=== PATIENT | female | born 1965 | race African-American/Black ===

== ENCOUNTER 2017-06-15 15:49 | Inpatient (IN) | payer OTHER ==
[2017-06-15 15:56] VITALS: BMI 38.7
[2017-06-15] MEDS ORDERED: ACETAMINOPHEN 1000 MG/100 ML VIAL (NON FORMULARY) IVPB ONE (17:05)
[2017-06-15] MEDS ORDERED: LABETALOL HCL 5 MG/1 ML (100MG/20 ML VIAL) IVPUSH ONE (17:05)
[2017-06-15] MEDS ORDERED: ACETAMINOPHEN INJECTION 100 ML IVPB ONE (17:18)
[2017-06-15] MEDS ORDERED: LABETALOL HCL 5 MG/1 ML (200MG/40ML VIAL) IVPB ONE (17:18)
[2017-06-15 17:41] LABS: BASOPHIL 1.7 % (0-2.0); EOSINOPHIL 1.9 % (0-4.5); MCH 29.3 pg (25.7-33.7); MCHC 32.9 g/dl (32.0-36.0); MEAN CELL VOLUME 89.1 fl (80-96); MEAN PLT VOLUME 9.6 fl (7.5-11.1); NEUTROPHILS 53.8 % (42.8-82.8); PLATELET COUNT 228 K/MM3 (134-434); RDW 14.9 % (11.6-15.6); WHITE BLOOD COUNT 6.1 K/mm3 (4.0-10.0)
--- NOTE | 2017-06-15 17:47 | PDOC ---
History of Present Illness - General Chief Complaint: Blood Pressure Problem Stated Complaint: HIGH BP Time Seen by Provider: 06/15/17 16:51 History Source: Patient Exam Limitations: No Limitations - History of Present Illness Initial Comments: 06/15/17 17:47 Patient with history of hypertension, hyper cholesterol, and obesity presents with right frontal throbbing pressure since late afternoon and so had checked her blood pressure work which was noted to be 180/112. Patient currently denies chest pain, shortness of breath, visual changes, dizziness, nausea, follow pain , change in urine pattern, change in bowel pattern, lower extremity edema, orthopnea, or skin discoloration. Patient states takes her blood pressure medication losartan daily and denies any recent change in medications, weight, diet or stress level. Timing/Duration: 4-6 hours Severity: moderate Associated Symptoms: reports: headaches Past History - Travel Traveled outside of the country in the last 30 days: No - Past Medical History Allergies/Adverse Reactions: Allergies Allergy/AdvReac Type Severity Reaction Status Date / Time No Known Allergies Allergy Verified 06/15/17 15:56 Home Medications: Ambulatory Orders Diclofenac Sodium 50 mg PO DAILY 06/15/17 Losartan Potassium 0 mg PO DAILY 06/15/17 HTN: Yes Hypercholesterolemia: Yes - Surgical History Abdominal Surgery: Yes (FIBROIDS) - Reproductive History (#): 5 Para: 2 Therapeutic (s) & number: Yes (3) Tubal Ligation: Yes - Psycho/Social/Smoking Cessation Hx Anxiety: No Suicidal Ideation: No Smoking Status: No Smoking History: Never smoked Have you smoked in the past 12 months: No Number of Cigarettes Smoked Daily: 0 Information on smoking cessation initiated: No Hx Alcohol Use: Yes Drug/Substance Use Hx: No Substance Use Type: Alcohol Hx Substance Use Treatment: No Patient Lives Alone: No Lives with/in: spouse/SO Review of Systems - Review of Systems Able to Perform ROS?: Yes Constitutional: No: Symptoms Reported HEENTM: No: Symptoms Reported Respiratory: No: Symptoms reported Cardiac (ROS): No: Symptoms Reported ABD/GI: No: Symptoms Reported : No: Symptoms Reported Musculoskeletal: No: Symptoms Reported Integumentary: No: Symptoms Reported Neurological: Yes: Headache. No: Weakness, Dizziness Endocrine: No: Symptoms Reported *Physical Exam - Vital Signs Last Vital Signs Temp Pulse Resp BP Pulse Ox 97.8 F 76 18 181/116 100 06/15/17 15:52 06/15/17 17:26 06/15/17 17:26 06/15/17 17:26 06/15/17 17:26 - Physical Exam General Appearance: Yes: Nourished, Appropriately Dressed. No: Apparent Distress HEENT: positive: EOMI, LINDEN. negative: Pale Conjunctivae Neck: positive: Supple. negative: Other (no jvd) Respiratory/Chest: positive: Lungs Clear, Normal Breath Sounds. negative: Respiratory Distress, Accessory Muscle Use Cardiovascular: positive: Regular Rhythm, Regular Rate. negative: Murmur Gastrointestinal/Abdominal: positive: Soft. negative: Tenderness Extremity: positive: Normal Capillary Refill. negative: Pedal Edema Integumentary: positive: Normal Color, Warm, Moist Neurologic: positive: Normal Mood/Affect, Motor Strength 5/5 Heart Score/ECG Review - ECG Intrepretation Rhythm: Regular Rhythm (sinus rhythm at 73 wit Q waves noted in V1 and V2 and lead 3. Otherwise no ST elevation or depression noted.) ED Treatment Course - LABORATORY CBC & Chemistry Diagram: 06/15/17 17:27 06/15/17 17:27 - RADIOLOGY Radiology Studies Ordered: Category Date Time Status HEAD CT WITHOUT CONTRAST [CT] Stat CT Scan 06/15/17 17:05 Ordered CHEST X-RAY PORTABLE* [RAD] Stat Radiology 06/15/17 17:05 Ordered - Medications Given in the ED: ED Medications Discontinued Medications Generic Name Dose Route Start Last Admin Trade Name Freq PRN Reason Stop Dose Admin Acetaminophen 1,000 mg 06/15/17 17:05 06/15/17 17:35 Ofirmev Injection - IVPB 06/15/17 17:06 1,000 mg ONCE ONE Administration Labetalol HCl 20 mg 06/15/17 17:05 06/15/17 17:35 Normodyne Injection - IVPUSH 06/15/17 17:06 20 mg ONCE ONE Administration Medical Decision Making - Medical Decision Making 06/15/17 16:54 Patient history of hypertension dyslipidemia presenting with right frontal headache and elevated BP. Patient on exam and had no acute findings. Patient concerning for hypertension and emergency and was ordered for end organ workup including a head CT and labetalol IV push 20 mg. We'll revitalize shortly. 06/15/17 18:00 Selected Entries 06/15/17 17:26 Pulse Rate [ 76 Left] Respiratory 18 Rate Blood Pressure 181/116 [Arm] O2 Sat by Pulse 100 Oximetry (%) Patient ordered for clonidine 0.2 mg by mouth. patient states headache has resolved 06/15/17 18:49 Laboratory Tests 04/03/15 06/15/17 06/15/17 14:32 17:27 17:27 WBC 6.1 D Hgb 13.0 Hct 39.5 Plt Count 228 D Neutrophils % 53.8 BUN 21 H D Creatinine 1.1 H D Calcium 10.2 H Creatine Kinase 317 H D Troponin I 0.03 0.12 H Patient states headache has resolved. Case discussed with Dr. Clark Doan and will admit to telemetry observation. Patient also be placed in for an echocardiogram and consultation to Dr. Sommers, dressage instructor on-call. *DC/Admit/Observation/Transfer Diagnosis at time of Disposition: Hypertensive emergency, Elevated troponin level - Discharge Dispostion Admit: Yes
[2017-06-15 18:10] LABS: URINE APPEARANCE CLEAR; URINE BILIRUBIN NEGATIVE (NEGATIVE); URINE BLOOD NEGATIVE (NEGATIVE); URINE COLOR LTYELLOW; URINE GLUCOSE (UA) NEGATIVE (NEGATIVE); URINE KETONE NEGATIVE (NEGATIVE); URINE LEUK ESTERASE NEGATIVE (NEGATIVE); URINE NITRITE NEGATIVE (NEGATIVE); URINE PROTEIN NEGATIVE (NEGATIVE); URINE UROBILINOGEN NEGATIVE mg/dL (0.2-1.0)
[2017-06-15] MEDS ORDERED: cloNIDine HCL 0.1 MG TABLET PO ONE (18:11)
[2017-06-15 18:22] LABS: ANION GAP 9 (8-16); BILIRUBIN,TOTAL 0.3 mg/dL (0.2-1.0); CALCIUM 10.2 mg/dL (8.5-10.1); CO2 27 mmol/L (21-32); CREATININE 1.1 mg/dL (0.55-1.02); GLUCOSE,RANDOM 91 mg/dL (74-106); SGOT/AST 20 U/L (15-37); SGPT/ALT 31 U/L (12-78); TOT PROT 7.7 g/dl (6.4-8.2)
[2017-06-15 18:23] LABS: MAGNESIUM 2.4 mg/dL (1.8-2.4)
[2017-06-15 18:25] LABS: ALK PHOS 109 U/L (45-117); TROPONIN I 0.12 ng/ml (0.00-0.05)
--- NOTE | 2017-06-15 18:33 | PDOC ---
*Physical Exam - Vital Signs Last Vital Signs Temp Pulse Resp BP Pulse Ox 97.8 F 76 18 181/116 100 06/15/17 15:52 06/15/17 17:26 06/15/17 17:26 06/15/17 17:26 06/15/17 17:26 ED Treatment Course - LABORATORY CBC & Chemistry Diagram: 06/16/17 07:20 06/17/17 06:00 - ADDITIONAL ORDERS Additional order review: Laboratory Results 06/15/17 06/15/17 06/15/17 17:27 17:27 17:10 Sodium 140 Potassium 3.9 Chloride 104 Carbon Dioxide 27 Anion Gap 9 BUN 21 H D Creatinine 1.1 H D Creat Clearance w eGFR 52.58 Random Glucose 91 Calcium 10.2 H Magnesium 2.4 Total Bilirubin 0.3 D AST 20 ALT 31 D Alkaline Phosphatase 109 D Creatine Kinase 317 H D Troponin I 0.12 H B-Natriuretic Peptide 16.38 Total Protein 7.7 Albumin 4.0 Urine Color Ltyellow Urine Appearance Clear Urine pH 6.0 Urine Protein Negative Urine Glucose (UA) Negative Urine Ketones Negative Urine Blood Negative Urine Nitrite Negative Urine Bilirubin Negative Urine Urobilinogen Negative Ur Leukocyte Esterase Negative 06/15/17 17:27 RBC 4.44 MCV 89.1 MCHC 32.9 RDW 14.9 D MPV 9.6 Neutrophils % 53.8 Lymphocytes % 34.3 D Monocytes % 8.3 Eosinophils % 1.9 D Basophils % 1.7 - Medications Given in the ED: ED Medications Discontinued Medications Generic Name Dose Route Start Last Admin Trade Name Viktoria PRN Reason Stop Dose Admin Acetaminophen 1,000 mg 06/15/17 17:05 06/15/17 17:35 Ofirmev Injection - IVPB 06/15/17 17:06 1,000 mg ONCE ONE Administration Labetalol HCl 20 mg 06/15/17 17:05 06/15/17 17:35 Normodyne Injection - IVPUSH 06/15/17 17:06 20 mg ONCE ONE Administration Medical Decision Making - Medical Decision Making 06/15/17 18:33 Pt seen by the Advanced Practice Provider under my direct supervision Ancillary studies reviewed I agree with plan as outlined by the Advanced Practice Provider ROGE Adams *DC/Admit/Observation/Transfer Diagnosis at time of Disposition: Hypertensive emergency, Elevated troponin - Discharge Dispostion Disposition: HOME Condition at time of disposition: Improved - Prescriptions
[2017-06-15] MEDS ORDERED: cloNIDine HCL 0.1 MG TABLET ONE (19:00)
--- NOTE | 2017-06-15 19:39 | PN ---
Teaching Attending Note Name of Resident: Jazzmine Mccormick ATTENDING PHYSICIAN STATEMENT I saw and evaluated the patient. I reviewed the resident's note and discussed the case with the resident. I agree with the resident's findings and plan as documented. SUBJECTIVE: 52 F with pmhx of HTN, HLD, and Obesity presents with a throbbing headache. Described as right frontal. States headache is very mild now, no visual changes , chest pain or pressure. No n/v/d. States she had taken her med this am. ED Course: Given Labetolol and Clonidine repeat BP 127/81 At 2100 OBJECTIVE: Physical: VS: Vital Signs Period Temp Pulse Resp BP Sys/Garcia Pulse Ox Last 24 Hr 97.8 F 74-76 18-18 181-202/116-122 100-100 GEN: NAD, Resting in bed able to speak full sentences HEENT: NCAT, PERRL CARD: RRR S1,S2 RESP: CTAB ABD: BS X4, NTD to palpation EXT: - C/C/E CBCD WBC 6.1 K/mm3 (4.0-10.0) D 06/15/17 17: RBC 4.44 M/mm3 (3.60-5.2) 06/15/17 17:27 Hgb 13.0 GM/dL (10.7-15.3) 06/15/17 17: Hct 39.5 % (32.4-45.2) 06/15/17 17:27 MCV 89.1 fl (80-96) 06/15/17 17:27 MCHC 32.9 g/dl (32.0-36.0) 06/15/17 17:27 RDW 14.9 % (11.6-15.6) D 06/15/17 17:27 Plt Count 228 K/MM3 (134-434) D 06/15/17 17:27 MPV 9.6 fl (7.5-11.1) 06/15/17 17:27 CMP Sodium 140 mmol/L (136-145) 06/15/17 17:27 Potassium 3.9 mmol/L (3.5-5.1) 06/15/17 17:27 Chloride 104 mmol/L (98-107) 06/15/17 17:27 Carbon Dioxide 27 mmol/L (21-32) 06/15/17 17:27 Anion Gap 9 (8-16) 06/15/17 17:27 BUN 21 mg/dL (7-18) H D 06/15/17 17: Creatinine 1.1 mg/dL (0.55-1.02) H D 06/15/17 17:27 Creat Clearance w eGFR 52.58 (>60) 06/15/17 17: Random Glucose 91 mg/dL (74-106) 06/15/17 17: Calcium 10.2 mg/dL (8.5-10.1) H 06/15/17 17: Total Bilirubin 0.3 mg/dL (0.2-1.0) D 06/15/17: AST 20 U/L (15-37) 06/15/17 17: ALT 31 U/L (12-78) D 06/15/17 17: Alkaline Phosphatase 109 U/L (45-117) D 06/15/17: Total Protein 7.7 g/dl (6.4-8.2) 06/15/17: Albumin 4.0 g/dl (3.4-5.0) 06/15/17 17: CARDIAC ENZYMES Creatine Kinase 317 IU/L (26-192) H D 06/15/17 17: Troponin I 0.12 ng/ml (0.00-0.05) H 06/15/17 17:27 CT HEAD: Negative EKG: NSR 73 QTc 438 Q waves V1/V2 CXR: Negative for acute process ASSESSMENT AND PLAN: 61 F with pmhx of HTN who presented with headache and found to have HTN urgency 1.) HTN Emergency - Elevated Trop/EKG- Possibly due to demand will trend - ASA - C/W Home BP meds, trend down slowly - CT Head negative - Heart score: - Echo complete 2.) NEGRA-?CKD (Cr 1.4 1 yr ago) - C/w Losartan for now 2. DVT PPx - Low Risk- SCDS Rest as per resident note Place in OBS- TELE
[2017-06-15] MEDS ORDERED: ASPIRIN 325 MG TABLET PO ONE (21:07)
--- NOTE | 2017-06-15 21:28 | HP ---
CHIEF COMPLAINT: GARCIA, high blood pressure PCP: Dr. Michelle Torres MD HISTORY OF PRESENT ILLNESS: 52 yo obese woman with PMH of HTN and HLD who, while at work earlier this afternoon, had acute onset frontal and temporal GARCIA, felt lightheaded, and found her BP elevated to 170/110. 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 and reports typing at her desk when she developed a frontal GARCIA with throbbing at her temples bilaterally. The GARCIA prompted her to measure her BP, which was found to be severely elevated. She denies any changes in vision, SOB, chest pain, pressure, or tightness. No recent illness, fever, chills, or n/v. Denies dysuria, frequency or urgency. Regular BMs. ER course was notable for: (1) initial BP 202/102 --> given labetolol 20mg IVpush ONCE and Clonidine 0.2mg PO ONCE --> BP 123/79 (2) Head CT and CXR - no e/o acute pathology (3) GARCIA/temporal pain milder from initial ED presentation Recent Travel: no PAST MEDICAL HISTORY: #HTN - reports being diagnosed approximately 10 years ago. Current home medication is Losartan 25mg PO daily. #HLD #? Patient on Diclofenic - but does not know indication PAST SURGICAL HISTORY: #tubal ligation #uterine fibroid embolization Social History: Works for [employer] Smoking: never Alcohol: social Drugs: denies Family History: non-contributory Allergies: NKDA HOME MEDICATIONS: Home Medications Medication Instructions Recorded Diclofenac Sodium 50 mg PO DAILY 06/15/17 Losartan Potassium 25 mg PO DAILY 06/15/17 REVIEW OF SYSTEMS CONSTITUTIONAL: Absent: fever, chills, diaphoresis, generalized weakness, malaise, loss of appetite, weight change HEENT: Absent: rhinorrhea, nasal congestion, throat pain, throat swelling, difficulty swallowing, mouth swelling, ear pain, eye pain, visual changes CARDIOVASCULAR: Absent: chest pain, syncope, palpitations, irregular heart rate, lightheadedness , peripheral edema RESPIRATORY: Absent: cough, shortness of breath, dyspnea with exertion, orthopnea, wheezing, stridor, hemoptysis GASTROINTESTINAL: Absent: abdominal pain, abdominal distension, nausea, vomiting, diarrhea, constipation, melena, hematochezia GENITOURINARY: Absent: dysuria, frequency, urgency, hesitancy, hematuria, flank pain, genital pain MUSCULOSKELETAL: Absent: myalgia, arthralgia, joint swelling, back pain, neck pain SKIN: Absent: rash, itching, pallor HEMATOLOGIC/IMMUNOLOGIC: Absent: easy bleeding, easy bruising, lymphadenopathy, frequent infections ENDOCRINE: Absent: unexplained weight gain, unexplained weight loss, heat intolerance, cold intolerance NEUROLOGIC: +headache, lightheadedness Absent: focal weakness or paresthesias, dizziness, unsteady gait, seizure, mental status changes, bladder or bowel incontinence PSYCHIATRIC: Absent: anxiety, depression, suicidal or homicidal ideation, hallucinations. PHYSICAL EXAMINATION Vital Signs - 24 hr 06/15/17 06/15/17 06/15/17 15:52 17:26 20:43 Temperature 97.8 F Pulse Rate 74 Pulse Rate [ 76 79 Left] Respiratory 18 18 17 Rate Blood Pressure 202/122 Blood Pressure 181/116 123/79 [Arm] O2 Sat by Pulse 100 100 99 Oximetry (%) GENERAL: Awake, alert, and fully oriented, in no acute distress. HEAD: Normal with no signs of trauma, no ttp over temples, frontal, or maxillary sinuses EYES: PERRLA, EOMI, sclera anicteric, conjunctiva clear EARS, NOSE, THROAT: Oropharynx clear without exudates. Moist mucous membranes. NECK: Supple, no cervical LAD LUNGS: CTAB, no wheezes, and no crackles. No accessory muscle use. HEART: RRR, normal S1/S2, no murmur, rub or gallop. ABDOMEN: Obese, soft, NTND, normoactive bowel sounds LOWER EXTREMITIES: 2+ pulses, warm, well-perfused. No calf tenderness. No peripheral edema. NEUROLOGICAL: Grossly intact, not formally tested. PSYCHIATRIC: Cooperative. Good eye contact. Appropriate mood and affect. SKIN: Warm, dry, normal turgor, no rashes or lesions noted Laboratory Last Values WBC 6.1 K/mm3 (4.0-10.0) D 06/15/17 17: RBC 4.44 M/mm3 (3.60-5.2) 06/15/17 17:27 Hgb 13.0 GM/dL (10.7-15.3) 06/15/17 17: Hct 39.5 % (32.4-45.2) 06/15/17 17: MCV 89.1 fl (80-96) 06/15/17 17: MCH 29.3 pg (25.7-33.7) 06/15/17 17: MCHC 32.9 g/dl (32.0-36.0) 06/15/17 17: RDW 14.9 % (11.6-15.6) D 06/15/17 17: Plt Count 228 K/MM3 (134-434) D 06/15/17 17: MPV 9.6 fl (7.5-11.1) 06/15/17 17: Neutrophils % 53.8 % (42.8-82.8) 06/15/17: Lymphocytes % 34.3 % (8-40) D 06/15/17: Monocytes % 8.3 % (3.8-10.2) 06/15/17: Eosinophils % 1.9 % (0-4.5) D 06/15/17: Basophils % 1.7 % (0-2.0) 06/15/17 17: Sodium 140 mmol/L (136-145) 06/15/17 17: Potassium 3.9 mmol/L (3.5-5.1) 06/15/17: Chloride 104 mmol/L (98-107) 06/15/17: Carbon Dioxide 27 mmol/L (21-32) 06/15/17 17: Anion Gap 9 (8-16) 06/15/17 17: BUN 21 mg/dL (7-18) H D 06/15/17 17: Creatinine 1.1 mg/dL (0.55-1.02) H D 06/15/17 17: Creat Clearance w eGFR 52.58 (>60) 06/15/17 17: Random Glucose 91 mg/dL (74-106) 06/15/17 17: Calcium 10.2 mg/dL (8.5-10.1) H 06/15/17 17: Magnesium 2.4 mg/dL (1.8-2.4) 06/15/17 17: Total Bilirubin 0.3 mg/dL (0.2-1.0) D 06/15/17 17: AST 20 U/L (15-37) 06/15/17 17:27 ALT 31 U/L (12-78) D 06/15/17 17:27 Alkaline Phosphatase 109 U/L (45-117) D 06/15/17 17:27 Creatine Kinase 317 IU/L (26-192) H D 06/15/17 17:27 Creatine Kinase Index 0.7 % (0.0-5.0) 06/15/17 17:27 CK-MB (CK-2) 2.218 ng/ml (0.5-3.6) 06/15/17 17:27 Troponin I 0.12 ng/ml (0.00-0.05) H 06/15/17 17:27 B-Natriuretic Peptide 16.38 pg/ml (5-125) 06/15/17 17:27 Total Protein 7.7 g/dl (6.4-8.2) 06/15/17 17:27 Albumin 4.0 g/dl (3.4-5.0) 06/15/17 17:27 Urine Color Ltyellow 06/15/17 17:10 Urine Appearance Clear 06/15/17 17:10 Urine pH 6.0 (5.0-8.0) 06/15/17 17:10 Urine Protein Negative (NEGATIVE) 06/15/17 17:10 Urine Glucose (UA) Negative (NEGATIVE) 06/15/17 17:10 Urine Ketones Negative (NEGATIVE) 06/15/17 17:10 Urine Blood Negative (NEGATIVE) 06/15/17 17:10 Urine Nitrite Negative (NEGATIVE) 06/15/17 17:10 Urine Bilirubin Negative (NEGATIVE) 06/15/17 17:10 Urine Urobilinogen Negative mg/dL (0.2-1.0) 06/15/17 17:10 Ur Leukocyte Esterase Negative (NEGATIVE) 06/15/17 17:10 IMAGING: Head CT (06/15/2017): No acute pathology CXR (06/15/2017): No pneumothorax, pleural effusion, or consolidation EKG (06/15/2017): NSR, rate 73, QTc 438, normal axis, Q waves in septal leads V1 ,V2 ASSESSMENT/PLAN: 52yo woman with h/o HTN presents in hypertensive emergency and admitted for continuous cardiac observation. #Hypertensive emergency -Initial troponin elevated - likely 2/2 to demand. Will trend q6h -Repeat EKG - initial showed Q waves in V1, V2. Repeat ordered in 6h -ASA 325mg PO ONCE -ECHO ordered -Cardiology consulted #NEGRA vs CKD vs acute on CKD -Creatine 1.1 (last known 1.4 in Aug 2015) -Continue home Losartan 25mg PO daily #F/E/N -Hold IVF -Electrolytes wnl -Na controlled diet #Prophylaxis -DVT: low risk - encourage early ambulation -GI ppx not indicated #Dispo -Admit to observation telemetry -FULL code d/w Dr. Deleon. Jazzmine Mccormick MD PGY-1 Visit type - Emergency Visit Emergency Visit: Yes ED Registration Date: 06/17/17 Care time: The patient presented to the Emergency Department on the above date and was hospitalized for further evaluation of their emergent condition. - New Patient This patient is new to me today: Yes Date on this admission: 06/17/17 - Critical Care Critical Care patient: No
--- NOTE | 2017-06-16 00:21 | CON.CARD ---
Consult Consult Specialty:: cardiology Reason for Consultation:: HTN - History of Present Illness Chief Complaint: Pt still with headache. History of Present Illness: 52 yr old woman with history of hypertension, hypercholesterol, and obesity, presents with right frontal throbbing pressure in head since late afternoon and so had checked her blood pressure work which was noted to be 180/112. Patient currently denies chest pain, shortness of breath, visual changes, dizziness, nausea, follow pain, change in urine pattern, change in bowel pattern, lower extremity edema, orthopnea, or skin discoloration. Patient states takes her blood pressure medication losartan daily and denies any recent change in medications, weight, diet or stress level. Timing/Duration: 4-6 hours Severity: moderate Associated Symptoms: reports: headaches - History Source History Provided By: Patient, Medical Record Limitations to Obtaining History: No Limitations - Past Medical History Cardio/Vascular: Yes: HTN, Hyperlipdemia, Other (obesity) ...LMP: 07/07/15 - Alcohol/Substance Use Hx Alcohol Use: Yes - Smoking History Smoking history: Never smoked Have you smoked in the past 12 months: No Aproximately how many cigarettes per day: 0 Home Medications - Allergies Allergies/Adverse Reactions: Allergies Allergy/AdvReac Type Severity Reaction Status Date / Time No Known Allergies Allergy Verified 06/15/17 15:56 - Home Medications Home Medications: Ambulatory Orders Losartan Potassium 100 mg PO DAILY 06/15/17 Triamterene/Hydrochlorothiazid [Triamterene-Hctz 37.5-25 mg Cp] 1 each PO DAILY 06/16/17 Atorvastatin Ca [Lipitor] 40 mg PO HS #30 tablet 06/17/17 Family Disease History - Family Disease History Family History: Unable to Obtain Review of Systems - Review of Systems Constitutional: reports: No Symptoms Eyes: reports: No Symptoms HENT: reports: Other (throbbing GARCIA) Neck: reports: No Symptoms Cardiovascular: reports: No Symptoms Respiratory: reports: No Symptoms Gastrointestinal: reports: No Symptoms Genitourinary: reports: No Symptoms Breasts: reports: No Symptoms Reported Musculoskeletal: reports: Muscle Pain Integumentary: reports: No Symptoms Neurological: reports: No Symptoms Endocrine: reports: No Symptoms Hematology/Lymphatic: reports: No Symptoms Psychiatric: reports: No Symptoms - Risk Factors Known Risk Factors: Yes: Age, Hypercholesterolemia, Hypertension, Physical Inactivity Vital Signs: Vital Signs Temperature 97.9 F 06/15/17 22:45 Pulse Rate 80 06/15/17 22:45 Respiratory Rate 20 06/15/17 22:45 Blood Pressure 135/82 06/15/17 22:45 O2 Sat by Pulse Oximetry (%) 99 06/15/17 20:43 Constitutional: Yes: Anxious Eyes: Yes: WNL HENT: Yes: WNL Neck: Yes: WNL Respiratory: Yes: WNL Gastrointestinal: Yes: Normal Bowel Sounds Renal/: Yes: WNL Cardiovascular: Yes: Regular Rate and Rhythm JVD: No Carotid Bruit: No PMI: Non-Displaced Heart Sounds: Yes: S1, S2, S4 Murmur: Yes: Systolic Murmur, Grade 2 Musculoskeletal: Yes: Back Pain, Muscle Weakness Extremities: Yes: Cool Edema: No Peripheral Pulses WNL: Yes Integumentary: Yes: WNL Neurological: Yes: Alert, Oriented, Weakness Psychiatric: Yes: Other (anxious) Imaging - Results Other: Image Reviewed (telemetry: NSR) Problem List - Problems (1) Hypertensive emergency Assessment/Plan: On losartan; serial BP checks. F/u BUN/Cr and electrolytes. ECHO for LVEF, wall thickness. Code(s): I16.1 - HYPERTENSIVE EMERGENCY (2) Sleep apnea Assessment/Plan: risk factors for AJAY. Sleep studies when stable. Code(s): G47.30 - SLEEP APNEA, UNSPECIFIED (3) Hypercalcemia Assessment/Plan: f/u mild elevation. Code(s): E83.52 - HYPERCALCEMIA (4) Elevated troponin Assessment/Plan: Mildly abnormal TNI; low CK/MB relative index. HTN, stress may contribute to this elevation. F/u EKG; telemetry; serial TNI. Given multiple cardiac risks, would obtain stress test after BP is controlled. ECHO for LVEF, wall motion. Code(s): R74.8 - ABNORMAL LEVELS OF OTHER SERUM ENZYMES (5) Hyperlipidemia Assessment/Plan: f/u lipid profile. Code(s): E78.5 - HYPERLIPIDEMIA, UNSPECIFIED (6) Headache Assessment/Plan: CT head: no acute pathology. BP control. Code(s): R51 - HEADACHE
[2017-06-16 08:38] LABS: CHOLESTEROL 238 mg/dL (50-200); LDL CHOLESTEROL (ONLY SJRH) 162 mg/dL (5-100)
[2017-06-16 08:45] LABS: THYROID STIMULATING HORMONE 3.05 uIU/ml (0.358-3.74)
[2017-06-16 08:47] LABS: MCH 30.1 pg (25.7-33.7); MCHC 33.4 g/dl (32.0-36.0); MEAN PLT VOLUME 9.8 fl (7.5-11.1); PLATELET COUNT 231 K/MM3 (134-434); RDW 15.4 % (11.6-15.6); WHITE BLOOD COUNT 4.6 K/mm3 (4.0-10.0)
[2017-06-16 09:09] LABS: CO2 28 mmol/L (21-32); CREATININE 1.1 mg/dL (0.55-1.02); GLUCOSE,RANDOM 104 mg/dL (74-106)
[2017-06-16 09:46] LABS: ANION GAP 9 (8-16)
--- NOTE | 2017-06-16 09:56 | PN ---
Progress Note, Physician History of Present Illness: Patient with history of hypertension, hyper cholesterol, and obesity presents with right frontal throbbing pressure since late afternoon and so had checked her blood pressure work which was noted to be 180/112. Patient currently denies chest pain, shortness of breath, visual changes, dizziness, nausea, follow pain , change in urine pattern, change in bowel pattern, lower extremity edema, orthopnea, or skin discoloration. Patient states takes her blood pressure medication losartan daily and denies any recent change in medications, weight, diet or stress level. - Current Medication List Current Medications: Active Medications Losartan Potassium (Cozaar -) 25 mg PO DAILY JONE - Objective Vital Signs: Vital Signs Temperature 98 F 06/16/17 06:00 Pulse Rate 70 06/16/17 06:00 Respiratory Rate 18 06/16/17 06:00 Blood Pressure 134/86 06/16/17 06:00 O2 Sat by Pulse Oximetry (%) 99 06/16/17 06:25 Eyes: Yes: WNL, Conjunctiva Clear, EOM Intact HENT: Yes: WNL, Atraumatic, Normocephalic Neck: Yes: WNL, Supple, Trachea Midline Cardiovascular: Yes: WNL, Regular Rate and Rhythm Respiratory: Yes: WNL, Regular, CTA Bilaterally Gastrointestinal: Yes: WNL, Normal Bowel Sounds Genitourinary: Yes: WNL Musculoskeletal: Yes: WNL Extremities: Yes: WNL Edema: No Integumentary: Yes: WNL Neurological: Yes: WNL, Alert, Oriented ...Motor Strength: WNL Psychiatric: Yes: WNL Labs: CBC, BMP 06/16/17 07:20 06/16/17 05:40 Laboratory Tests 06/15/17 06/15/17 06/15/17 17:10 17:27 17:27 WBC 6.1 D RBC 4.44 Hgb 13.0 Hct 39.5 MCV 89.1 MCH 29.3 MCHC 32.9 RDW 14.9 D Plt Count 228 D MPV 9.6 Neutrophils % 53.8 Lymphocytes % 34.3 D Monocytes % 8.3 Eosinophils % 1.9 D Basophils % 1.7 Sodium 140 Potassium 3.9 Chloride 104 Carbon Dioxide 27 Anion Gap 9 BUN 21 H D Creatinine 1.1 H D Creat Clearance w eGFR 52.58 Random Glucose 91 Calcium 10.2 H Magnesium Total Bilirubin 0.3 D AST 20 ALT 31 D Alkaline Phosphatase 109 D Creatine Kinase 317 H D Creatine Kinase Index 0.7 CK-MB (CK-2) 2.218 Troponin I 0.12 H B-Natriuretic Peptide Total Protein 7.7 Albumin 4.0 Triglycerides Cholesterol Total LDL Cholesterol HDL Cholesterol TSH Urine Color Ltyellow Urine Appearance Clear Urine pH 6.0 Ur Specific Douc[place] 1.025 Urine Protein Negative Urine Glucose (UA) Negative Urine Ketones Negative Urine Blood Negative Urine Nitrite Negative Urine Bilirubin Negative Urine Urobilinogen Negative Ur Leukocyte Esterase Negative 06/15/17 06/15/17 06/16/17 17:27 23:45 05:40 WBC RBC Hgb Hct MCV MCH MCHC RDW Plt Count MPV Neutrophils % Lymphocytes % Monocytes % Eosinophils % Basophils % Sodium 140 Potassium 4.3 Chloride 103 Carbon Dioxide 28 Anion Gap 9 BUN 17 Creatinine 1.1 H Creat Clearance w eGFR Random Glucose 104 Calcium 10.0 Magnesium 2.4 Total Bilirubin AST ALT Alkaline Phosphatase Creatine Kinase Creatine Kinase Index CK-MB (CK-2) Troponin I 0.11 H B-Natriuretic Peptide 16.38 Total Protein Albumin Triglycerides 136 Cholesterol 238 H Total LDL Cholesterol 162 H HDL Cholesterol 52 TSH 3.05 Urine Color Urine Appearance Urine pH Ur Specific Doucette Urine Protein Urine Glucose (UA) Urine Ketones Urine Blood Urine Nitrite Urine Bilirubin Urine Urobilinogen Ur Leukocyte Esterase 06/16/17 06/16/17 05:40 07:20 WBC 4.6 RBC 4.14 Hgb 12.5 Hct 37.3 MCV 90.0 MCH 30.1 MCHC 33.4 RDW 15.4 Plt Count 231 MPV 9.8 Neutrophils % Lymphocytes % Monocytes % Eosinophils % Basophils % Sodium Cancelled Potassium Cancelled Chloride Cancelled Carbon Dioxide Cancelled Anion Gap Cancelled BUN Cancelled Creatinine Cancelled Creat Clearance w eGFR Random Glucose Cancelled Calcium Cancelled Magnesium Total Bilirubin AST ALT Alkaline Phosphatase Creatine Kinase Creatine Kinase Index CK-MB (CK-2) Troponin I B-Natriuretic Peptide Total Protein Albumin Triglycerides Cholesterol Total LDL Cholesterol HDL Cholesterol TSH Urine Color Urine Appearance Urine pH Ur Specific Doucette Urine Protein Urine Glucose (UA) Urine Ketones Urine Blood Urine Nitrite Urine Bilirubin Urine Urobilinogen Ur Leukocyte Esterase Assessment/Plan - Problems (1) Hypertensive emergency Assessment/Plan: On losartan; serial BP checks. F/u BUN/Cr and electrolytes. ECHO for LVEF, wall thickness. Code(s): I16.1 - HYPERTENSIVE EMERGENCY (2) Sleep apnea Assessment/Plan: risk factors for AJAY. Sleep studies when stable. Code(s): G47.30 - SLEEP APNEA, UNSPECIFIED (3) Hypercalcemia Assessment/Plan: f/u mild elevation. Code(s): E83.52 - HYPERCALCEMIA (4) Elevated troponin Assessment/Plan: Mildly abnormal TNI; low CK/MB relative index. HTN, stress may contribute to this elevation. F/u EKG; telemetry; serial TNI. Given multiple cardiac risks, would obtain stress test after BP is controlled. ECHO for LVEF, wall motion. Code(s): R74.8 - ABNORMAL LEVELS OF OTHER SERUM ENZYMES (5) Hyperlipidemia Assessment/Plan: strat lipitor Code(s): E78.5 - HYPERLIPIDEMIA, UNSPECIFIED (6) Headache Assessment/Plan: CT head: no acute pathology. BP control. Code(s): R51 - HEADACHE
[2017-06-16] MEDS ORDERED: LOSARTAN POTASSIUM 25 MG TABLET PO SCH ×2 (10:00)
[2017-06-16] MEDS ORDERED: ATORVASTATIN CA 20 MG TABLET (FP) PO ONE ×2 (12:15→17:00)
--- NOTE | 2017-06-16 12:48 | EKG ---
Test Reason : Blood Pressure : / mmHG Vent. Rate : 073 BPM Atrial Rate : 073 BPM P-R Int : 186 ms QRS Dur : 080 ms QT Int : 398 ms P-R-T Axes : 054 -01 044 degrees QTc Int : 438 ms NORMAL SINUS RHYTHM SEPTAL INFARCT , AGE UNDETERMINED ABNORMAL ECG WHEN COMPARED WITH ECG OF 03-APR-2015 14:46, NO SIGNIFICANT CHANGE WAS FOUND Confirmed by AGUS CAMPOS MD ([id number]) on 06/16/2017 12:47:31 PM Referred By: Confirmed By:AGUS CAMPOS MD
--- NOTE | 2017-06-16 13:00 | EKG ---
Test Reason : Blood Pressure : / mmHG Vent. Rate : 071 BPM Atrial Rate : 071 BPM P-R Int : 198 ms QRS Dur : 082 ms QT Int : 418 ms P-R-T Axes : 052 015 035 degrees QTc Int : 454 ms NORMAL SINUS RHYTHM POSSIBLE ANTEROSEPTAL INFARCT (CITED ON OR BEFORE 03-APR-2015) ABNORMAL ECG WHEN COMPARED WITH ECG OF 15-JUN-2017 17:55, NO SIGNIFICANT CHANGE WAS FOUND Confirmed by AGUS CAMPOS MD ([id number]) on 06/16/2017 1:00:27 PM Referred By: Confirmed By:AGUS CAMPOS MD
--- NOTE | 2017-06-16 15:49 | PN ---
Teaching Attending Note Name of Resident: Samira Mello ATTENDING PHYSICIAN STATEMENT I saw and evaluated the patient. I reviewed the resident's note and discussed the case with the resident. I agree with the resident's findings and plan as documented. SUBJECTIVE: no fever or chills, has no cp . has mild GARCIA . no visual changes or weakness/ numbness/tingling OBJECTIVE: NAD ,, AAOx3 CV: RRR, no MRG, n o delay in pulse between radial and femoral pulse Lungs: CTAB ext: no edema Abd: soft, NT, ND , NL BS, no bruits over renal arteries. A/P : 52 y/o lady with h/o HTN, chronic hip pain , who presented with GARCIA and was found to have hypertensive emergency 1- HTN emergency. resolved now . team contacted her pharmacy and PCP to find she was on losartan 100 not 25 mg , daily and treiamterine on exam there is no bruits over renal arteries or any delay between radial and femoral pulses. - Increase losartan to 100 - hold triamterine until renal function is stable - dieat and life style changes 2- Elevated trop : likely demand ischemia due to HTN emergency - stress test - start ASA - echo pending 3- Hyperlpipidemia , LDL of 165. - per [place] calculator , her 10 yr risk for CAD is 28.45 %. statins are indicated for her - start lipitor 4- NEGRA VS CKD , could be due to HTN or due to chronci NSAIDs use. - hold NSAIDs - monitor renal function 5- DVT PX .
[2017-06-16] MEDS: ASPIRIN COATED 81 MG TABLET.EC PO SCH (17:02)
--- NOTE | 2017-06-16 19:34 | PN ---
Physical Exam: SUBJECTIVE: Patient seen and examined today. No CP, no sob, no fevers, no chills. Still complains of mild headaches 5/10, near temples. OBJECTIVE: Vital Signs Period Temp Pulse Resp BP Sys/Garcia Pulse Ox Last 24 Hr 97.9 F-98.2 F 70-82 17-20 123-138/69-86 99-99 GENERAL: Awake, alert, and fully oriented, in no acute distress. HEAD: Normal with no signs of trauma, No tenderness to palpations over temples, frontal, or maxillary sinuses EYES: PERRLA, EOMI, sclera anicteric, conjunctiva clear EARS, NOSE, THROAT: Oropharynx clear without exudates. Moist mucous membranes. NECK: Supple, no cervical LAD LUNGS: CTAB, no wheezes, and no crackles. No accessory muscle use. HEART: RRR, normal S1/S2, no murmur, rub or gallop. ABDOMEN: Obese, soft, NTND, normoactive bowel sounds LOWER EXTREMITIES: 2+ pulses, warm, well-perfused. No calf tenderness. No peripheral edema. NEUROLOGICAL: No facial droop, sensation intact to vince and body bilaterally, MSk 5/5 in all extremities, reflexes 2+, cranial nerves intact Laboratory Results - last 24 hr 06/15/17 06/16/17 06/16/17 23:45 05:40 05:40 WBC RBC Hgb Hct MCV MCH MCHC RDW Plt Count MPV Sodium 140 Cancelled Potassium 4.3 Cancelled Chloride 103 Cancelled Carbon Dioxide 28 Cancelled Anion Gap 9 Cancelled BUN 17 Cancelled Creatinine 1.1 H Cancelled Random Glucose 104 Cancelled Calcium 10.0 Cancelled Troponin I 0.11 H Triglycerides 136 Cholesterol 238 H Total LDL Cholesterol 162 H HDL Cholesterol 52 TSH 3.05 06/16/17 07:20 WBC 4.6 RBC 4.14 Hgb 12.5 Hct 37.3 MCV 90.0 MCH 30.1 MCHC 33.4 RDW 15.4 Plt Count 231 MPV 9.8 Sodium Potassium Chloride Carbon Dioxide Anion Gap BUN Creatinine Random Glucose Calcium Troponin I Triglycerides Cholesterol Total LDL Cholesterol HDL Cholesterol TSH Active Medications Generic Name Dose Route Start Last Admin Trade Name Freq PRN Reason Stop Dose Admin Aspirin 81 mg 06/16/17 11:30 06/16/17 17:02 Ecotrin - PO 81 mg DAILY JONE Administration Atorvastatin Calcium 20 mg 06/17/17 22:00 Lipitor - PO HS JONE Losartan Potassium 25 mg 06/16/17 10:00 06/16/17 10:36 Cozaar - PO 25 mg DAILY JONE Administration IMAGING CT Head - no acute pathology ASSESSMENT/PLAN: Pt is a 52yo woman with PMH of HTN, HLD who presented to the ER in hypertensive emergency with BP of 202/112 and elevated troponins # Hypertensive emergency - Initial troponins 0.12 --> 0.11 trending down, without ST changes on EKG are likely due to demand ischemia, less likely primary cardiac since pt has no chest pain - Will get stress test tomorrow to r/o abnormalities - Pt received a loading dose of ASA 325mg PO in ER, continue ASA 81mg PO QD - Correct home regimen for patient is Losartan 100mg QD + Triamterene/HCTZ 1 tab PO QD with parameters - Echo is WNL # Temporal Headaches - Likely due to hypertensive emergency, unlikely temporal arteritis, no visual symptoms - Continue to monitor # Hyperlipidemia - Pt has total cholesterol 238, LDL 162, non diabetic, but high [place] Score suggests tx with statin, pt started on Atorvastatin 20mg PO HS - 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
[2017-06-16] MEDS: HEPARIN NA (PORCINE) 5,000 UNITS/ML 1ML VIAL SQ SCH (21:29)
--- NOTE | 2017-06-17 06:38 | PN ---
Physical Exam: SUBJECTIVE: Patient seen and examined this AM. No CP, no SOB, no headaches. States she feels back to baseline. Asking for sow manager consult. OBJECTIVE: Vital Signs Period Temp Pulse Resp BP Sys/Garcia Pulse Ox Last 24 Hr 98 F-98.4 F 77-84 18-20 125-141/69-89 99-99 GENERAL: Awake, alert, and fully oriented, in no acute distress. HEAD: Normal with no signs of trauma, No tenderness to palpations over temples, frontal, or maxillary sinuses EYES: PERRLA, EOMI, sclera anicteric, conjunctiva clear EARS, NOSE, THROAT: Oropharynx clear without exudates. Moist mucous membranes. NECK: Supple, no cervical LAD LUNGS: CTAB, no wheezes, and no crackles. No accessory muscle use. HEART: RRR, normal S1/S2, no murmur, rub or gallop. ABDOMEN: Obese, soft, NTND, normoactive bowel sounds LOWER EXTREMITIES: 2+ pulses, warm, well-perfused. No calf tenderness. No peripheral edema. NEUROLOGICAL: No facial droop, sensation intact to vince and body bilaterally, MSk 5/5 in all extremities, reflexes 2+, cranial nerves intact Laboratory Results - last 24 hr 06/16/17 06/16/17 06/16/17 05:40 05:40 07:20 WBC 4.6 RBC 4.14 Hgb 12.5 Hct 37.3 MCV 90.0 MCH 30.1 MCHC 33.4 RDW 15.4 Plt Count 231 MPV 9.8 Sodium 140 Cancelled Potassium 4.3 Cancelled Chloride 103 Cancelled Carbon Dioxide 28 Cancelled Anion Gap 9 Cancelled BUN 17 Cancelled Creatinine 1.1 H Cancelled Random Glucose 104 Cancelled Calcium 10.0 Cancelled Triglycerides 136 Cholesterol 238 H Total LDL Cholesterol 162 H HDL Cholesterol 52 TSH 3.05 Active Medications Generic Name Dose Route Start Last Admin Trade Name Freq PRN Reason Stop Dose Admin Aspirin 81 mg 06/16/17 11:30 06/16/17 17:02 Ecotrin - PO 81 mg DAILY JONE Administration Atorvastatin Calcium 20 mg 06/17/17 22:00 Lipitor - PO HS JONE Heparin Sodium (Porcine) 5,000 unit 06/16/17 22:00 06/16/17 21:29 Heparin - SQ 5,000 unit BID JOEN Administration Losartan Potassium 100 mg 06/17/17 10:00 Cozaar - PO DAILY JONE Triamterene/HCTZ 1 cap 06/17/17 10:00 Dyazide 25/37.5mg PO DAILY JONE IMAGING CT Head - no acute pathology ASSESSMENT/PLAN: Pt is a 52yo woman with PMH of HTN, HLD who presented to the ER in hypertensive emergency with BP of 202/112 and elevated troponins # Hypertensive emergency - Initial troponins 0.12 --> 0.11 trending down, without ST changes on EKG are likely due to demand ischemia, less likely primary cardiac since pt has no chest pain - Stress test shows no perfusion defects, hypertensive exercise - Pt received a loading dose of ASA 325mg PO in ER, continue ASA 81mg PO QD - Correct home regimen for patient is Losartan 100mg QD + Triamterene/HCTZ 1 tab PO QD with parameters - Echo is WNL # Temporal Headaches - Likely due to hypertensive emergency, unlikely temporal arteritis, no visual symptoms # Hyperlipidemia - Pt has total cholesterol 238, LDL 162, non diabetic, but high [place] Score 10 suggests tx with statin, pt started on Atorvastatin 20mg PO HS - 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
[2017-06-17 09:23] LABS: ANION GAP 8 (8-16); CO2 27 mmol/L (21-32); CREATININE 1.1 mg/dL (0.55-1.02); GLUCOSE,RANDOM 104 mg/dL (74-106)
[2017-06-17] MEDS ORDERED: PT OWN MED DRAWER 7, Y5N ONE (09:28)
--- NOTE | 2017-06-17 09:33 | PN ---
Progress Note, Physician Chief Complaint: Alert; no chest pain or dyspnea. History of Present Illness: Patient with history of hypertension, hyper cholesterol, and obesity presents with right frontal throbbing pressure since late afternoon and so had checked her blood pressure work which was noted to be 180/112. Patient currently denies chest pain, shortness of breath, visual changes, dizziness, nausea, follow pain , change in urine pattern, change in bowel pattern, lower extremity edema, orthopnea, or skin discoloration. Patient states takes her blood pressure medication losartan daily and denies any recent change in medications, weight, diet or stress level. Timing/Duration: 4-6 hours Severity: moderate Associated Symptoms: reports: headaches - Current Medication List Current Medications: Active Medications Aspirin (Ecotrin -) 81 mg PO DAILY [facility] Last Admin: 06/16/17 17:02 Dose: 81 mg Atorvastatin Calcium (Lipitor -) 20 mg PO HS [facility] Heparin Sodium (Porcine) (Heparin -) 5,000 unit SQ BID [facility] Last Admin: 06/16/17 21:29 Dose: 5,000 unit Losartan Potassium (Cozaar -) 100 mg PO DAILY [facility] Last Admin: 06/17/17 09:13 Dose: 100 mg Triamterene/HCTZ (Dyazide 25/37.5mg) 1 cap PO DAILY [facility] - Objective Vital Signs: Vital Signs Temperature 98.2 F 06/17/17 09:14 Pulse Rate 69 06/17/17 09:14 Respiratory Rate 18 06/17/17 09:14 Blood Pressure 154/100 06/17/17 09:14 O2 Sat by Pulse Oximetry (%) 99 06/16/17 23:32 Constitutional: Yes: Calm Eyes: Yes: WNL HENT: Yes: WNL Neck: Yes: WNL Cardiovascular: Yes: WNL, S1, S2 Respiratory: Yes: Regular Gastrointestinal: Yes: Soft ...Rectal Exam: Yes: Deferred Genitourinary: No: Anuria Breast(s): Yes: WNL Musculoskeletal: Yes: Joint Stiffness Extremities: Yes: Cool Edema: No Peripheral Pulses WNL: Yes Neurological: Yes: WNL Psychiatric: Yes: WNL Labs: CBC, BMP 06/16/17 07:20 06/17/17 06:00 Problem List - Problems (1) Hypertensive emergency Assessment/Plan: BP better-controlled. On losartan and dyazide; serial BP checks. F/u BUN/Cr and electrolytes. ECHO: normal LVEF; abnormal diastolic compliance. Stress MIBI today. Addendum: normal Stress MIBI. Code(s): I16.1 - HYPERTENSIVE EMERGENCY (2) Sleep apnea Assessment/Plan: risk factors for AJAY. Sleep studies when stable. Code(s): G47.30 - SLEEP APNEA, UNSPECIFIED (3) Hypercalcemia Assessment/Plan: f/u mild elevation. Code(s): E83.52 - HYPERCALCEMIA (4) Elevated troponin Assessment/Plan: Mildly abnormal TNI; low CK/MB relative index. HTN, stress may contribute to this elevation. F/u EKG; telemetry; serial TNI. Given multiple cardiac risks, would obtain stress test after BP is controlled. ECHO for LVEF, wall motion. Code(s): R74.8 - ABNORMAL LEVELS OF OTHER SERUM ENZYMES (5) Hyperlipidemia Assessment/Plan: LDL 162 mg/dL. Start statin. Code(s): E78.5 - HYPERLIPIDEMIA, UNSPECIFIED (6) Headache Assessment/Plan: CT head: no acute pathology. BP control. Code(s): R51 - HEADACHE (7) Atypical chest pain Assessment/Plan: both right and left sided; sharp and pressure-like pain, both at rest and with exertion, that lasts seconds to a minute. ALONSO sedentary. obese Family hx CVA (mother, in her 60s). HTN LDL cholesterol >160 ?old [place] by EKG. Diastolic dysfunction. anxiety. Stress MIBI: no ischemia. Code(s): R07.89 - OTHER CHEST PAIN
[2017-06-17] MEDS ORDERED: LOSARTAN POTASSIUM 50 MG TABLET (FP) PO SCH (10:00)
[2017-06-17] MEDS ORDERED: TRIAMTERENE AND HCTZ - 37.5 MG/25 MG CAPSULE PO SCH (10:00)
[2017-06-17] MEDS: HEPARIN NA (PORCINE) 5,000 UNITS/ML 1ML VIAL SQ SCH (13:11)
[2017-06-17] MEDS: ASPIRIN COATED 81 MG TABLET.EC PO SCH (13:11)
[2017-06-17 13:39] VITALS: BP 145/84; PULSE 96; TEMP 98.6
--- NOTE | 2017-06-17 14:47 | PN ---
Teaching Attending Note Name of Resident: Samira Mello ATTENDING PHYSICIAN STATEMENT I saw and evaluated the patient. I reviewed the resident's note and discussed the case with the resident. I agree with the resident's findings and plan as documented. SUBJECTIVE: no fever or chills, has no CP or SOB . denies GARCIA OBJECTIVE: NAD ,, AAOx3 CV: RRR, no MRG, Lungs: CTAB ext: no edema A/P : 52 y/o lady with h/o HTN, chronic hip pain , who presented with GARCIA and was found to have hypertensive emergency 1- HTN emergency. resolved now . - cont losartan and diuretics 2- Elevated trop : likely demand ischemia due to HTN emergency - stress test, neg - will ask Dr Mishra if she needs asa at dc , as she has Q waves in anterioseptal leads 3- Hyperlpipidemia , LDL of 165. - per [place] calculator , her 10 yr risk for CAD is 28.45 %. statins are indicated for her , cont lipitor 4- likely has CKD . need further w/u as out pt . cr has remained stable here . advised to avoid NSAIDs DC home
--- NOTE | 2017-06-17 21:24 | DS ---
Physical Exam: SUBJECTIVE: Patient seen and examined this AM. No complaints. No more headache. No CP, no SOB, no fevers, no chills OBJECTIVE: Vital Signs Period Temp Pulse Resp BP Sys/Garcia Pulse Ox Last 24 Hr 98.6 F 96 18 145/84 98 PHYSICAL EXAM GENERAL: Awake, alert, and fully oriented, in no acute distress. HEAD: Normal with no signs of trauma, No tenderness to palpations over temples, frontal, or maxillary sinuses EYES: PERRLA, EOMI, sclera anicteric, conjunctiva clear EARS, NOSE, THROAT: Oropharynx clear without exudates. Moist mucous membranes. NECK: Supple, no cervical LAD LUNGS: CTAB, no wheezes, and no crackles. No accessory muscle use. HEART: RRR, normal S1/S2, no murmur, rub or gallop. ABDOMEN: Obese, soft, NTND, normoactive bowel sounds LOWER EXTREMITIES: 2+ pulses, warm, well-perfused. No calf tenderness. No peripheral edema. NEUROLOGICAL: No facial droop, sensation intact to face and body bilaterally, MSk 5/5 in all extremities, reflexes 2+, cranial nerves intact LABS Laboratory Results - last 24 hr 06/17/17 06:00 Sodium 141 Potassium 4.6 Chloride 106 Carbon Dioxide 27 Anion Gap 8 BUN 20 H Creatinine 1.1 H Random Glucose 104 Calcium 10.0 HOSPITAL COURSE: Date of Admission:06/15/17 Date of Discharge: 06/17/17 Ms. Sergio Gonzales is a 52yo female with a past medical history of HTN, and HLD who presented to the ER with a blood pressure of 202/112, non- radiating temporal headaches, and elevated troponins. She was admitted for hypertensive emergency # Hypertensive emergency - In the ED, she was given labetelol 20 mg IV push and Clonidine 0.2 mg PO once , and her blood pressure eventually came down to 123/79. Her blood pressure was continued to be monitored. She was initially treated with Losartan 25mg QD, but was later switched to her home dose of Losartan 100mg QD + Triamterene/HCTZ 25/37.5 PO QD. Her blood pressure has been controlled during the hospitalization , and on discharge it was 145/84. She was discharged on her home meds. # Increased troponins - Initial troponins were 0.12, most likely due to demand ischemia from the hypertensive crisis. She was given a loading dose of aspirin 325 mg PO and continued on 81 mg PO QD. Troponins trended down to 0.11. Echo was WNL. Stress test was ordered and showed no perfusion defects. # Temporal headaches - Head CT in the ER showed no acute pathology. These temporal headaches were likely due to her hypertensive emergency, and resolved with BP control. The patient never complained of visual symptoms or 10/10 pain. # Hyperlipidemia - Patient has a total cholesterol of 238, LDL is 162. She is nondiabetic, but her [place] score 10 was calculated and suggests to start her on a statin. 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 She will need to follow with Nephrology as an outpatient The hospital course was discussed with the patient who agrees with the plan Minutes to complete discharge: 45 Discharge Summary Reason For Visit: HYPERTENSIVE EMERGENCY Current Active Problems Elevated troponin (Acute) Headache (Acute) Hypertensive emergency (Acute) Hyperlipidemia (Chronic) Condition: Improved - Instructions Diet, Activity, Other Instructions: You were admitted because your blood pressure was very high. You started having headaches and your heart was working hard so it leaked enzymes out into the blood called Troponins. We controlled your blood pressure with some medications and your blood pressure came down. We are putting you back on your home blood pressure medications. We also noticed you had a high cholesterol and started you on a medication for high cholesterol, and a medication to help your heart. You had a stress test in the hospital which revealed no blockage We started you on the following new medications: Atorvastatin 40mg 1 tablet at night for cholesterol Please follow up with your Primary Care Doctor Dr. Torres in 1 week. 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 Bourne in 2 weeks. Please also followup with Dr. Waddell for workup of your kidneys. Please monitor your blood pressure regularly. Please avoid medications that cause your blood pressure to go high. Please follow a strict diet and exercise regimen.Please do not take Advil, Motrin, Ibuprofen, or Diclofenac to protect your kidneys If you have any serious symptoms please return to the ER Referrals: Dayne Bourne MD [Staff Physician] - 2 Weeks Michelle Torres MD [Non Staff, Medical] - 1 Week Iván Waddell MD [Staff Physician] - 1 Week Disposition: HOME - Home Medications Comprehensive Discharge Medication List: Ambulatory Orders Losartan Potassium 100 mg PO DAILY 06/15/17 Triamterene/Hydrochlorothiazid [Triamterene-Hctz 37.5-25 mg Cp] 1 each PO DAILY 06/16/17 Atorvastatin Ca [Lipitor] 40 mg PO HS #30 tablet 06/17/17 This patient is new to me today: No Emergency Visit: No Critical Care patient: No - Discharge Referral Referred to [facility] Med [facility].C[facility] No
[2017-06-17] MEDS ORDERED: ATORVASTATIN CA 40 MG TABLET (FP) PO SCH (22:00)
[2017-06-17] MEDS ORDERED: ATORVASTATIN CA 20 MG TABLET (FP) PO SCH (22:00)
== END 2017-06-17 15:41 | disposition home or self-care (01) | DRG 305 ==
LOC: JER 15:49 → JERBED 18:57 → J4W 22:36 → OBSVTOIN 06-17 11:27
PROVIDERS: ADMIT Internal Medicine; ATTEND Internal Medicine
DX: I16.1 Hypertensive emergency (principal); N17.9 Acute kidney failure, unspecified; E78.5 Hyperlipidemia, unspecified; E66.8 Other obesity; Z68.38 Body mass index [BMI] 38.0-38.9, adult; G47.30 Sleep apnea, unspecified; R74.8 Abnormal levels of other serum enzymes; E83.52 Hypercalcemia; R51 Headache; I12.9 Hypertensive chronic kidney disease with stage 1 through stage 4 chronic kidney disease, or unspecified chronic kidney disease; N18.9 Chronic kidney disease, unspecified; R07.89 Other chest pain
CPT/HCPCS: 36415; 70450-TC; 71010-TC; 78452-TC; 80048; 80053; 80061; 81003; 82550; 82553; 83721; 83735; 83880; 84443; 84484; 85025; 85027; 93005; 93010; 93017; 93306-TC; 99284-25; A9502; G0378; J1644

== ENCOUNTER 2018-11-18 10:23 | Emergency (ER) | payer OTHER ==
[2018-11-18 10:33] VITALS: TEMP 98.4; BMI 40.3
--- NOTE | 2018-11-18 10:51 | CON.CARD ---
Consult Consult Specialty:: cardiology Reason for Consultation:: chest pain; HTN - History of Present Illness History of Present Illness: 49-year-old black female presents the ED with complaints of gradually worsening left scapular pain that began last evening and exacerbated upon awakening this morning. Patient states when she had stepped onto the bus to go to work she had felt headache, and worsening left scapular pain that radiates to her left shoulder down her left arm causing numbness and tingling. Patient states at work took an Excedrin and the tingling/numbness discontinued. although patient states pain has also subsided slightly she is concerned with the location of pain being over her left substernal area. Patient denies smoking history, drug use, recent travel, estrogen use, history of blood in disorders, or recent surgeries. Patient states history of controlled hypertension and dyslipidemia. patient denies recent injury, recent change in sleep position, or recent change in activity. Patient does state history of dislocated left shoulder in the past but denies nerve damage or pain since. Of note, pt was admitted in 2017 with headache. Stress MIBI done at that time ( 05/2017) showed no myocardial ischemia. 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)) Cardio/Vascular: Yes: HTN, Hyperlipdemia, Other (obesity) ...LMP: 07/07/15 - Alcohol/Substance Use Hx Alcohol Use: Yes - Smoking History Smoking history: Never smoked Have you smoked in the past 12 months: No Aproximately how many cigarettes per day: 0 Home Medications - Allergies Allergies/Adverse Reactions: Allergies Allergy/AdvReac Type Severity Reaction Status Date / Time No Known Allergies Allergy Verified 11/18/18 10:29 - Home Medications Home Medications: Ambulatory Orders Losartan Potassium 100 mg PO DAILY 06/15/17 Triamterene/Hydrochlorothiazid [Triamterene-Hctz 37.5-25 mg Cp] 1 each PO DAILY 06/16/17 Atorvastatin Ca [Lipitor] 40 mg PO HS #30 tablet 06/17/17 Atorvastatin Ca [Lipitor] 40 mg PO HS #30 tablet 11/18/18 Family Disease History - Family Disease History Family History: Denies Review of Systems - Review of Systems Constitutional: reports: No Symptoms Eyes: reports: No Symptoms HENT: reports: Other (headache) Neck: reports: No Symptoms Cardiovascular: reports: Chest Pain (the pain is reproduced on palpation of left sternal border or moving left arm above head) Respiratory: reports: No Symptoms Gastrointestinal: reports: No Symptoms Genitourinary: reports: No Symptoms Breasts: reports: No Symptoms Reported - Risk Factors Known Risk Factors: Yes: Diabetes Mellitus, Hypercholesterolemia, Hypertension, Physical Inactivity, Race Vital Signs: Vital Signs Temperature 98.4 F 11/18/18 10:32 Pulse Rate 95 H 11/18/18 10:32 Respiratory Rate 18 11/18/18 10:32 Blood Pressure 178/96 H 11/18/18 10:32 O2 Sat by Pulse Oximetry (%) 99 11/18/18 10:32 Constitutional: Yes: Anxious Eyes: Yes: WNL HENT: Yes: WNL Neck: Yes: WNL Respiratory: Yes: WNL Gastrointestinal: Yes: Soft, Abdomen, Obese Renal/: No: Anuria Heart Sounds: Yes: S1, S2, S4 Murmur: Yes: Systolic Murmur, Grade 1 Musculoskeletal: Yes: WNL Extremities: Yes: WNL Edema: No Peripheral Pulses WNL: Yes Integumentary: Yes: WNL Neurological: Yes: WNL Psychiatric: Yes: Other (anxiety) - Other Data Echo: Report Reviewed (normal LVEF; mild TR and MR) Ejection Fraction %: LVEF > or = 40 % Imaging - Results Cat Scan: Report Reviewed (Head CT: no acute pathology) EKG: Image Reviewed (NSR; ? old anterior wall ND) Problem List - Problems (1) Headache Assessment/Plan: Chronic headahces pt attributes to "emotional upset". Consider w/u with neurologist. CT head: no pathology Code(s): R51 - HEADACHE (2) Hyperlipidemia Assessment/Plan: elevated LDL cholesterol. Start statin; exercise, diet change, weight loss encouraged. Code(s): E78.5 - HYPERLIPIDEMIA, UNSPECIFIED (3) Sleep apnea Assessment/Plan: pt has risks for this; f/u with sleep studies, if not done already. Code(s): G47.30 - SLEEP APNEA, UNSPECIFIED (4) EKG abnormality Assessment/Plan: EKG today: NSR; ? anterior wall ND. Pt has large breasts; this may have affected ability to place precordial leads correctly. F/u ECHO for LVEF, with attention to anterior wall motion. TNI < 0.02; f/u serially. Stess MIBI 05/2017: no myhocardial ischemia. Code(s): R94.31 - ABNORMAL ELECTROCARDIOGRAM [ECG] [EKG] (5) Costochondral chest pain Assessment/Plan: Pt says she has been "moving things around", doing some heavy lifting; palpation of left sternal wall reproduces the chest pian TNI < 0.10 (essentially unchanged from 05/2018); f/u serially.HTN, CHF may be contributing to TNI elevation. EKG (Cannot r/o anterior wall ND) repeat with attention to precordial lead placement (though large breasts make proper placement difficult). ECHO for LVEF, attention to anterior wall motion. Stress MIBI 06/17/2017: no myocardial ischemia. Analgesics (avoid long-term non-aspirin NSAIDs, if possible). Unless significant abnormalities are noted, pt may be followed up as outpatient from cardiac standpoint. Code(s): R07.1 - CHEST PAIN ON BREATHING (6) Diabetes Assessment/Plan: Pt denies personal or family hx of diabetes. However, blood glucose [id number]; HGBA1c wa ordered, and it is also high (7.4). The need to f/u this condition was emphasized; weight loss with diet modification, and increase in exercise were discussed in detail. Code(s): E11.9 - TYPE 2 DIABETES MELLITUS WITHOUT COMPLICATIONS
--- NOTE | 2018-11-18 11:11 | PDOC ---
Attending Attestation - HPI HPI: The patient is a 53 year old female, with a significant past medical history of HTN, who presents to the emergency department with headache and blurry vision since last night. Patient states that last night he developed a headache and b/ l blurry vision. This morning he states that he woke up with a headache , blurry vision. He notes that after getting up and moving around he developed upper left-sided chest pain. He describes the chest pain as if he got punched in the chest, pressure-like, does not radiate. Patient states that he gets stressed often and has these headaches w/ associated blurry vision approx. 2x/ month. He states that today however, the headache is worse than it's ever been. Patient see Dr. Sommers for his heart and had a stress echo 1 year ago that was negative. PCP: Michelle Torres Research Librarian: Aries Sommers - Physicial Exam PE: Vitals: Triage vital signs reviewed General Appearance: No acute distress, well nourished, well developed Head: Atraumatic Chest Wall: Nontender Cardiac: Regular rate and rhythm, no murmurs, no rubs, no gallops Lungs: Clear to auscultation bilateral, good air movement bilaterally Abdomen: Soft, nondistended, normal bowel sounds, nontender to palpation Extremities: Full range of motion to all extremities, no cyanosis, clubbing, or edema Skin: Warm and dry, no rashes or lesions, no rash, no petechiae Psych: Normal mood, normal affect 11/18/18 14:10 - Medical Decision Making Paged Dr. Sommers 2:10 pm 11/18/18 14:10 <Alannah Royal - Last Filed: 11/18/18 14:09> - Resident Resident Name: Bebo Timmons - ED Attending Attestation I have performed the following: I have examined & evaluated the patient, The case was reviewed & discussed with the resident, I agree w/resident's findings & plan, Exceptions are as noted - HPI HPI: 53 years old past medical history significant for hypertension presents to the ED with headache blurry vision and some mild chest discomfort She has frequent history of similar headaches this one appears to be somewhat worse than her others In the emergency department she received IV fluids and Reglan for her headache a head CT was performed which demonstrated no acute pathology. Her blood pressure has improved she was seen and evaluated by cardiology who requested an echo which was performed reviewed and demonstrated no acute abnormalities Was recommended she be started on a statin which was ordered for the patient she 'll follow-up with cardiology within the month she will return to ED for any severe worsening symptoms or for any concerns. Findings, the need for follow-up and strict return instructions discussed with patient. <Yoel Souza - Last Filed: 11/18/18 14:50> Heart Score/ECG Review - ECG Impressions Comment:: 11/18/18 14:48 EKG performed at 1034 demonstrates normal sinus rhythm no ST elevations noted T- wave inversions Interpreted by me <Yoel Souza - Last Filed: 11/18/18 14:50>
--- NOTE | 2018-11-18 11:30 | PDOC ---
History of Present Illness - General Stated Complaint: CHEST PAIN Time Seen by Provider: 11/18/18 10:40 History Source: Patient Exam Limitations: No Limitations - History of Present Illness Initial Comments: 11/18/18 11:54 53 yo female pmh HTN and HLD presents to the ED with GARCIA, blurry vision, CP and elevated BP for 1 day. Pt states she gets GARCIA when she is stressed out but the GARCIA today was more intense during this episode than in the past. Past History - Past Medical History Allergies/Adverse Reactions: Allergies Allergy/AdvReac Type Severity Reaction Status Date / Time No Known Allergies Allergy Verified 11/18/18 10:29 Home Medications: Ambulatory Orders Losartan Potassium 100 mg PO DAILY 06/15/17 Triamterene/Hydrochlorothiazid [Triamterene-Hctz 37.5-25 mg Cp] 1 each PO DAILY 06/16/17 Atorvastatin Ca [Lipitor] 40 mg PO HS #30 tablet 06/17/17 COPD: No HTN: Yes Hypercholesterolemia: Yes - Surgical History Abdominal Surgery: Yes (FIBROIDS) - Reproductive History (#): 5 Para: 2 Therapeutic (s) & number: Yes (3) Tubal Ligation: Yes - Suicide/Smoking/Psychosocial Hx Smoking Status: No Smoking History: Never smoked Have you smoked in the past 12 months: No Number of Cigarettes Smoked Daily: 0 Hx Alcohol Use: Yes Drug/Substance Use Hx: No Substance Use Type: Alcohol Hx Substance Use Treatment: No *Physical Exam - Vital Signs Last Vital Signs Temp Pulse Resp BP Pulse Ox 98.4 F 95 H 18 178/96 H 99 11/18/18 10:32 11/18/18 10:32 11/18/18 10:32 11/18/18 10:32 11/18/18 10:32 Moderate Sedation - Procedure Monitoring Vital Signs: Procedure Monitoring Vital Signs Temperature 98.4 F 11/18/18 10:32 Pulse Rate 95 H 11/18/18 10:32 Respiratory Rate 18 11/18/18 10:32 Blood Pressure 178/96 H 11/18/18 10:32 O2 Sat by Pulse Oximetry (%) 99 11/18/18 10:32 ED Treatment Course - LABORATORY CBC & Chemistry Diagram: 11/18/18 11:40 11/18/18 11:40 - RADIOLOGY Radiology Studies Ordered: Category Date Time Status CHEST PA & LAT [RAD] Stat Radiology 11/18/18 10:50 Ordered Medical Decision Making - Medical Decision Making 11/18/18 11:17 Dr. 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 States he would like a second EKG done with attention to V1, V2 and V3 and also an echo *DC/Admit/Observation/Transfer Diagnosis at time of Disposition: Chest pain Qualifiers: Chest pain type: unspecified Qualified Code(s): R07.9 - Chest pain, unspecified - Discharge Dispostion Disposition: HOME Condition at time of disposition: Stable Decision to Admit order: No - Referrals Referrals: Michelle Torres MD [Primary Care Provider] - Aries Sommers MD [Staff Physician] - - Patient Instructions Printed Discharge Instructions: DI for Chest Pain Additional Instructions: Please make an appointment with Your Bridge Repairer between 30-60 days from now. Continue taking your home dosed medications and include 40 mg of Lipitor every day for your elevated cholesterol. Return to the Emergency Room for new or concerning symptoms including but not limited to: worsening chest pain or headaches, changes in vision or speech, weakness or numbness on 1 side of your body, fatigue or confusion. Thank you - Post Discharge Activity
[2018-11-18 11:48] LABS: BASO % 0.4 % (0-2.0); EOS % 1.9 % (0-4.5); HEMOGLOBIN 13.5 GM/dL (10.7-15.3); LYMPH % 30.4 % (8-40); MCH 29.9 pg (25.7-33.7); MCHC 34.5 g/dl (32.0-36.0); MEAN CELL VOLUME 86.7 fl (80-96); MEAN PLT VOLUME 9.3 fl (7.5-11.1); MONO % 8.2 % (3.8-10.2); NEUT % 59.1 % (42.8-82.8); PLATELET COUNT 298 K/MM3 (134-434); RDW 15.1 % (11.6-15.6); WHITE BLOOD COUNT 7.4 K/mm3 (4.0-10.0)
[2018-11-18 12:14] VITALS: BP 150/92; PULSE 84
[2018-11-18 12:26] LABS: ALK PHOS 105 U/L (45-117); ANION GAP 9 MMOL/L (8-16); BILIRUBIN,TOTAL 0.3 mg/dL (0.2-1); BLOOD UREA NITROGEN 16 mg/dL (7-18); CALCIUM 9.8 mg/dL (8.5-10.1); CHLORIDE 105 mmol/L (98-107); CO2 26 mmol/L (21-32); CREATININE 1.1 mg/dL (0.55-1.3); GLUCOSE,RANDOM 96 mg/dL (74-106); POTASSIUM 4.1 mmol/L (3.5-5.1); SGOT/AST 21 U/L (15-37); SGPT/ALT 33 U/L (13-61); SODIUM 140 mmol/L (136-145); TOT PROT 7.8 g/dl (6.4-8.2)
--- NOTE | 2018-11-18 12:43 | ECHO ---
Name: REJI MCCLURE Exam:Adult Echocardiogram Study Date: 11/18/2018 11:36 AM Age: 53 yrs Height: 66 in Weight: 250 lb BSA: 2.2 m2 MMode/2D Measurements & Calculations IVSd: 1.0 cm Ao root diam: 2.4 cm LVIDd: 3.8 cm LA dimension: 3.0 cm LVIDs: 2.2 cm LVPWd: 0.79 cm EDV(Teich): 60.8 ml LVOT diam: 1.9 cm ESV(Teich): 16.4 ml TAPSE: 2.5 cm RV S Jourdan: 9.3 cm/sec Doppler Measurements & Calculations MV E max jourdan: 74.5 cm/sec Med Peak E' Jourdan: 6.9 cm/sec MV A max jourdan: 81.4 cm/sec Med E/e': 10.8 MV E/A: 0.92 Lat Peak E' Jourdan: 9.1 cm/sec MV dec time: 0.27 sec Lat E/e': 8.2 Left Ventricle The left ventricular size, thickness and function are normal. Ejection Fraction = 55-60%. Right Ventricle The right ventricle is normal in size and function. Atria Normal left and right atrial size and function. Mitral Valve The mitral valve is normal in structure and function. There is no mitral valve stenosis. There is mil d mitral regurgitation. Tricuspid Valve The tricuspid valve is normal in structure and function. There is mild tricuspid regurgitation. Aortic Valve The aortic valve opens well. No hemodynamically significant valvular aortic stenosis. No aortic regur gitation is present. Pulmonic Valve The pulmonic valve is not well seen, but is grossly normal. There is no pulmonic valvular stenosis. T here is no pulmonic valvular regurgitation. Great Vessels The aortic root is normal size. Pericardium/Pleura There is no pericardial effusion. Interpretation Summary The left ventricular size, thickness and function are normal Ejection Fraction = 55-60%. The right ventricle is normal in size and function. There is mild mitral regurgitation. There is mild tricuspid regurgitation. There is no pericardial effusion. MD Joe *Mathew 11/18/2018 12:43 PM
[2018-11-18 15:14] LABS: CHOLESTEROL 269 mg/dL (50-200); HDL CHOLESTEROL 50 mg/dL (40-60); TRIGLYCERIDES 143 mg/dL (0-150)
--- NOTE | 2018-11-18 19:11 | EKG ---
Test Reason : Blood Pressure : / mmHG Vent. Rate : 091 BPM Atrial Rate : 091 BPM P-R Int : 176 ms QRS Dur : 078 ms QT Int : 358 ms P-R-T Axes : 053 000 068 degrees QTc Int : 440 ms NORMAL SINUS RHYTHM CANNOT RULE OUT ANTERIOR INFARCT (CITED ON OR BEFORE 03-APR-2015) ABNORMAL ECG WHEN COMPARED WITH ECG OF 16-JUN-2017 01:19, QUESTIONABLE CHANGE IN INITIAL FORCES OF ANTEROSEPTAL LEADS NON-SPECIFIC CHANGE IN ST SEGMENT IN ANTERIOR LEADS Confirmed by BETH DE JESUS, AGUS ([id number]) on 11/18/2018 7:10:52 PM Referred By: Confirmed By:AGUS CAMPOS MD
--- NOTE | 2018-11-21 16:30 | EKG ---
Test Reason : Blood Pressure : / mmHG Vent. Rate : 072 BPM Atrial Rate : 072 BPM P-R Int : 178 ms QRS Dur : 074 ms QT Int : 376 ms P-R-T Axes : 049 004 062 degrees QTc Int : 411 ms NORMAL SINUS RHYTHM ANTEROSEPTAL INFARCT (CITED ON OR BEFORE 03-APR-2015) T WAVE ABNORMALITY, CONSIDER LATERAL ISCHEMIA ABNORMAL ECG WHEN COMPARED WITH ECG OF 18-NOV-2018 10:34, T WAVE VARIATION Confirmed by PAO NARANJO MD ([id number]) on 11/21/2018 4:30:05 PM Referred By: Confirmed By:PAO NARANJO MD
== END 2018-11-18 14:59 | disposition home or self-care (01) ==
LOC: JER 10:23
DX: R07.9 Chest pain, unspecified (principal); R51 Headache; E78.5 Hyperlipidemia, unspecified; G47.30 Sleep apnea, unspecified; E11.9 Type 2 diabetes mellitus without complications; R94.31 Abnormal electrocardiogram [ECG] [EKG]; M94.0 Chondrocostal junction syndrome [Tietze]; R07.1 Chest pain on breathing
CPT/HCPCS: 36415; 70450-TC; 80053; 80061; 82550; 82553; 83036; 83721; 84484; 85025; 93005; 93010; 93306-TC; 99284-25

== ENCOUNTER 2019-01-24 17:04 | Emergency (ER) | payer OTHER ==
[2019-01-24 17:17] VITALS: BP 150/109; PULSE 94; TEMP 98.1; BMI 35.2
--- NOTE | 2019-01-24 17:20 | PDOC ---
Rapid Medical Evaluation Chief Complaint: Injury Time Seen by Provider: 01/24/19 17:14 Medical Evaluation: Allergies Allergy/AdvReac Type Severity Reaction Status Date / Time No Known Allergies Allergy Verified 11/18/18 10:29 01/24/19 17:16 I have performed a brief in-person evaluation of this patient. The patient presents with a chief complaint of: Left ankle pain s/p twisting ankle at work today. Denies hitting head Pertinent physical exam findings:mild swelling to lateral side of LT ankle I have ordered the following: LT ankle x-ray The patient will proceed to the ED for further evaluation Discharge Disposition - Diagnosis Left ankle injury Qualifiers: Encounter type: initial encounter Qualified Code(s): S99.912A - Unspecified injury of left ankle, initial encounter - Discharge Dispostion Condition at time of disposition: Stable - Referrals - Patient Instructions - Post Discharge Activity
--- NOTE | 2019-01-24 17:54 | PDOC ---
History of Present Illness - General Chief Complaint: Injury Stated Complaint: FALL/LFT ANKLE PAIN Time Seen by Provider: 01/24/19 17:14 - History of Present Illness Initial Comments: 01/24/19 17:52 53-year-old female presents for evaluation of left ankle pain after an inversion -type injury. This occurred earlier today while at work. No head injury. Past medical history significant for hypertension and dyslipidemia. Past History - Past Medical History Allergies/Adverse Reactions: Allergies Allergy/AdvReac Type Severity Reaction Status Date / Time No Known Allergies Allergy Verified 01/24/19 17:17 Home Medications: Ambulatory Orders Losartan Potassium 100 mg PO DAILY 06/15/17 Triamterene/Hydrochlorothiazid [Triamterene-Hctz 37.5-25 mg Cp] 1 each PO DAILY 06/16/17 Atorvastatin Ca [Lipitor] 40 mg PO HS #30 tablet 11/18/18 COPD: No HTN: Yes Hypercholesterolemia: Yes - Surgical History Abdominal Surgery: Yes (FIBROIDS) - Reproductive History (#): 5 Para: 2 Therapeutic (s) & number: Yes (3) Tubal Ligation: Yes - Suicide/Smoking/Psychosocial Hx Smoking Status: No Smoking History: Never smoked Have you smoked in the past 12 months: No Number of Cigarettes Smoked Daily: 0 Hx Alcohol Use: Yes Drug/Substance Use Hx: No Substance Use Type: Alcohol Hx Substance Use Treatment: No Review of Systems - Review of Systems Musculoskeletal: Yes: Joint Pain *Physical Exam - Vital Signs Last Vital Signs Temp Pulse Resp BP Pulse Ox 98.1 F 94 H 18 150/109 H 97 01/24/19 17:14 01/24/19 17:14 01/24/19 17:14 01/24/19 17:14 01/24/19 17:14 - Physical Exam Comments: 01/24/19 17:52 Left ankle skin color and temperature are normal. Range of motion is limited. Swelling about the lateral aspect of the left ankle. No tenderness about the knee proximal fibula or along its distal coarse. Mild tenderness over the lateral malleolus. No tenderness over the medial malleolus base of the fifth metatarsal or navicular. Moderate tenderness over the ATFL. No instability or gross sensorimotor deficits. She is neurovascularly intact. Moderate Sedation - Procedure Monitoring Vital Signs: Procedure Monitoring Vital Signs Temperature 98.1 F 01/24/19 17:14 Pulse Rate 94 H 01/24/19 17:14 Respiratory Rate 18 01/24/19 17:14 Blood Pressure 150/109 H 01/24/19 17:14 O2 Sat by Pulse Oximetry (%) 97 01/24/19 17:14 Medical Decision Making - Medical Decision Making 01/24/19 17:51 X-rays of the left ankle show no evidence of fracture trauma or destructive process. Left ankle sprain weight-bear as tolerated with crutches and Aircast follow-up with orthopedic *DC/Admit/Observation/Transfer Diagnosis at time of Disposition: Ankle sprain Left ankle injury Qualifiers: Encounter type: initial encounter Qualified Code(s): S99.912A - Unspecified injury of left ankle, initial encounter - Discharge Dispostion Disposition: HOME Condition at time of disposition: Stable Decision to Admit order: No - Referrals Referrals: Bonifacio Robertson DO [Staff Physician] - - Patient Instructions Printed Discharge Instructions: DI for Ankle Sprain, Ankle Sprain Additional Instructions: Return to the emergency room should symptoms worsen or go unresolved. He may weight-bear as tolerated with the use of crutches and the Aircast. Follow-up with orthopedic surgery in 1-2 days for further evaluation and treatment options. Tylenol as directed for pain. - Post Discharge Activity
[2019-01-24] MEDS ORDERED: ACETAMINOPHEN 500 MG TABLET (FP) PO ONE (18:07)
[2019-01-24] MEDS ORDERED: ACETAMINOPHEN 500 MG TABLET (FP) ONE (18:10)
== END 2019-01-24 18:20 | disposition home or self-care (01) ==
LOC: JERFT 17:04
PROC: 2W3RX1Z Immobilization of Left Lower Leg using Splint (ICD-10-PCS; principal; 2019-01-24)
DX: S93.402A Sprain of unspecified ligament of left ankle, initial encounter (principal); X50.1XXA Overexertion from prolonged static or awkward postures, initial encounter; Y93.89 Activity, other specified; Y92.69 Other specified industrial and construction area as the place of occurrence of the external cause; Y99.0 Civilian activity done for income or pay; I10 Essential (primary) hypertension; E78.00 Pure hypercholesterolemia, unspecified
CPT/HCPCS: 73610-TC-LT-FY; 73630-TC-LT; 99281-25

== ENCOUNTER 2019-08-26 06:33 | Emergency (ER) | payer OTHER ==
[2019-08-26 07:10] VITALS: BP 144/98; PULSE 88; TEMP 98.7; BMI 43.9
[2019-08-26] MEDS ORDERED: guaiFENesin/CODEINE 10 ML UNIT-DOSE CUPS PO ONE (07:25)
[2019-08-26] MEDS ORDERED: guaiFENesin/CODEINE 5 ML UNIT-DOSE CUPS PO ONE (07:33)
--- NOTE | 2019-08-26 07:37 | PDOC ---
History of Present Illness - General Chief Complaint: Sore Throat Stated Complaint: SORE THROAT, CONGESTION Time Seen by Provider: 08/26/19 07:22 History Source: Patient Exam Limitations: No Limitations - History of Present Illness Initial Comments: 08/26/19 07:32 54-year-old female with history of hypertension presents the emergency room with complaints of sore throat since Wednesday now accompanied with nasal congestion, cough and right-sided chest pain. patient went to an urgent care clinic that evening and was given Flonase along with recommendations to take lozenges with no improvement. Patient denies fever, shortness of breath, headache, or decreased appetite. Patient took her medication for hypertension prior to arrival. 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 Patient denies smoking history or secondhand smoke exposure Is this a multiple visit Asthma Patient?: No Timing/Duration: reports: other (4 days) Severity: reports: mild Possible Cause: Yes: occasional episodes Associated Symptoms: reports: chest pain/soreness, cough, nasal congestion, sore throat Past History - Travel Traveled outside of the country in the last 30 days: No Close contact w/someone who was outside of country & ill: No - Past Medical History Allergies/Adverse Reactions: Allergies Allergy/AdvReac Type Severity Reaction Status Date / Time No Known Allergies Allergy Verified 08/26/19 07:01 Home Medications: Ambulatory Orders Losartan Potassium 100 mg PO DAILY 06/15/17 Triamterene/Hydrochlorothiazid [Triamterene-Hctz 37.5-25 mg Cp] 1 each PO DAILY 06/16/17 Atorvastatin Ca [Lipitor] 40 mg PO HS #30 tablet 11/18/18 Azithromycin [Zithromax Tri-Han (3 DAYS) -] 500 mg PO DAILY #3 tablet 08/26/19 Guaifenesin AC [Robitussin AC] 10 ml PO Q8H PRN #120 ml MDD 30 08/26/19 COPD: No HTN: Yes Hypercholesterolemia: Yes - Surgical History Abdominal Surgery: Yes (FIBROIDS) - Reproductive History (#): 5 Para: 2 Therapeutic (s) & number: Yes (3) Tubal Ligation: Yes - Psycho Social/Smoking Cessation Hx Smoking Status: No Smoking History: Never smoked Have you smoked in the past 12 months: No Number of Cigarettes Smoked Daily: 0 Information on smoking cessation initiated: No Hx Alcohol Use: No Drug/Substance Use Hx: No Substance Use Type: Alcohol Hx Substance Use Treatment: No Patient Lives Alone: No Lives with/in: spouse/SO Respiratory Specific PMHX - Complaint Specific PMHX Angina: No Bronchitis: Yes Review of Systems - Review of Systems Able to Perform ROS?: Yes Constitutional: No: Symptoms Reported HEENTM: Yes: Nose Congestion, Throat Pain, Difficulty Swallowing Respiratory: Yes: Cough. No: Symptoms reported Cardiac (ROS): Yes: Chest Pain (right sided) ABD/GI: No: Symptoms Reported : No: Symptoms Reported Musculoskeletal: No: Symptoms Reported Integumentary: No: Symptoms Reported Neurological: No: Symptoms reported *Physical Exam - Vital Signs Last Vital Signs Temp Pulse Resp BP Pulse Ox 98.7 F 88 20 144/98 97 08/26/19 07:01 08/26/19 07:01 08/26/19 07:01 08/26/19 07:01 08/26/19 07:16 - Physical Exam General Appearance: Yes: Nourished, Appropriately Dressed. No: Apparent Distress HEENT: positive: LINDEN, TMs Normal, Pharynx Normal (min erythema to soft palate) , Nasal Congestion. negative: Normal Voice (nasal), Pale Conjunctivae Neck: positive: Supple Respiratory/Chest: positive: Chest Tender (rt upper ant chest), Lungs Clear, Normal Breath Sounds. negative: Respiratory Distress, Accessory Muscle Use Cardiovascular: positive: Regular Rhythm, Regular Rate. negative: Murmur Extremity: positive: Normal Inspection Integumentary: positive: Normal Color, Warm, Moist Neurologic: positive: Motor Strength 5/5 (ambulatory) Medical Decision Making - Medical Decision Making 08/26/19 07:45 Chief complaint: URI symptoms on relief with Flonase and [id number] septal call patient with history of hypertension Exam patient with noted dry hacking cough during my exam vital signs stable positive nasal congestion lungs clear plan: Robitussin-AC x1 here discharged home with the same along with azithromycin for treatment of bronchitis Discharge - Discharge Information Problems reviewed: Yes Clinical Impression/Diagnosis: Bronchitis, Cough Condition: Good Disposition: HOME - Admission No - Additional Discharge Information Prescriptions: Azithromycin [Zithromax Tri-Han (3 DAYS) -] 500 mg PO DAILY #3 tablet Guaifenesin AC [Robitussin AC] 10 ml PO Q8H PRN #120 ml MDD 30 PRN Reason: Cough Prescription Drug Monitoring Program (I-STOP) results: I-STOP not reviewed - Follow up/Referral Referrals: Michelle Torres MD [Primary Care Provider] - - Patient Discharge Instructions Patient Printed Discharge Instructions: DI for Acute Bronchitis Additional Instructions: May take Robitussin as needed for cough but do not operate any heavy machinery including a vehicle while taking this medication. Continue take your blood pressure medication as scheduled. Continue to use Flonase for nasal congestion. Take azithromycin as prescribed until completed. Eat soft nonabrasive foods drinking warm fluids. Stay well-hydrated - Post Discharge Activity
== END 2019-08-26 07:45 | disposition home or self-care (01) ==
LOC: JER 06:33
DX: J40 Bronchitis, not specified as acute or chronic (principal)
CPT/HCPCS: 99282-25

== ENCOUNTER 2020-01-20 11:07 | Emergency (ER) | payer OTHER ==
[2020-01-20 11:25] VITALS: BP 174/95; PULSE 94; TEMP 98.6; BMI 39.0
[2020-01-20] MEDS ORDERED: KETOROLAC TROMETHAMINE 30 MG/1 ML VIAL IM ONE (12:49)
[2020-01-20] MEDS ORDERED: KETOROLAC TROMETHAMINE 30 MG/1 ML VIAL ONE (12:53)
--- NOTE | 2020-01-20 12:56 | PDOC ---
History of Present Illness - General Chief Complaint: Pain Stated Complaint: PAIN Time Seen by Provider: 01/20/20 12:12 History Source: Patient Exam Limitations: No Limitations - History of Present Illness Initial Comments: 01/20/20 12:51 HISTORY OF PRESENT ILLNESS: 54-year-old woman who presents emergency department for evaluation of left shoulder and elbow pain worsening over the past 3 weeks. Patient was concerned that she has some swelling to her left arm now. She denies any trauma. 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 She denies any extracurricular hobbies. She denies oral contraceptive use. No recent travel or sick contacts. PAST MEDICAL HISTORY: htn SURGICAL HISTORY: Denies ALLERGIES: No known drug allergies REVIEW OF SYSTEMS General/Constitutional: Denies fever or chills. Denies weakness, weight change. HEENT: Denies change in vision. Denies ear pain or discharge. Denies sore throat. Cardiovascular: Denies chest pain or shortness of breath. Respiratory: Denies cough, wheezing, or hemoptysis. Gastrointestinal: Denies nausea, vomiting, diarrhea or constipation. Denies rectal bleeding. Genitourinary: Denies dysuria, frequency, or change in urination. Musculoskeletal: See HPI Skin and breasts: Denies rash or easy bruising. Neurologic: Denies headache, vertigo, loss of consciousness, or loss of sensation. Psychiatric: Denies depression or anxiety. Endocrine: Denies increased thirst. Denies abnormal weight change. Hematologic/Lymphatic: Denies anemia, easy bleeding, or history of blood clots. Allergic/Immunologic: Denies hives or skin allergy. Denies latex allergy. PHYSICAL EXAM General Appearance: Well-appearing, appropriately dressed. No apparent distress , no intoxication. Neck: Supple. Trachea midline. No tenderness, rigidity, carotid bruit, stridor , lymphadenopathy, or thyromegaly. Respiratory/Chest: Lungs CTAB. No shortness of breath, chest tenderness, respiratory distress, accessory muscle use. No crackles, rales, rhonchi, stridor , wheezing, dullness Cardiovascular: RRR. S1, S2. No JVD, murmur, bradycardia, tachycardia. Vascular Pulses: Radial (R): 2+, radial (L): 2+ Musculoskeletal/Extremities: Normal capillary refill. No CVA tenderness. Left elbow tender over the lateral epicondyle. No deformity, crepitus or step- off is present. Full active range of motion with flexion and extension left elbow and circum-rotation of the left forearm noted. No erythema present. Full range of motion noted to the left shoulder. Moderate tenderness to palpation over the anterior left shoulder which worsens with abduction. Full sensation noted to left upper extremity. Integumentary: Appropriate color, dry, warm. No cyanosis, erythema, jaundice or rash Past History - Past Medical History Allergies/Adverse Reactions: Allergies Allergy/AdvReac Type Severity Reaction Status Date / Time No Known Allergies Allergy Verified 01/20/20 11:14 Home Medications: Ambulatory Orders Losartan Potassium 100 mg PO DAILY 06/15/17 Triamterene/Hydrochlorothiazid [Triamterene-Hctz 37.5-25 mg Cp] 1 each PO DAILY 06/16/17 Atorvastatin Ca [Lipitor] 40 mg PO HS #30 tablet 11/18/18 Azithromycin [Zithromax Tri-Han (3 DAYS) -] 500 mg PO DAILY #3 tablet 08/26/19 Guaifenesin AC [Robitussin AC] 10 ml PO Q8H PRN #120 ml MDD 30 08/26/19 COPD: No HTN: Yes Hypercholesterolemia: Yes - Surgical History Abdominal Surgery: Yes (FIBROIDS) - Reproductive History (#): 5 Para: 2 Therapeutic (s) & number: Yes (3) Tubal Ligation: Yes - Psycho Social/Smoking Cessation Hx Smoking Status: No Smoking History: Never smoked Have you smoked in the past 12 months: No Number of Cigarettes Smoked Daily: 0 Information on smoking cessation initiated: No Hx Alcohol Use: No Drug/Substance Use Hx: No Substance Use Type: Alcohol Hx Substance Use Treatment: No *Physical Exam - Vital Signs Last Vital Signs Temp Pulse Resp BP Pulse Ox 98.6 F 94 H 16 174/95 H 100 01/20/20 11:16 01/20/20 11:16 01/20/20 11:16 01/20/20 11:16 01/20/20 11:16 ED Treatment Course - RADIOLOGY Radiology Studies Ordered: Category Date Time Status ELBOW-LEFT [RAD] Stat Radiology 01/20/20 12:49 Ordered SHOULDER-LEFT [RAD] Stat Radiology 01/20/20 12:49 Ordered DUPLEX VASCUL US-1 ARM [US] Stat Ultrasound 01/20/20 12:49 Ordered Medical Decision Making - Medical Decision Making 01/20/20 12:55 A/P: 54-year-old woman with left shoulder and left elbow pain worsening over the past 3 weeks Swelling presents to left forearm extending to the left fingers Tenderness to palpation over the left lateral epicondyle Left shoulder tenderness in the anterior capsule which worsens with range of motion Full range of motion of the left upper extremity noted X-rays of left shoulder and left elbow Duplex Doppler of the left upper extremity Toradol 30 mg IM now Reassess 01/20/20 14:17 X-rays of the left shoulder as read by Dr. Gar: No acute left shoulder pathology. X-rays of the left elbow as read by Dr. Gar: No acute left elbow pathology. Patient reports improvement in pain after receiving Toradol. Ultrasound is pending 01/20/20 15:20 Left upper extremity ultrasound is read by Dr. Saunders: No evidence of left upper extremity DVT. Tylenol 1 g orally now Discharge home to follow-up with her primary doctor. I discussed the physical exam findings, ancillary test results and final diagnoses with the patient. I answered all of the patient's questions. The patient was satisfied with the care received and felt comfortable with the discharge plan and treatment plan. The patient will call their primary care physician within 24 hours to arrange follow-up and will return to the Emergency Department with any new, persistent or worsening symptoms. Portions of this note have been documented using voice recognition software. As a result, errors may occur in the superintendent overhead distribution process. Effort has been made to correct all grammatical and superintendent overhead distribution error, but some may have been missed which may produce sporadic inaccurate superintendent overhead distribution or nonsensical phrases. Discharge - Discharge Information Problems reviewed: Yes Clinical Impression/Diagnosis: Left anterior shoulder pain, Epicondylitis, lateral, left Condition: Stable Disposition: HOME - Admission No - Follow up/Referral Referrals: Michelle Torres MD [Primary Care Provider] - Bonifacio Robertson DO [Staff Physician] - - Patient Discharge Instructions Additional Instructions: You be given a referral for an orthopedist. Call to schedule appointment for reevaluation of your pain. Your emergency department visit is incomplete until you follow-up with your regular doctor. Take Tylenol 2-500 mg tablets every 6 hours as needed for pain. Take Motrin 3-200 mg tablets every 6 hours as needed for pain. These medications do not require a prescription as they are [id number]. Apply ice to affected areas to help relieve pain. Do not leave ice on for more than 20 minutes at a time. Return to the emergency department for any new or worsening symptoms. Thank you very much for choosing us to provide your emergent health care needs. - Post Discharge Activity Work/Back to School Note: Back to Work
[2020-01-20] MEDS ORDERED: ACETAMINOPHEN 500 MG TABLET (FP) PO ONE (15:22)
[2020-01-20] MEDS ORDERED: ACETAMINOPHEN 500 MG TABLET (FP) ONE (15:23)
== END 2020-01-20 15:30 | disposition home or self-care (01) ==
LOC: JER 11:07 → JERFT 11:07
PROC: 3E0233Z Introduction of Anti-inflammatory into Muscle, Percutaneous Approach (ICD-10-PCS; principal; 2020-01-20)
DX: M77.12 Lateral epicondylitis, left elbow (principal); I10 Essential (primary) hypertension; E78.00 Pure hypercholesterolemia, unspecified
CPT/HCPCS: 73030-TC-LT-FY; 73070-TC-LT-FY; 93971; 99285-25

== ENCOUNTER 2020-05-18 13:08 | Inpatient (IN) | payer OTHER ==
--- NOTE | 2020-05-18 13:25 | PDOC ---
History of Present Illness - General Stated Complaint: HYPERTENSION Time Seen by Provider: 05/18/20 13:25 - History of Present Illness Initial Comments: 05/18/20 14:27 55 year old with a history of HTN who presents with R temporal headache and R ear pain for the past 4 days. The patient denies any other symptoms including nausea, dizziness, lightheadedness, chest pain or shortness of breath. She took a low dose tylenol earlier in the week with some moderate relief. She has no other complaints. ROS GENERAL/CONSTITUTIONAL: No fever or chills. No weakness. HEAD, EYES, EARS, NOSE AND THROAT: No change in vision. No ear pain or discharge. No sore throat. CARDIOVASCULAR: No chest pain or shortness of breath RESPIRATORY: No cough, wheezing, or hemoptysis. GASTROINTESTINAL: No nausea, vomiting, diarrhea or constipation. GENITOURINARY: No dysuria, frequency, or change in urination. MUSCULOSKELETAL: No joint or muscle swelling or pain. No neck or back pain. SKIN: No rash NEUROLOGIC: + headache, No vertigo, loss of consciousness, or change in streng th/sensation. ENDOCRINE: No increased thirst. No abnormal weight change HEMATOLOGIC/LYMPHATIC: No anemia, easy bleeding, or history of blood clots. ALLERGIC/IMMUNOLOGIC: No hives or skin allergy. PE GENERAL: Awake, alert, and fully oriented, in no acute distress HEAD: No signs of trauma, normocephalic, atraumatic EYES: EOMI, sclera anicteric, conjunctiva clear ENT: oropharynx clear without exudates. Moist mucosa NECK: Normal ROM, supple LUNGS: No distress, speaks full sentences, clear to auscultation bilaterally HEART: Regular rate and rhythm, normal S1 and S2, no murmurs, rubs or gallops, peripheral pulses normal and equal bilaterally. ABDOMEN: Soft, nontender. No guarding, no rebound. No masses EXTREMITIES : Normal inspection, Normal range of motion, no edema. No clubbing or cyanosis. NEUROLOGICAL: Cranial nerves II through XII grossly intact. Normal speech, no focal sensorimotor deficits SKIN: Warm, Dry, normal turgor, no rashes or lesions noted Assessment and Plan 55 year old with a history of HTN who presents with R temporal headache and R ear pain for the past 4 days. Consider HTN urgency vs HTN emergency - cbc cmp, trop, ekg, cxr, head CT Tylenol dosed BP 200s systolic Norvasc EKG unchanges from [address] negative Trop elevated ASA 324 dosed Plan for admission for HTN Emergency Cait Urbina, PGY2 Emergency Medicine Past History - Medical History Allergies/Adverse Reactions: Allergies Allergy/AdvReac Type Severity Reaction Status Date / Time No Known Allergies Allergy Verified 05/25/20 16:41 Home Medications: Ambulatory Orders Amlodipine Besylate [Norvasc -] 10 mg PO DAILY #30 tablet 05/21/20 Aspirin [ASA -] 81 mg PO DAILY #30 tab.chew 05/21/20 Atorvastatin Ca [Lipitor] 80 mg PO HS #30 tablet 05/21/20 Labetalol HCl [Normodyne -] 200 mg PO BID #60 tablet 05/21/20 Glimepiride 1 mg PO DAILY #30 tablet 05/28/20 COPD: No HTN: Yes Hypercholesterolemia: Yes - Surgical History Abdominal Surgery: Yes (FIBROIDS) - Reproductive History (#): 5 Para: 2 Therapeutic (s) & number: Yes (3) Tubal Ligation: Yes - Psycho-Social/Smoking History Smoking Status: No Smoking History: Never smoked Have you smoked in the past 12 months: No Number of Cigarettes Smoked Daily: 0 ED Treatment Course - LABORATORY CBC & Chemistry Diagram: 05/21/20 06:30 05/21/20 06:30 Discharge - Discharge Information Problems reviewed: Yes Clinical Impression/Diagnosis: Hypertensive emergency Condition: Good Disposition: HOME - Follow up/Referral - Patient Discharge Instructions - Post Discharge Activity
--- NOTE | 2020-05-18 13:26 | PDOC ---
Attending Attestation - Resident Resident Name: Cait Urbina - HPI HPI: 05/18/20 15:25 Pt presents to the ED complaining of temporal headache that is moderate in severity and has been persistent for three days. Denies nausea, vomiting or fever. Complains of chest "soreness" but denies shortness of breath. Denies jaw claudication or visual changes. - Physicial Exam PE: 05/18/20 15:28 Agree with resident exam. Patient is alert and oriented x 3 and in no acute distress. CN 2-12 grossly intact. CV: rrr no m/r/g Pulm: CTA b/l abdomen: soft, non tender non distended without guarding or rebound. - Medical Decision Making 05/18/20 15:32 Pt presents to the ED complaining of temporal headache. On questioning, admits to "chest soreness". Neurologically intact. Severely hypertensive. Labs show elevated troponin. WIll treat with ASA and lower MAP by 20% to treat hypertensive emergency. WIll admit to medicine. Discharge - Discharge Information Problems reviewed: Yes Clinical Impression/Diagnosis: Hypertensive emergency Condition: Good - Follow up/Referral - Patient Discharge Instructions - Post Discharge Activity
[2020-05-18 13:36] VITALS: BMI 38.7
[2020-05-18] MEDS ORDERED: ACETAMINOPHEN 325 MG TABLET (FP) PO ONE (14:25)
[2020-05-18] MEDS ORDERED: amLODIPine BESYLATE 5 MG TABLET (FP) PO ONE (14:25)
[2020-05-18 14:29] LABS: BASO % 0.9 % (0-2.0); EOS % 1.9 % (0-4.5); HEMATOCRIT 42.9 % (32.4-45.2); HEMOGLOBIN 13.9 GM/dL (10.7-15.3); LYMPH % 28.7 % (8-40); MCH 28.8 pg (25.7-33.7); MCHC 32.5 g/dl (32.0-36.0); MEAN CELL VOLUME 88.4 fl (80-96); MEAN PLT VOLUME 9.9 fl (7.5-11.1); MONO % 10.4 % (3.8-10.2); NEUT % 58.1 % (42.8-82.8); PLATELET COUNT 273 K/MM3 (134-434); RBC 4.85 M/mm3 (3.60-5.2); RDW 16.3 % (11.6-15.6); WHITE BLOOD COUNT 5.1 K/mm3 (4.0-10.0)
[2020-05-18] MEDS ORDERED: ACETAMINOPHEN 325 MG TABLET (FP) ONE (14:30)
[2020-05-18] MEDS ORDERED: amLODIPine BESYLATE 5 MG TABLET (FP) ONE (14:30)
[2020-05-18 14:53] LABS: BILIRUBIN,TOTAL 0.5 mg/dL (0.2-1); BLOOD UREA NITROGEN 12.4 mg/dL (7-18); CALCIUM 9.8 mg/dL (8.5-10.1); CREATININE 1.3 mg/dL (0.55-1.3); POTASSIUM 3.8 mmol/L (3.5-5.1); TOT PROT 7.7 g/dl (6.4-8.2)
[2020-05-18] MEDS ORDERED: ASPIRIN 81 MG CHEWABLE TABLETS PO ONE (15:09)
[2020-05-18] MEDS ORDERED: LABETALOL HCL 5 MG/1 ML (100MG/20 ML VIAL) IVPUSH ONE ×2 (15:12→21:27)
[2020-05-18 15:17] LABS: ERYTHROCYTE SEDIMENTATION RATE 7 mm/hr (0-30)
[2020-05-18] MEDS ORDERED: ASPIRIN 81 MG CHEWABLE TABLETS ONE (15:20)
[2020-05-18] MEDS ORDERED: LABETALOL HCL 5 MG/1 ML (200MG/40ML VIAL) IVPB ONE (15:20)
--- NOTE | 2020-05-18 16:02 | HP ---
Admitting History and Physical - Primary Care Physician PCP: Cassandra Donaldson - Admission Chief Complaint: headache and also R ear pain, for a few days History of Present Illness: 55 year old with a history of HTN who presents with R temporal headache and R ea r pain for the past 4 days. The patient denies any other symptoms including nausea, dizziness, lightheadedness, chest pain or shortness of breath. She took a low dose tylenol earlier in the week with some moderate relief. She has no other complaints. 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 (chronic)) Cardiovascular: Yes: HTN, Hyperlipdemia, Other (obesity) ...LMP: 07/07/15 - Past Surgical History Past Surgical History: Yes: Tubal Ligation - Smoking History Smoking history: Never smoked Have you smoked in the past 12 months: No Aproximately how many cigarettes per day: 0 - Alcohol/Substance Use Hx Alcohol Use: Yes Home Medications - Allergies Allergies/Adverse Reactions: Allergies Allergy/AdvReac Type Severity Reaction Status Date / Time No Known Allergies Allergy Verified 01/20/20 11:14 - Home Medications Home Medications: Ambulatory Orders Losartan Potassium 100 mg PO DAILY 06/15/17 Triamterene/Hydrochlorothiazid [Triamterene-Hctz 37.5-25 mg Cp] 1 each PO DAILY 06/16/17 Atorvastatin Ca [Lipitor] 40 mg PO HS #30 tablet 11/18/18 Azithromycin [Zithromax Tri-Han (3 DAYS) -] 500 mg PO DAILY #3 tablet 08/26/19 Guaifenesin AC [Robitussin AC] 10 ml PO Q8H PRN #120 ml MDD 30 08/26/19 Family Medical History Family History: Denies Review of Systems - Review of Systems Constitutional: reports: No Symptoms Eyes: reports: No Symptoms HENT: reports: No Symptoms Neck: reports: No Symptoms Cardiovascular: reports: No Symptoms Respiratory: reports: No Symptoms Neurological: reports: Headache, Other (R ear pain.) Hematology/Lymphatic: reports: No Symptoms Psychiatric: reports: No Symptoms Physical Examination Vital Signs: Vital Signs Temperature 98.9 F 05/18/20 13:34 Pulse Rate 78 05/18/20 15:52 Respiratory Rate 18 05/18/20 15:52 Blood Pressure 188/110 H 05/18/20 15:52 O2 Sat by Pulse Oximetry (%) 99 05/18/20 15:52 Constitutional: Yes: Well Nourished, No Distress Eyes: Yes: Conjunctiva Clear, EOM Intact HENT: Yes: Atraumatic, Normocephalic, Other (R ear appars normal no dc, on otoscopic exam) Neck: Yes: Supple, Trachea Midline Cardiovascular: Yes: Regular Rate and Rhythm Respiratory: Yes: Regular, CTA Bilaterally Gastrointestinal: Yes: Normal Bowel Sounds, Soft Renal/: Yes: WNL, Urethral Discharge Edema: No Peripheral Pulses WNL: Yes Integumentary: Yes: WNL Neurological: Yes: WNL, Alert, Oriented ...Motor Strength: WNL Labs: CBC, BMP 05/18/20 13:50 05/18/20 13:50 Imaging - Results Cat Scan: Report Reviewed (no acute findings) EKG: Report Reviewed, Image Reviewed (nsr no acute st t changes,) Assessment/Plan 55 year old with 1.hypertensive emergency, slightly high tropnin, will check the repeat, and echo. tele and continue labetalol asa amlodipine, and will titrate, and fu 2.R ear and Rtemporal pain. get esr no visual complaint, and likly from the HTN uncontrolled, and will fu 3. dvt prophylaxis, lovenox and will start low na diet, Visit type - Emergency Visit Emergency Visit: Yes ED Registration Date: 05/18/20 Care time: The patient presented to the Emergency Department on the above date and was hospitalized for further evaluation of their emergent condition. - New Patient This patient is new to me today: Yes Date on this admission: 05/18/20 - Critical Care Critical Care patient: No
[2020-05-18] MEDS: ASPIRIN 81 MG CHEWABLE TABLETS PO SCH (16:45)
[2020-05-18] MEDS ORDERED: ENOXAPARIN NA (PORCINE) 40 MG/0.4 ML DISP.SYRIN SQ ONE (17:41)
[2020-05-18] MEDS: ENOXAPARIN NA (PORCINE) 40 MG/0.4 ML DISP.SYRIN SQ SCH (17:52)
--- NOTE | 2020-05-18 18:27 | EKG ---
Test Reason : Blood Pressure : / mmHG Vent. Rate : 082 BPM Atrial Rate : 082 BPM P-R Int : 164 ms QRS Dur : 080 ms QT Int : 342 ms P-R-T Axes : 056 -14 082 degrees QTc Int : 399 ms NORMAL SINUS RHYTHM WITH SINUS ARRHYTHMIA LEFT ATRIAL ENLARGEMENT SEPTAL INFARCT (CITED ON OR BEFORE 03-APR-2015) ABNORMAL ECG Confirmed by MD CAMARGO MOYSES ([id number]) on 05/18/2020 6:27:07 PM Referred By: Confirmed By:REMY CAMARGO MD
[2020-05-18 23:47] LABS: URINE APPEARANCE Clear; URINE BILIRUBIN Negative (NEGATIVE); URINE COLOR Yellow; URINE GLUCOSE (UA) Negative (NEGATIVE); URINE KETONE Negative (NEGATIVE); URINE LEUK ESTERASE Negative (NEGATIVE); URINE NITRITE Negative (NEGATIVE); URINE PROTEIN Trace (NEGATIVE)
[2020-05-19] MEDS: ACETAMINOPHEN 325 MG TABLET (FP) PO PRN ×3 (04:28→21:30)
[2020-05-19 07:06] LABS: ALBUMIN 3.4 g/dl (3.4-5.0); BLOOD UREA NITROGEN 12.7 mg/dL (7-18); CALCIUM 9.4 mg/dL (8.5-10.1); POTASSIUM 3.8 mmol/L (3.5-5.1)
[2020-05-19 07:07] LABS: BASO % 1.2 % (0-2.0); BILIRUBIN,TOTAL 0.4 mg/dL (0.2-1); CREATININE 1.2 mg/dL (0.55-1.3); EOS % 2.8 % (0-4.5); HEMATOCRIT 39.4 % (32.4-45.2); HEMOGLOBIN 12.9 GM/dL (10.7-15.3); LYMPH % 38.7 % (8-40); MCHC 32.7 g/dl (32.0-36.0); MEAN CELL VOLUME 88.7 fl (80-96); MEAN PLT VOLUME 9.7 fl (7.5-11.1); MONO % 10.9 % (3.8-10.2); NEUT % 46.4 % (42.8-82.8); PLATELET COUNT 253 K/MM3 (134-434); RBC 4.44 M/mm3 (3.60-5.2); TOT PROT 6.8 g/dl (6.4-8.2); WHITE BLOOD COUNT 4.3 K/mm3 (4.0-10.0)
[2020-05-19] MEDS: ENOXAPARIN NA (PORCINE) 40 MG/0.4 ML DISP.SYRIN SQ SCH (09:11)
[2020-05-19] MEDS: ASPIRIN 81 MG CHEWABLE TABLETS PO SCH (09:11)
[2020-05-19] MEDS ORDERED: LABETALOL HCL 100 MG TABLET (FP) PO SCH (10:00)
[2020-05-19] MEDS ORDERED: amLODIPine BESYLATE 10 MG TABLET (FP) PO SCH (10:00)
[2020-05-19] MEDS ORDERED: DICLOFENAC SODIUM 25 MG TABLET.DR PO ONE (13:00)
[2020-05-19] MEDS ORDERED: KETOROLAC TROMETHAMINE 15 MG/ML VIAL IVPUSH ONE (13:08)
[2020-05-19] MEDS: LOSARTAN POTASSIUM 50 MG TABLET (FP) PO SCH (13:10)
[2020-05-19] MEDS: TRIAMTERENE AND HCTZ - 37.5 MG/25 MG CAPSULE PO SCH (14:05)
[2020-05-19] MEDS ORDERED: PT OWN MED DRAWER 7, Y5N ONE (14:10)
--- NOTE | 2020-05-19 18:37 | PN ---
<Jarret Fernando - Last Filed: 05/19/20 18:49> Physical Exam: SUBJECTIVE: Patient seen and examined at bedside. Denies SOB or chest pain. OBJECTIVE: Vital Signs Period Temp Pulse Resp BP Sys/Garcia Pulse Ox Last 24 Hr 97.9 F-98.4 F 78-87 18-20 147-181/79-116 96-99 GENERAL: NAD HEAD: Normal with no signs of trauma. EYES:EOMI Sclera clear ENT: MMM. LUNGS: Clear HEART: RRR S1S2 ABDOMEN: Soft NDNt Obese EXTREMITIES: No Sig Edema NEUROLOGICAL: Cranial nerves II through XII grossly intact. Normal speech PSYCH: Normal mood, normal affect. SKIN: Warm, dry, normal turgor, no rashes or lesions noted Laboratory Results - last 24 hr 05/18/20 05/18/20 05/19/20 21:40 23:00 05:48 WBC 4.3 RBC 4.44 Hgb 12.9 Hct 39.4 MCV 88.7 MCH 29.0 MCHC 32.7 RDW 16.0 H Plt Count 253 MPV 9.7 Absolute Neuts (auto) 2.0 Neutrophils % 46.4 D Lymphocytes % 38.7 D Monocytes % 10.9 H Eosinophils % 2.8 Basophils % 1.2 Nucleated RBC % 0 Sodium Potassium Chloride Carbon Dioxide Anion Gap BUN Creatinine Est GFR (CKD-EPI)AfAm Est GFR (CKD-EPI)NonAf Random Glucose Hemoglobin A1c % Calcium Total Bilirubin AST ALT Alkaline Phosphatase Creatine Kinase 177 Creatine Kinase Index No Result Required. CK-MB (CK-2) < 1.0 Troponin I 0.38 H Total Protein Albumin Triglycerides Cholesterol Total LDL Cholesterol HDL Cholesterol Urine Color Yellow Urine Appearance Clear Urine pH 6.0 Ur Specific Noel >= 1.030 Urine Protein Trace Urine Glucose (UA) Negative Urine Ketones Negative Urine Blood Negative Urine Nitrite Negative Urine Bilirubin Negative Urine Urobilinogen 1.0 Ur Leukocyte Esterase Negative 05/19/20 05/19/20 05:48 05:48 WBC RBC Hgb Hct MCV MCH MCHC RDW Plt Count MPV Absolute Neuts (auto) Neutrophils % Lymphocytes % Monocytes % Eosinophils % Basophils % Nucleated RBC % Sodium 142 Potassium 3.8 Chloride 108 H Carbon Dioxide 26 Anion Gap 8 BUN 12.7 Creatinine 1.2 Est GFR (CKD-EPI)AfAm 59.75 Est GFR (CKD-EPI)NonAf 51.55 Random Glucose 111 H Hemoglobin A1c % 6.6 H Calcium 9.4 Total Bilirubin 0.4 AST 18 ALT 29 Alkaline Phosphatase 96 Creatine Kinase 152 Creatine Kinase Index 0.7 CK-MB (CK-2) 1.2 Troponin I 0.37 H Total Protein 6.8 Albumin 3.4 Triglycerides 162 H Cholesterol 223 H Total LDL Cholesterol 149 H HDL Cholesterol 40 Urine Color Urine Appearance Urine pH Ur Specific Noel Urine Protein Urine Glucose (UA) Urine Ketones Urine Blood Urine Nitrite Urine Bilirubin Urine Urobilinogen Ur Leukocyte Esterase Active Medications Generic Name Dose Route Start Last Admin Trade Name Freq PRN Reason Stop Dose Admin Acetaminophen 650 mg 05/18/20 16:04 05/19/20 13:10 Tylenol - PO 650 mg Q6H PRN Administration PAIN LEVEL 4 - 6 Amlodipine Besylate 10 mg 05/20/20 10:00 Norvasc - PO DAILY JONE Aspirin 81 mg 05/18/20 16:15 05/19/20 09:11 Asa - PO 81 mg DAILY JONE Administration Heparin Sodium (Porcine) 5,000 unit 05/20/20 10:00 Heparin - SQ TID [facility] Insulin Aspart 1 vial 05/19/20 22:00 Novolog Vial Sliding Scale - SQ ACHS [facility] Protocol Labetalol HCl 200 mg 05/19/20 22:00 Normodyne - PO BID [facility] Losartan Potassium 100 mg 05/19/20 12:15 05/19/20 13:10 Cozaar - PO 100 mg DAILY JONE Administration Triamterene/HCTZ 1 cap 05/19/20 12:15 05/19/20 14:05 Dyazide 25/37.5mg PO 1 cap DAILY JONE Administration ASSESSMENT/PLAN: 55 year old with a history of HTN who presented to [facility] with R temporal headache and R ear pain for the past 4 days. Found to have a Blood pressure of 221/139 in ED. #.Hypertensive Emergency, -Slightly high trop. downtrended echo pending -EKG--> No acute ST-T wave abnormalities. QTc 399. No sig change from previous EKG in 2018. -tele monitoring -Will consult Cardio-Dr Sommers. Recs appreciated. -Labetalol 200 BID. received am dose. Will restart patient on home medications (Triamterene/HCTZ and Cozaar 100 Daily) and reassess. Possibly noncompliant with medications -asa amlodipine 10 recieved this am. #.R ear and R temporal pain. -ESR WNL -Likely 2/2 Hypertensive emergency -Acetaminophen PRN -Toradol PRN 3 DVT PPX HepSQTID Visit type - Emergency Visit Emergency Visit: Yes ED Registration Date: 05/18/20 Care time: The patient presented to the Emergency Department on the above date and was hospitalized for further evaluation of their emergent condition. - New Patient This patient is new to me today: Yes Date on this admission: 05/19/20 - Critical Care Critical Care patient: No - Discharge Referral Referred to [facility] No ATTENDING PHYSICIAN STATEMENT I saw and evaluated the patient. I reviewed the resident's note and discussed the case with the resident. I agree with the resident's findings and plan as documented. SUBJECTIVE: OBJECTIVE: ASSESSMENT AND PLAN: <Clark Neumann - Last Filed: 05/20/20 15:02> Physical Exam: SUBJECTIVE: Patient seen and examined OBJECTIVE: Vital Signs Period Temp Pulse Resp BP Sys/Garcia Pulse Ox Last 24 Hr 98 F-98.1 F 78-85 18-20 135-192/94-116 98-98 GENERAL: The patient is awake, alert, and fully oriented, in no acute distress. HEAD: Normal with no signs of trauma. EYES: PERRL, extraocular movements intact, sclera anicteric, conjunctiva clear. No ptosis. ENT: Ears normal, nares patent, oropharynx clear without exudates, moist mucous membranes. NECK: Trachea midline, full range of motion, supple. LUNGS: Breath sounds equal, clear to auscultation bilaterally, no wheezes, no crackles, no accessory muscle use. HEART: Regular rate and rhythm, S1, S2 without murmur, rub or gallop. ABDOMEN: Soft, nontender, nondistended, normoactive bowel sounds, no guarding, no rebound, no hepatosplenomegaly, no masses. EXTREMITIES: 2+ pulses, warm, well-perfused, no edema. NEUROLOGICAL: Cranial nerves II through XII grossly intact. Normal speech, gait not observed. PSYCH: Normal mood, normal affect. SKIN: Warm, dry, normal turgor, no rashes or lesions noted Laboratory Results - last 24 hr 05/19/20 05/20/20 05/20/20 20:29 05:30 08:04 WBC RBC Hgb Hct MCV MCH MCHC RDW Plt Count MPV Sodium 138 Potassium 4.3 Chloride 103 Carbon Dioxide 26 Anion Gap 10 BUN 13.5 Creatinine 1.3 Est GFR (CKD-EPI)AfAm 54.24 Est GFR (CKD-EPI)NonAf 46.80 POC Glucometer 123 115 Random Glucose 118 H Calcium 10.7 H Phosphorus 3.6 Magnesium 2.4 Total Bilirubin 0.6 AST 20 ALT 35 Alkaline Phosphatase 109 Total Protein 7.8 Albumin 4.1 05/20/20 05/20/20 08:04 11:48 WBC 4.9 RBC 4.71 Hgb 13.8 Hct 42.2 MCV 89.5 MCH 29.3 MCHC 32.8 RDW 16.1 H Plt Count 288 MPV 9.8 Sodium Potassium Chloride Carbon Dioxide Anion Gap BUN Creatinine Est GFR (CKD-EPI)AfAm Est GFR (CKD-EPI)NonAf POC Glucometer 96 Random Glucose Calcium Phosphorus Magnesium Total Bilirubin AST ALT Alkaline Phosphatase Total Protein Albumin Active Medications Generic Name Dose Route Start Last Admin Trade Name Freq PRN Reason Stop Dose Admin Acetaminophen 650 mg 05/18/20 16:04 05/20/20 08:26 Tylenol - PO 650 mg Q6H PRN Administration PAIN LEVEL 4 - 6 Amlodipine Besylate 10 mg 05/20/20 10:00 05/20/20 10:12 Norvasc - PO Not Given DAILY JONE Aspirin 81 mg 05/18/20 16:15 05/20/20 09:40 Asa - PO 81 mg DAILY JONE Administration Atorvastatin Calcium 80 mg 05/19/20 22:00 05/19/20 21:31 Lipitor - PO 80 mg HS JONE Administration Heparin Sodium (Porcine) 5,000 unit 05/20/20 10:00 05/20/20 13:59 Heparin - SQ 5,000 unit TID JONE Administration Insulin Aspart 1 vial 05/19/20 22:00 05/20/20 11:49 Novolog Vial Sliding Scale - SQ Not Given ACHS [facility] Protocol Labetalol HCl 200 mg 05/19/20 22:00 05/20/20 10:12 Normodyne - PO Not Given BID JONE Losartan Potassium 100 mg 05/19/20 12:15 05/20/20 09:40 Cozaar - PO 100 mg DAILY JONE Administration Polyethylene Glycol 17 gm 05/20/20 13:30 05/20/20 13:59 Miralax (For Daily Use) - PO 17 gm DAILY JONE Administration Triamterene/HCTZ 1 cap 05/19/20 12:15 05/20/20 09:39 Dyazide 25/37.5mg PO 1 cap DAILY JONE Administration ASSESSMENT/PLAN: ATTENDING PHYSICIAN STATEMENT I saw and evaluated the patient. I reviewed the resident's note and discussed the case with the resident. I agree with the resident's findings and plan as documented. Attending attestation: This morning the patient had complaints of a headache and felt like her ear was throbbing. She denies nausea vomiting fever chills chest pain shortness of breath diarrhea constipation or any other symptoms at this time. The patient endorses she has poor eating habits. She has poor insight into food that she should and should not eat for her hypertension, weight loss, diabetes, and hyperlipidemia. I discussed patient at length that she is at high risk for including but not limited to heart disease, vascular disease, kidney failure and other disease processes which may be caused by uncontrolled blood pressure hyperlipidemia new onset diabetes. On exam she is alert awake and oriented to person place and time. She has a regular rate and rhythm on cardiac exam. Lungs are clear to auscultation bilaterally. Abdomen is soft tender nondistended but obese. She has no CVA tenderness. No suprapubic tenderness. Hearing is grossly intact. Cranial nerves II through XII are grossly intact. There is trace bilateral lower extremity edema. Vision is intact. Extraocular movements are intact. Pupils are equally round and reactive to light. The patient's home medications were held by the admitting physician and she was started on Norvasc 10 mg daily and labetalol 100 mg p.o. twice daily. I also resume the patient's home medications of triamterene/hydrochlorothiazide 37.5/25 and losartan 100 mg p.o. daily. I have extensive discussion with the patient about the importance of diet and exercise. The patient does not seem to really have much insight into the different food groups such as protein fats and carbohydrates and what she should avoid. I explained to the patient that she will need to be discharged on metformin. For now will start on insulin sliding scale and monitor her fingersticks before each meal and at bedtime. Sliding scale only before meals. After the patient has received her home medications and the Norvasc and labetalol her blood pressure was still uncontrolled and in the high 160s to 170s systolic and in the 1 teens diastolic. I will increase her labetalol to 200 mg p.o. twice daily. I would try to avoid a drop in the patient's blood pressure back to normal very rapidly as the patient presented with a blood pressure of 221/139. I have ordered a dietitian/director of rehabilitation consult to help educate the patient about different food groups and foods that have high glycemic indexes that she should avoid and to help her understand complex and hydrate. Cardiology consult noted and appreciated. Nephrology consult in place. I discussed the case with Dr. Butler who will see the patient in consultation. Of note, more than half of my visit was spent discussing the plan of care with the patient and counseling her on the importance of diet and exercise.
[2020-05-19] MEDS ORDERED: ATORVASTATIN CA 80 MG TABLET (FP) PO ONE (19:33)
--- NOTE | 2020-05-19 21:30 | CON.CARD ---
Consult Consult Specialty:: cardiology Reason for Consultation:: chest pain; elevated TNI; - History of Present Illness History of Present Illness: Ms. Gonzales is a 55 year old black woman with a PM history of DM, HTN, obesity, sedentary lifestyle, hyperlipidemia, who presents with R temporal headache and R ear pain for the past 4 days. The patient denies any other symptoms including nausea, dizziness, lightheadedness, chest pain or shortness of breath. She took a low dose tylenol earlier in the week with some moderate relief. She has no other complaints. 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)) Cardio/Vascular: Yes: HTN, Hyperlipdemia, Other (obesity) ...LMP: 07/07/15 ...: No - Past Surgical History Past Surgical History: Yes: Tubal Ligation - Alcohol/Substance Use Hx Alcohol Use: Yes - Smoking History Smoking history: Never smoked Have you smoked in the past 12 months: No Aproximately how many cigarettes per day: 0 Home Medications - Allergies Allergies/Adverse Reactions: Allergies Allergy/AdvReac Type Severity Reaction Status Date / Time No Known Allergies Allergy Verified 01/20/20 11:14 - Home Medications Home Medications: Ambulatory Orders Losartan Potassium 100 mg PO DAILY 06/15/17 Triamterene/Hydrochlorothiazid [Triamterene-Hctz 37.5-25 mg Cp] 1 each PO DAILY 06/16/17 Review of Systems - Review of Systems Constitutional: reports: No Symptoms Eyes: reports: No Symptoms HENT: reports: Ear Pain, Other Neck: reports: No Symptoms Cardiovascular: reports: No Symptoms Respiratory: reports: No Symptoms Gastrointestinal: reports: No Symptoms Genitourinary: reports: No Symptoms Breasts: reports: No Symptoms Reported Musculoskeletal: reports: No Symptoms Integumentary: reports: No Symptoms Neurological: reports: Headache Endocrine: reports: No Symptoms Hematology/Lymphatic: reports: No Symptoms Psychiatric: reports: No Symptoms - Risk Factors Known Risk Factors: Yes: Age, Diabetes Mellitus, Hypercholesterolemia, Hypertension, Physical Inactivity, Race, Other (obesity) Vital Signs: Vital Signs Temperature 98.1 F 05/19/20 17:11 Pulse Rate 84 05/19/20 17:11 Respiratory Rate 20 05/19/20 17:11 Blood Pressure 158/116 H 05/19/20 17:11 O2 Sat by Pulse Oximetry (%) 96 05/19/20 09:00 Constitutional: Yes: Obese Eyes: Yes: WNL HENT: Yes: WNL Neck: Yes: WNL Respiratory: Yes: WNL Gastrointestinal: Yes: Soft, Tenderness Renal/: No: Anuria Cardiovascular: Yes: Regular Rate and Rhythm JVD: No Carotid Bruit: No PMI: Non-Displaced Heart Sounds: Yes: S1, S2, S4 Murmur: Yes: Systolic Murmur, Grade 2 Musculoskeletal: Yes: WNL Extremities: Yes: WNL Edema: No Peripheral Pulses WNL: Yes Integumentary: Yes: WNL Neurological: Yes: WNL ...Motor Strength: WNL Psychiatric: Yes: WNL - Other Data Labs, Other Data: CBC, BMP 05/19/20 05:48 05/19/20 05:48 Troponin, BNP 05/18/20 05/19/20 21:40 05:48 Troponin I 0.38 H 0.37 H Troponin, BNP 05/18/20 05/19/20 21:40 05:48 Troponin I 0.38 H 0.37 H Abnormal Lab Results 05/19/20 05/19/20 05/19/20 05:48 05:48 05:48 RDW 16.0 H Monocytes % 10.9 H Chloride 108 H Random Glucose 111 H Hemoglobin A1c % 6.6 H Troponin I 0.37 H Triglycerides 162 H Cholesterol 223 H Total LDL Cholesterol 149 H Echo: Report Reviewed Ejection Fraction %: LVEF > or = 40 % Imaging - Results Chest X-ray: Image Reviewed EKG: Image Reviewed Assessment/Plan Uncontrolled HTN; headache DM Hyperlipidemia Elevated TNI obesity sedentary Noncompliance to medications, diet Plan: On multiple antihypertensives: amlodipine, labetolol, losartan, Dyazide. TNi elevated 0.42-->0.37. EKG: NSR; sinus arrhythmia; septal infarct noted since at least 2014 ECHO for LVEF, diastolic compliance, wall thickness and cavity sizes, valve status. ASA 81 mg daily. For stress MIBI when BP has improved.
[2020-05-19] MEDS: ATORVASTATIN CA 80 MG TABLET (FP) PO SCH (21:31)
[2020-05-19] MEDS: LABETALOL HCL 100 MG TABLET (FP) PO SCH (21:31)
[2020-05-19] MEDS: INSULIN SLIDING SCALE (NOVOLOG) 1 VIAL SQ SCH (21:40)
[2020-05-20] MEDS: INSULIN SLIDING SCALE (NOVOLOG) 1 VIAL SQ SCH ×4 (06:02→21:31)
[2020-05-20] MEDS ORDERED: PT OWN MED DRAWER 7, Y5N ONE (08:18)
[2020-05-20] MEDS: ACETAMINOPHEN 325 MG TABLET (FP) PO PRN (08:26)
[2020-05-20] MEDS: LABETALOL HCL 100 MG TABLET (FP) PO SCH ×3 (08:27→21:30)
[2020-05-20] MEDS: amLODIPine BESYLATE 10 MG TABLET (FP) PO SCH ×2 (08:27→10:12)
[2020-05-20 08:36] LABS: HEMATOCRIT 42.2 % (32.4-45.2); HEMOGLOBIN 13.8 GM/dL (10.7-15.3); MCH 29.3 pg (25.7-33.7); MCHC 32.8 g/dl (32.0-36.0); MEAN CELL VOLUME 89.5 fl (80-96); MEAN PLT VOLUME 9.8 fl (7.5-11.1); PLATELET COUNT 288 K/MM3 (134-434); RBC 4.71 M/mm3 (3.60-5.2); RDW 16.1 % (11.6-15.6); WHITE BLOOD COUNT 4.9 K/mm3 (4.0-10.0)
--- NOTE | 2020-05-20 08:38 | CONSULT ---
Consult Consult Specialty:: Nephrology Referred by:: Dr Neumann Reason for Consultation:: hypertension - History of Present Illness Chief Complaint: headache History of Present Illness: Pt is a 55 year old lady with pmhx of htn who presented to the ER with headache and earache for four days duration. She was found to have markedly elevated bp and I was called to evaluate her. She says that she has long standing htn. She says that her bp does get out of control at times. She says that she has regularly been taking her meds. She is on various bp meds leds. She denies chest pain or palpitations. She denies dysuria or hematura. She has never seen a sql data architect. She is on losartan, triamterene and hctz as outpt. 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)) Cardio/Vascular: Yes: HTN, Hyperlipdemia, Other (obesity) ...LMP: 07/07/15 ...: No - Past Surgical History Past Surgical History: Yes: Tubal Ligation - Alcohol/Substance Use Hx Alcohol Use: Yes - Smoking History Smoking history: Never smoked Have you smoked in the past 12 months: No Aproximately how many cigarettes per day: 0 Home Medications - Allergies Allergies/Adverse Reactions: Allergies Allergy/AdvReac Type Severity Reaction Status Date / Time No Known Allergies Allergy Verified 01/20/20 11:14 - Home Medications Home Medications: Ambulatory Orders Losartan Potassium 100 mg PO DAILY 06/15/17 Triamterene/Hydrochlorothiazid [Triamterene-Hctz 37.5-25 mg Cp] 1 each PO DAILY 06/16/17 Family Medical History Family History: Denies Review of Systems - Review of Systems Constitutional: reports: Malaise Eyes: reports: No Symptoms HENT: reports: Ear Pain Neck: reports: No Symptoms Cardiovascular: reports: No Symptoms Respiratory: reports: No Symptoms Gastrointestinal: reports: No Symptoms Genitourinary: reports: No Symptoms Musculoskeletal: reports: No Symptoms Integumentary: reports: No Symptoms Neurological: reports: No Symptoms Endocrine: reports: No Symptoms Hematology/Lymphatic: reports: No Symptoms Psychiatric: reports: No Symptoms Physical Exam Vital Signs: Vital Signs Temperature 98 F 05/20/20 08:33 Pulse Rate 78 05/20/20 08:33 Respiratory Rate 18 05/20/20 08:33 Blood Pressure 169/110 H 05/20/20 08:33 O2 Sat by Pulse Oximetry (%) 98 05/19/20 21:00 Constitutional: Yes: Calm Eyes: Yes: Conjunctiva Clear HENT: Yes: Atraumatic Neck: Yes: Supple Cardiovascular: Yes: S1, S2 Respiratory: Yes: CTA Bilaterally Gastrointestinal: Yes: Soft Renal/: Yes: WNL Extremities: Yes: WNL Edema: No Neurological: Yes: Oriented Psychiatric: Yes: Oriented Imaging - Results Chest X-ray: Report Reviewed Problem List - Problems (1) Proteinuria Code(s): R80.9 - PROTEINURIA, UNSPECIFIED (2) Hypertensive emergency Code(s): I16.1 - HYPERTENSIVE EMERGENCY Assessment/Plan Current Medications Generic Name Dose Route Start Last Admin Trade Name Freq PRN Reason Stop Dose Admin Acetaminophen 650 mg 05/18/20 16:04 05/20/20 08:26 Tylenol - PO 650 mg Q6H PRN Administration PAIN LEVEL 4 - 6 Amlodipine Besylate 10 mg 05/20/20 10:00 05/20/20 08:27 Norvasc - PO 10 mg DAILY JONE Administration Aspirin 81 mg 05/18/20 16:15 05/19/20 09:11 Asa - PO 81 mg DAILY JONE Administration Atorvastatin Calcium 80 mg 05/19/20 22:00 05/19/20 21:31 Lipitor - PO 80 mg HS JONE Administration Heparin Sodium (Porcine) 5,000 unit 05/20/20 10:00 Heparin - SQ TID [facility] Insulin Aspart 1 vial 05/19/20 22:00 05/20/20 06:02 Novolog Vial Sliding Scale - SQ Not Given ACHS [facility] Protocol Labetalol HCl 200 mg 05/19/20 22:00 05/20/20 08:27 Normodyne - PO 200 mg BID JONE Administration Losartan Potassium 100 mg 05/19/20 12:15 05/19/20 13:10 Cozaar - PO 100 mg DAILY JONE Administration Triamterene/HCTZ 1 cap 05/19/20 12:15 05/19/20 14:05 Dyazide 25/37.5mg PO 1 cap DAILY JONE Administration Selected Entries 05/20/20 14:05 Blood Pressure 156/76 Laboratory Tests 11/18/18 05/18/20 05/19/20 11:40 23:00 05:48 Hemoglobin A1c % 7.4 H 6.6 H Urine Protein Trace Urine Blood Negative Impression 1. HTN 2. proteinuria 3. hld 4. DM 5. ear pain 6. CKD with reduced gfr and proteinuria Plan - bp is improving - cont current meds - will need outpt follow up and workup - it is reasonable to do secondary htn workup as outpt - follow echo and stress - cardio follow up - discussed with medical team - will follow
[2020-05-20 09:08] LABS: POTASSIUM 4.3 mmol/L (3.5-5.1)
--- NOTE | 2020-05-20 09:09 | PN ---
Progress Note, Physician History of Present Illness: Ms. Gonzales is a 55 year old black woman with a PM history of DM, HTN, obesity, sedentary lifestyle, hyperlipidemia, who presents with R temporal headache and R ear pain for the past 4 days. The patient denies any other symptoms including nausea, dizziness, lightheadedness, chest pain or shortness of breath. She took a low dose tylenol earlier in the week with some moderate relief. She has no other complaints. denies using the q tips, no ear discharge, no sore throat, no fever, no chills, she went to the Urgent care and had BP in 230 systolic and was asked to come to the ER, out pt bp is in 160s most of the time, takes meds, non compliant with diet and exercise for years Stress treadmill MIBI 06/07: no ischemia; fair exercise functional capacity ECHO 2018: normal LVEF, normal size and thickness; mild MR and TR - Current Medication List Current Medications: Active Medications Acetaminophen (Tylenol -) 650 mg PO Q6H PRN PRN Reason: PAIN LEVEL 4 - 6 Last Admin: 05/20/20 08:26 Dose: 650 mg Documented by: Amlodipine Besylate (Norvasc -) 10 mg PO DAILY [facility] Last Admin: 05/20/20 08:27 Dose: 10 mg Documented by: Aspirin (Asa -) 81 mg PO DAILY [facility] Last Admin: 05/19/20 09:11 Dose: 81 mg Documented by: Atorvastatin Calcium (Lipitor -) 80 mg PO HS [facility] Last Admin: 05/19/20 21:31 Dose: 80 mg Documented by: Heparin Sodium (Porcine) (Heparin -) 5,000 unit SQ TID [facility] Insulin Aspart (Novolog Vial Sliding Scale -) 1 vial SQ ACHS [facility]; Protocol Last Admin: 05/20/20 06:02 Dose: Not Given Documented by: Labetalol HCl (Normodyne -) 200 mg PO BID [facility] Last Admin: 05/20/20 08:27 Dose: 200 mg Documented by: Losartan Potassium (Cozaar -) 100 mg PO DAILY [facility] Last Admin: 05/19/20 13:10 Dose: 100 mg Documented by: Triamterene/HCTZ (Dyazide 25/37.5mg) 1 cap PO DAILY [facility] Last Admin: 05/19/20 14:05 Dose: 1 cap Documented by: - Objective Vital Signs: Vital Signs Temperature 98 F 05/20/20 08:33 Pulse Rate 78 05/20/20 08:33 Respiratory Rate 18 05/20/20 08:33 Blood Pressure 169/110 H 05/20/20 08:33 O2 Sat by Pulse Oximetry (%) 98 05/19/20 21:00 Eyes: Yes: WNL, Conjunctiva Clear, EOM Intact HENT: Yes: WNL, Atraumatic, Normocephalic Neck: Yes: WNL, Supple, Trachea Midline Cardiovascular: Yes: WNL, Regular Rate and Rhythm Respiratory: Yes: WNL, Regular, CTA Bilaterally Gastrointestinal: Yes: WNL, Normal Bowel Sounds Genitourinary: Yes: WNL Musculoskeletal: Yes: WNL Extremities: Yes: WNL Edema: No Integumentary: Yes: WNL Neurological: Yes: WNL, Alert, Oriented ...Motor Strength: WNL Psychiatric: Yes: WNL Labs: CBC, BMP 05/20/20 08:04 05/20/20 08:04 Assessment/Plan Uncontrolled HTN; headache DM Hyperlipidemia Elevated TNI obesity sedentary Noncompliance to medications, diet Plan: On multiple antihypertensives: amlodipine, labetolol, losartan, Dyazide. TNi elevated 0.42-->0.37. EKG: NSR; sinus arrhythmia; septal infarct noted since at least 2014 ECHO for LVEF, diastolic compliance, wall thickness and cavity sizes, valve status. ASA 81 mg daily. For stress MIBI when BP has improved.
[2020-05-20 09:15] LABS: ALBUMIN 4.1 g/dl (3.4-5.0); BILIRUBIN,TOTAL 0.6 mg/dL (0.2-1); BLOOD UREA NITROGEN 13.5 mg/dL (7-18); CALCIUM 10.7 mg/dL (8.5-10.1); CREATININE 1.3 mg/dL (0.55-1.3); MAGNESIUM 2.4 mg/dL (1.8-2.4); PHOSPHOROUS 3.6 mg/dL (2.5-4.9); TOT PROT 7.8 g/dl (6.4-8.2)
[2020-05-20] MEDS: HEPARIN NA (PORCINE) 5,000 UNITS/ML 1ML VIAL SQ SCH ×3 (09:39→21:31)
[2020-05-20] MEDS: TRIAMTERENE AND HCTZ - 37.5 MG/25 MG CAPSULE PO SCH (09:39)
[2020-05-20] MEDS: LOSARTAN POTASSIUM 50 MG TABLET (FP) PO SCH (09:40)
[2020-05-20] MEDS: ASPIRIN 81 MG CHEWABLE TABLETS PO SCH (09:40)
--- NOTE | 2020-05-20 11:13 | EKG ---
Test Reason : Blood Pressure : / mmHG Vent. Rate : 077 BPM Atrial Rate : 077 BPM P-R Int : 180 ms QRS Dur : 080 ms QT Int : 380 ms P-R-T Axes : 055 -11 138 degrees QTc Int : 430 ms NORMAL SINUS RHYTHM SEPTAL INFARCT (CITED ON OR BEFORE 03-APR-2015) T WAVE ABNORMALITY, CONSIDER LATERAL ISCHEMIA ABNORMAL ECG WHEN COMPARED WITH ECG OF 18-MAY-2020 17:20, No significant changes Confirmed by BESSY ST MD ([id number]) on 05/20/2020 11:12:54 AM Referred By: AMANDA MURILLO DR Confirmed By:BESSY ST MD
--- NOTE | 2020-05-20 11:14 | EKG ---
Test Reason : Blood Pressure : / mmHG Vent. Rate : 089 BPM Atrial Rate : 089 BPM P-R Int : 176 ms QRS Dur : 086 ms QT Int : 338 ms P-R-T Axes : 055 -18 120 degrees QTc Int : 411 ms NORMAL SINUS RHYTHM POSSIBLE LEFT ATRIAL ENLARGEMENT SEPTAL INFARCT (CITED ON OR BEFORE 03-APR-2015) T WAVE ABNORMALITY, CONSIDER LATERAL ISCHEMIA ABNORMAL ECG WHEN COMPARED WITH ECG OF 18-MAY-2020 14:09, No significant changes Confirmed by BESSY ST MD ([id number]) on 05/20/2020 11:14:25 AM Referred By: Confirmed By:BESSY ST MD
--- NOTE | 2020-05-20 13:23 | PN ---
Teaching Attending Note Name of Resident: Jarret Fernando ATTENDING PHYSICIAN STATEMENT I saw and evaluated the patient. I reviewed the resident's note and discussed the case with the resident. I agree with the resident's findings and plan as documented. SUBJECTIVE: No fever or chills. cont to have R sided GARCIA , and R ear pain. No CP or SOB . No N.V . OBJECTIVE: NAD HEENT: MMM, TTP over the R sided forehead. R tympanic membrane and external auditory canal are normal. Temporal artery is pull Lungs: CTAB CV: RRR, no mRG Abd: soft, NT, ND , no bruits over renal arteries Ext: No edema or erythema on upper or lower extremities ASSESSMENT AND PLAN: 55 y/o y/o female with h/o HTN who presented with GARCIA and ear pain, she was found to have severe HTN 1- HTN emergency , with trop elevation . today BP during the rounds 140 /90 on the current regimen - cont cozaar, hctz/triamterine , labetalol, and norvasc - out pt w/u for secondary causes of HTN 2- R sided ear pain , external auditory canal and TM are normal . has tenderness to touch in R forehead. 3- Elevated trop: demand in setting of HTN - stress test when BP is controlled , hopefully tomoorow. - will keep NPO after MN in case 4- New onset Dm : educated about her disease - will dc on metformine - weight loss and exercise recommended - out pt podiatry and Opth as out pt 5- DVT PX Possible dc tomorrow
--- NOTE | 2020-05-20 13:32 | PN ---
Physical Exam: SUBJECTIVE: Patient seen and examined at bedside. No acute events. OBJECTIVE: Vital Signs Period Temp Pulse Resp BP Sys/Garcia Pulse Ox Last 24 Hr 98 F-98.1 F 78-85 18-20 135-192/94-116 98-98 GENERAL: No acute distress HEAD: Normal with no signs of trauma. EYES:EOMI Sclera clear ENT: MMM. Right Tympanic membrane appears Nl-no erythema/signs of infection. LUNGS: Clear HEART: RRR S1S2 ABDOMEN: Soft NDNT Obese EXTREMITIES: No Sig Edema NEUROLOGICAL: Cranial nerves II through XII grossly intact. Normal speech PSYCH: Normal mood, normal affect. SKIN: Warm, dry Laboratory Results - last 24 hr 05/19/20 05/20/20 05/20/20 20:29 05:30 08:04 WBC RBC Hgb Hct MCV MCH MCHC RDW Plt Count MPV Sodium 138 Potassium 4.3 Chloride 103 Carbon Dioxide 26 Anion Gap 10 BUN 13.5 Creatinine 1.3 Est GFR (CKD-EPI)AfAm 54.24 Est GFR (CKD-EPI)NonAf 46.80 POC Glucometer 123 115 Random Glucose 118 H Calcium 10.7 H Phosphorus 3.6 Magnesium 2.4 Total Bilirubin 0.6 AST 20 ALT 35 Alkaline Phosphatase 109 Total Protein 7.8 Albumin 4.1 05/20/20 05/20/20 08:04 11:48 WBC 4.9 RBC 4.71 Hgb 13.8 Hct 42.2 MCV 89.5 MCH 29.3 MCHC 32.8 RDW 16.1 H Plt Count 288 MPV 9.8 Sodium Potassium Chloride Carbon Dioxide Anion Gap BUN Creatinine Est GFR (CKD-EPI)AfAm Est GFR (CKD-EPI)NonAf POC Glucometer 96 Random Glucose Calcium Phosphorus Magnesium Total Bilirubin AST ALT Alkaline Phosphatase Total Protein Albumin Active Medications Generic Name Dose Route Start Last Admin Trade Name Freq PRN Reason Stop Dose Admin Acetaminophen 650 mg 05/18/20 16:04 05/20/20 08:26 Tylenol - PO 650 mg Q6H PRN Administration PAIN LEVEL 4 - 6 Amlodipine Besylate 10 mg 05/20/20 10:00 05/20/20 10:12 Norvasc - PO Not Given DAILY JONE Aspirin 81 mg 05/18/20 16:15 05/20/20 09:40 Asa - PO 81 mg DAILY JONE Administration Atorvastatin Calcium 80 mg 05/19/20 22:00 05/19/20 21:31 Lipitor - PO 80 mg HS JONE Administration Heparin Sodium (Porcine) 5,000 unit 05/20/20 10:00 05/20/20 09:39 Heparin - SQ 5,000 unit TID JONE Administration Insulin Aspart 1 vial 05/19/20 22:00 05/20/20 11:49 Novolog Vial Sliding Scale - SQ Not Given ACHS [facility] Protocol Labetalol HCl 200 mg 05/19/20 22:00 05/20/20 10:12 Normodyne - PO Not Given BID JONE Losartan Potassium 100 mg 05/19/20 12:15 05/20/20 09:40 Cozaar - PO 100 mg DAILY JONE Administration Polyethylene Glycol 17 gm 05/20/20 13:30 Miralax (For Daily Use) - PO DAILY JONE Triamterene/HCTZ 1 cap 05/19/20 12:15 05/20/20 09:39 Dyazide 25/37.5mg PO 1 cap DAILY JONE Administration ASSESSMENT/PLAN: 55 year old with a history of HTN who presented to [facility] with R temporal headache and R ear pain for the past 4 days. Found to have a Blood pressure of 221/139 in ED. #.Hypertensive Emergency, -Slightly high trop. downtrended -echo pending -EKG--> No acute ST-T wave abnormalities. QTc 399. No sig change from previous EKG in 2018. -tele monitoring -Will consult Cardio-Dr Sommers. Stress treadmill MIBI 06/07: no ischemia; fair exercise functional capacity -ECHO 2018: normal LVEF, normal size and thickness; mild MR and TR -For Stress MIBI once HTN under control -cont cozaar, hctz/triamterine , labetalol, and norvasc Possibly noncompliant with medications. BP today on rounds was 140/90. -asa #.R ear and R temporal pain. -ESR WNL -Likely 2/2 Hypertensive emergency -Acetaminophen PRN -Toradol PRN 3 DVT PPX HepSQTID Visit type - Emergency Visit Emergency Visit: Yes ED Registration Date: 05/18/20 Care time: The patient presented to the Emergency Department on the above date and was hospitalized for further evaluation of their emergent condition. - New Patient This patient is new to me today: No - Critical Care Critical Care patient: No - Discharge Referral Referred to [facility] No ATTENDING PHYSICIAN STATEMENT I saw and evaluated the patient. I reviewed the resident's note and discussed the case with the resident. I agree with the resident's findings and plan as documented. SUBJECTIVE: OBJECTIVE: ASSESSMENT AND PLAN:
[2020-05-20] MEDS: POLYETHYLENE GLYCOL 3350 119 GM BTL PO SCH (13:59)
[2020-05-20] MEDS: ATORVASTATIN CA 80 MG TABLET (FP) PO SCH (21:31)
[2020-05-20] MEDS ORDERED: ATORVASTATIN CA 80 MG TABLET (FP) PO ONE (22:00)
[2020-05-21] MEDS: HEPARIN NA (PORCINE) 5,000 UNITS/ML 1ML VIAL SQ SCH ×2 (05:36→14:24)
[2020-05-21] MEDS: INSULIN SLIDING SCALE (NOVOLOG) 1 VIAL SQ SCH ×2 (06:19→14:22)
[2020-05-21 08:03] LABS: HEMOGLOBIN 13.8 GM/dL (10.7-15.3); MCH 28.9 pg (25.7-33.7); MCHC 32.8 g/dl (32.0-36.0); MEAN CELL VOLUME 88.3 fl (80-96); PLATELET COUNT 287 K/MM3 (134-434); RBC 4.75 M/mm3 (3.60-5.2); RDW 16.2 % (11.6-15.6); WHITE BLOOD COUNT 5.7 K/mm3 (4.0-10.0)
[2020-05-21 08:24] LABS: CALCIUM 10.5 mg/dL (8.5-10.1); CREATININE 1.4 mg/dL (0.55-1.3); MAGNESIUM 2.5 mg/dL (1.8-2.4); PHOSPHOROUS 4.3 mg/dL (2.5-4.9); POTASSIUM 4.6 mmol/L (3.5-5.1)
--- NOTE | 2020-05-21 10:03 | PN ---
Teaching Attending Note Name of Resident: Holley Farrar ATTENDING PHYSICIAN STATEMENT I saw and evaluated the patient. I reviewed the resident's note and discussed the case with the resident. I agree with the resident's findings and plan as documented. SUBJECTIVE: Patient feels better now. BP is controlled. OBJECTIVE: Vital Signs Temperature 97.4 F L 05/21/20 05:00 Pulse Rate 79 05/21/20 05:00 Respiratory Rate 20 05/21/20 05:00 Blood Pressure 118/95 05/21/20 05:00 O2 Sat by Pulse Oximetry (%) 96 05/20/20 21:00 PE; per resident's note CBCD WBC 5.7 K/mm3 (4.0-10.0) 05/21/20 06:30 RBC 4.75 M/mm3 (3.60-5.2) 05/21/20 06:30 Hgb 13.8 GM/dL (10.7-15.3) 05/21/20 06:30 Hct 42.0 % (32.4-45.2) 05/21/20 06:30 MCV 88.3 fl (80-96) 05/21/20 06:30 MCHC 32.8 g/dl (32.0-36.0) 05/21/20 06:30 RDW 16.2 % (11.6-15.6) H 05/21/20 06:30 Plt Count 287 K/MM3 (134-434) 05/21/20 06:30 MPV 10.0 fl (7.5-11.1) 05/21/20 06:30 CMP Sodium 139 mmol/L (136-145) 05/21/20 06:30 Potassium 4.6 mmol/L (3.5-5.1) 05/21/20 06:30 Chloride 104 mmol/L (98-107) 05/21/20 06:30 Carbon Dioxide 26 mmol/L (21-32) 05/21/20 06:30 Anion Gap 9 MMOL/L (8-16) 05/21/20 06:30 BUN 17.0 mg/dL (7-18) 05/21/20 06:30 Creatinine 1.4 mg/dL (0.55-1.3) H 05/21/20 06:30 Random Glucose 118 mg/dL (74-106) H 05/21/20 06:30 Calcium 10.5 mg/dL (8.5-10.1) H 05/21/20 06:30 Total Bilirubin 0.6 mg/dL (0.2-1) 05/20/20 08:04 AST 20 U/L (15-37) 05/20/20 08:04 ALT 35 U/L (13-61) 05/20/20 08:04 Alkaline Phosphatase 109 U/L (45-117) 05/20/20 08:04 Total Protein 7.8 g/dl (6.4-8.2) 05/20/20 08:04 Albumin 4.1 g/dl (3.4-5.0) 05/20/20 08:04 CARDIAC ENZYMES Creatine Kinase 152 U/L (26-192) 05/19/20 05:48 Troponin I 0.37 ng/ml (0.00-0.05) H 05/19/20 05:48 Home Medications Medication Instructions Recorded Losartan Potassium 100 mg PO DAILY 06/15/17 Triamterene/Hydrochlorothiazid 1 each PO DAILY 06/16/17 [Triamterene-Hctz 37.5-25 mg Cp] Current Medications Generic Name Dose Route Start Last Admin Trade Name Freq PRN Reason Stop Dose Admin Acetaminophen 650 mg 05/18/20 16:04 05/20/20 08:26 Tylenol - PO 650 mg Q6H PRN Administration PAIN LEVEL 4 - 6 Amlodipine Besylate 10 mg 05/20/20 10:00 05/20/20 10:12 Norvasc - PO Not Given DAILY JONE Aspirin 81 mg 05/18/20 16:15 05/20/20 09:40 Asa - PO 81 mg DAILY JONE Administration Atorvastatin Calcium 80 mg 05/19/20 22:00 05/20/20 21:31 Lipitor - PO 80 mg HS JONE Administration Heparin Sodium (Porcine) 5,000 unit 05/20/20 10:00 05/21/20 05:36 Heparin - SQ 5,000 unit TID JONE Administration Insulin Aspart 1 vial 05/19/20 22:00 05/21/20 06:19 Novolog Vial Sliding Scale - SQ Not Given ACHS [facility] Protocol Labetalol HCl 200 mg 05/19/20 22:00 05/20/20 21:30 Normodyne - PO 200 mg BID JONE Administration Losartan Potassium 100 mg 05/19/20 12:15 05/20/20 09:40 Cozaar - PO 100 mg DAILY JONE Administration Polyethylene Glycol 17 gm 05/20/20 13:30 05/20/20 13:59 Miralax (For Daily Use) - PO 17 gm DAILY JONE Administration Triamterene/HCTZ 1 cap 05/19/20 12:15 05/20/20 09:39 Dyazide 25/37.5mg PO 1 cap DAILY JONE Administration ASSESSMENT AND PLAN: This patient is a 55yof with PMhx of HTN who presented with GARCIA and ear pain, and was admitted for hypertensive emergency. # HTN emergency , with trop elevation . Bp is improved today , will dc the patient on cont cozaar, hctz/triamterine , labetalol, and norvasc out pt w/u for secondary causes of HTN # Elevated trop: demand in setting of HTN , stress test is negative # New onset Dm : educated about her disease , will dc on metformin , crclearnce is 50 , ordered 500mg daily. follow up closely with PMd and monitor kidney function , weight loss and exercise recommended , out pt podiatry and Opth as out pt. close follow up with PMD dc patient home
[2020-05-21 10:35] VITALS: PULSE 78; TEMP 98.2
[2020-05-21] MEDS ORDERED: PT OWN MED DRAWER 7, Y5N ONE ×3 (10:43→14:15)
[2020-05-21] MEDS: ASPIRIN 81 MG CHEWABLE TABLETS PO SCH ×2 (10:51→14:23)
[2020-05-21] MEDS: POLYETHYLENE GLYCOL 3350 119 GM BTL PO SCH (10:51)
[2020-05-21] MEDS: TRIAMTERENE AND HCTZ - 37.5 MG/25 MG CAPSULE PO SCH ×2 (10:51→14:23)
[2020-05-21] MEDS: amLODIPine BESYLATE 10 MG TABLET (FP) PO SCH (10:52)
[2020-05-21] MEDS: LABETALOL HCL 100 MG TABLET (FP) PO SCH (10:53)
[2020-05-21] MEDS: LOSARTAN POTASSIUM 50 MG TABLET (FP) PO SCH ×2 (10:54→14:23)
--- NOTE | 2020-05-21 13:02 | ECHO ---
Name: REJI MCCLURE Exam:Adult Echocardiogram Study Date: 05/21/2020 11:15 AM Age: 55 yrs Reason For Study: HTN MMode/2D Measurements & Calculations IVSd: 1.2 cm Ao root diam: 2.3 cm LVIDd: 3.6 cm LA dimension: 3.5 cm LVIDs: 2.4 cm LVPWd: 1.3 cm LVPWs: 1.3 cm EDV(Teich): 55.1 ml ESV(Teich): 21.0 ml LVOT diam: 1.8 cm LAV (MOD-bp): 43.0 ml RV S Jourdan: 11.7 cm/sec Doppler Measurements & Calculations MV E max jourdan: 58.2 cm/sec Ao V2 max: 152.2 cm/sec MV A max jourdan: 66.1 cm/sec Ao max P.3 mmHg MV E/A: 0.88 KIKI(V,D): 1.6 cm2 MV dec time: 0.18 sec LV V1 max P.7 mmHg PA V2 max: 93.0 cm/sec LV V1 max: 96.3 cm/sec PA max P.5 mmHg Med Peak E' Jourdan: 4.5 cm/sec Med E/e': 13.0 Lat Peak E' Jourdan: 5.9 cm/sec Lat E/e': 9.8 Procedure A complete two-dimensional transthoracic echocardiogram was performed (2D, M-mode, Doppler and color flow Doppler). The patient was in normal sinus rhythm during the exam. Left Ventricle The left ventricle is normal in size. There is borderline concentric left ventricular hypertrophy. Th e left ventricular ejection fraction is normal. Ejection Fraction = 60%. E/A reversal consistent with but no t diagnostic of poor LV compliance. The left ventricular wall motion is normal. Right Ventricle The right ventricle is normal in size and function. Atria Normal left and right atrial size and function. Mitral Valve The mitral valve is normal in structure and function. There is trace mitral regurgitation. Tricuspid Valve The tricuspid valve is normal in structure and function. There is trace tricuspid regurgitation. Ther e was insufficient TR detected to calculate RV systolic pressure. Aortic Valve The aortic valve is normal in structure and function. Pulmonic Valve The pulmonic valve is normal in structure and function. Great Vessels The aortic root is normal size. Pericardium/Pleura There is no pericardial effusion. There is no pleural effusion. Interpretation Summary This degree of valvular regurgitation is within normal limits. The left ventricle is normal in size. There is borderline concentric left ventricular hypertrophy. The left ventricular ejection fraction is normal. Ejection Fraction = 60%. MD Jose Allen 05/21/2020 01:01 PM
--- NOTE | 2020-05-21 14:26 | PN ---
Progress Note, Physician Chief Complaint: Pt A&Ox3; asymptomatic. History of Present Illness: Ms. Gonzales is a 55 year old black woman with a PM history of DM, HTN, obesity, sedentary lifestyle, hyperlipidemia, who presents with R temporal headache and R ear pain for the past 4 days. The patient denies any other symptoms including nausea, dizziness, lightheadedness, chest pain or shortness of breath. She took a low dose tylenol earlier in the week with some moderate relief. She has no other complaints. denies using the q tips, no ear discharge, no sore throat, no fever, no chills, she went to the Urgent care and had BP in 230 systolic and was asked to come to the ER, out pt bp is in 160s most of the time, takes meds, non compliant with diet and exercise for years Stress treadmill MIBI 06/07: no ischemia; fair exercise functional capacity ECHO 2018: normal LVEF, normal size and thickness; mild MR and TR. PMD: Dr. Walters - Current Medication List Current Medications: Active Medications Acetaminophen (Tylenol -) 650 mg PO Q6H PRN PRN Reason: PAIN LEVEL 4 - 6 Last Admin: 05/20/20 08:26 Dose: 650 mg Documented by: Amlodipine Besylate (Norvasc -) 10 mg PO DAILY [facility] Last Admin: 05/21/20 10:52 Dose: 10 mg Documented by: Aspirin (Asa -) 81 mg PO DAILY [facility] Last Admin: 05/21/20 10:51 Dose: Not Given Documented by: Atorvastatin Calcium (Lipitor -) 80 mg PO HS [facility] Last Admin: 05/20/20 21:31 Dose: 80 mg Documented by: Heparin Sodium (Porcine) (Heparin -) 5,000 unit SQ TID [facility] Last Admin: 05/21/20 05:36 Dose: 5,000 unit Documented by: Insulin Aspart (Novolog Vial Sliding Scale -) 1 vial SQ ACHS [facility]; Protocol Last Admin: 05/21/20 06:19 Dose: Not Given Documented by: Labetalol HCl (Normodyne -) 200 mg PO BID [facility] Last Admin: 05/21/20 10:53 Dose: 200 mg Documented by: Losartan Potassium (Cozaar -) 100 mg PO DAILY [facility] Last Admin: 05/21/20 10:54 Dose: Not Given Documented by: Polyethylene Glycol (Miralax (For Daily Use) -) 17 gm PO DAILY [facility] Last Admin: 05/21/20 10:51 Dose: Not Given Documented by: Triamterene/HCTZ (Dyazide 25/37.5mg) 1 cap PO DAILY [facility] Last Admin: 05/21/20 10:51 Dose: Not Given Documented by: - Objective Vital Signs: Vital Signs Temperature 98.2 F 05/21/20 09:00 Pulse Rate 78 05/21/20 09:00 Respiratory Rate 20 05/21/20 09:00 Blood Pressure 144/86 05/21/20 09:00 O2 Sat by Pulse Oximetry (%) 97 05/21/20 09:00 Labs: CBC, BMP 05/21/20 06:30 05/21/20 06:30 Assessment/Plan Uncontrolled HTN; headache DM Hyperlipidemia Elevated TNI obesity sedentary Noncompliance to medications, diet Plan: Stress MIBI today: no myocardial ischemia. From a cardiac standpoint, pt may be discharged and followed as an outpatient. On multiple antihypertensives: amlodipine, labetolol, losartan, Dyazide. TNi elevated 0.42-->0.37-->0.36. EKG: NSR; sinus arrhythmia; septal infarct noted since at least 2014 ECHO: normal LVEF; abnormal diastolic compliance. ASA 81 mg daily; continue atorvastatin. Dietary modification, weight loss, increase exercise discussed.
[2020-05-21 14:27] VITALS: BP 136/70
--- NOTE | 2020-05-21 15:14 | DS ---
Physical Exam: SUBJECTIVE: Patient seen and examined at bedside. No acute events overnight. OBJECTIVE: Vital Signs Period Temp Pulse Resp BP Sys/Garcia Pulse Ox Last 24 Hr 97.4 F-98.3 F 78-83 18-20 118-156/70-98 96-97 PHYSICAL EXAM GENERAL: No acute distress HEAD: Normal with no signs of trauma. EYES:EOMI Sclera clear ENT: MMM. Right Tympanic membrane appears Nl-no erythema/signs of infection. LUNGS: Clear HEART: RRR S1S2 ABDOMEN: Soft NDNT Obese EXTREMITIES: No Sig Edema NEUROLOGICAL: Cranial nerves II through XII grossly intact. Normal speech PSYCH: Normal mood, normal affect. SKIN: Warm, dry LABS Laboratory Results - last 24 hr 05/18/20 05/20/20 05/20/20 18:00 17:00 20:48 WBC RBC Hgb Hct MCV MCH MCHC RDW Plt Count MPV Sodium Potassium Chloride Carbon Dioxide Anion Gap BUN Creatinine Est GFR (CKD-EPI)AfAm Est GFR (CKD-EPI)NonAf POC Glucometer 86 115 Random Glucose Calcium Phosphorus Magnesium TSH COVID-19 ([facility]LLA) Not detected 05/21/20 05/21/20 05/21/20 05:38 06:30 06:30 WBC 5.7 RBC 4.75 Hgb 13.8 Hct 42.0 MCV 88.3 MCH 28.9 MCHC 32.8 RDW 16.2 H Plt Count 287 MPV 10.0 Sodium 139 Potassium 4.6 Chloride 104 Carbon Dioxide 26 Anion Gap 9 BUN 17.0 Creatinine 1.4 H Est GFR (CKD-EPI)AfAm 49.59 Est GFR (CKD-EPI)NonAf 42.79 POC Glucometer 114 Random Glucose 118 H Calcium 10.5 H Phosphorus 4.3 Magnesium 2.5 H TSH 2.13 COVID-19 ([facility]LLA) 05/21/20 14:21 WBC RBC Hgb Hct MCV MCH MCHC RDW Plt Count MPV Sodium Potassium Chloride Carbon Dioxide Anion Gap BUN Creatinine Est GFR (CKD-EPI)AfAm Est GFR (CKD-EPI)NonAf POC Glucometer 93 Random Glucose Calcium Phosphorus Magnesium TSH COVID-19 ([facility]) HOSPITAL COURSE: Date of Admission:05/18/20 55 year old female with a history of HTN who presented to [facility] with R temporal headache and R ear pain for the past 4 days. She was found to have a Blood pressure of 221/139 in ED admitted for hypertensive emergency. Lab work showed elevated trops. EKG showed NSR; sinus arrhythmia with a septal infarct noticed since at least 2014. Echo showed borderline concentric LVH, EF 60%. She was started on Labetolol and Amlodipine in addition to her own home BP meds. Pt was monitored on tele with improvement in BP. Nuclear stress test was done that showed no myocardial ischemia. Additionally, lab work showed Hgb 6.6%. During her hospital stay, her symptoms improved. She was discharged home with the following medications: Amlodipine, HCTZ/Triamterene, Labetolol, Losartan, Atorvastatin, and Metformin. She was also advised to follow up with her pcp and ultrasonic cleaner and to follow a strict diabetic diet. Repeat lab work to be done to check creatinine clearance. Also advised to follow up with ophtho and podiatry for routine diabetic check up. Pt verbalized understanding and in agreement with plan upon discharge. Date of Discharge: 05/21/20 Minutes to complete discharge: 38 Discharge Summary Problems reviewed: Yes Reason For Visit: HYPERTENSIVE EMERGENCY Current Active Problems Hypertensive emergency (Acute) Proteinuria (Acute) Condition: Good - Instructions Diet, Activity, Other Instructions: You were seen in the hospital for complaints of high blood pressure and right ear pain. You were seen in the hospital and started on blood pressure medications. Your blood work showed elevated heart enzymes and as a result, you were seen by the ultrasonic cleaner. You underwent a stress test that did not show any acute cardiac condition requiring emergent intervention. You are now stable for discharge home. Medications We have made the following changes to your medication regimen: Please START taking Amlodipine 10 mg once a day by mouth. Please START taking Labetolol 200 mg twice a day by mouth. Please START taking Metformin 500 mg once a day by mouth for your diabetes. Please START Aspirin 81 mg once a day by mouth. Please START Atorvastatin 80 mg once a day by mouth. You may continue taking the rest of your home medications as prescribed. Follow Up Please follow up with your primary care physician, Dr. Michelle Torres, within 1 week. need to repeat LABs , to follow your Creatinine clearance. Please follow up with your ultrasonic cleaner, Dr. Bourne, within 1 week. Due to your new diagnosis of diabetes, please follow up with an eye doctor and a windows phone developer for outpatient evaluation. This is very important as you will need routine checkups. Recommendations You were found to have newly diagnosed diabetes (Hemoglobin A1c 6.6%). It is very important that you lose weight to prevent your diabetes from getting worse. You will also need to follow a strict diabetic diet. If you experience worsening chest pain, shortness of breath, blurry vision, persistent headache or other associated symptoms, please proceed to your nearest emergency room immediately. Referrals: Dayne Bourne MD [Staff Physician] - 1 Week Michelle Torres MD [Primary Care Provider] - 1 Week Disposition: HOME - Home Medications Comprehensive Discharge Medication List: Ambulatory Orders Losartan Potassium 100 mg PO DAILY 06/15/17 Triamterene/Hydrochlorothiazid [Triamterene-Hctz 37.5-25 mg Cp] 1 each PO DAILY 06/16/17 Amlodipine Besylate [Norvasc -] 10 mg PO DAILY #30 tablet 05/21/20 Aspirin [ASA -] 81 mg PO DAILY #30 tab.chew 05/21/20 Atorvastatin Ca [Lipitor] 80 mg PO HS #30 tablet 05/21/20 Labetalol HCl [Normodyne -] 200 mg PO BID #60 tablet 05/21/20 This patient is new to me today: No Emergency Visit: Yes ED Registration Date: 05/18/20 Care time: The patient presented to the Emergency Department on the above date and was hospitalized for further evaluation of their emergent condition. Critical Care patient: No - Discharge Referral Referred to [facility] No ATTENDING PHYSICIAN STATEMENT I saw and evaluated the patient. I reviewed the resident's note and discussed the case with the resident. I agree with the resident's findings and plan as documented. SUBJECTIVE: OBJECTIVE: ASSESSMENT AND PLAN:
--- NOTE | 2020-05-21 17:54 | PN ---
Progress Note, Physician History of Present Illness: Pt seen and examined at bedside. She is awake and alert. She denies shortness of breath. - Objective Vital Signs: Vital Signs Temperature 98.2 F 05/21/20 09:00 Pulse Rate 78 05/21/20 09:00 Respiratory Rate 20 05/21/20 09:00 Blood Pressure 136/70 05/21/20 14:20 O2 Sat by Pulse Oximetry (%) 97 05/21/20 09:00 Constitutional: Yes: Calm Eyes: Yes: Conjunctiva Clear HENT: Yes: Atraumatic Neck: Yes: Supple Cardiovascular: Yes: S1, S2 Respiratory: Yes: CTA Bilaterally Gastrointestinal: Yes: Soft Genitourinary: Yes: WNL Musculoskeletal: Yes: WNL Edema: No Neurological: Yes: Oriented Psychiatric: Yes: Oriented Labs: CBC, BMP 05/21/20 06:30 05/21/20 06:30 Problem List - Problems (1) Proteinuria Code(s): R80.9 - PROTEINURIA, UNSPECIFIED (2) Hypertensive emergency Code(s): I16.1 - HYPERTENSIVE EMERGENCY Assessment/Plan Current Medications Generic Name Dose Route Start Last Admin Trade Name Freq PRN Reason Stop Dose Admin Acetaminophen 650 mg 05/18/20 16:04 05/20/20 08:26 Tylenol - PO 650 mg Q6H PRN Administration PAIN LEVEL 4 - 6 Amlodipine Besylate 10 mg 05/20/20 10:00 05/20/20 08:27 Norvasc - PO 10 mg DAILY JONE Administration Aspirin 81 mg 05/18/20 16:15 05/19/20 09:11 Asa - PO 81 mg DAILY JONE Administration Atorvastatin Calcium 80 mg 05/19/20 22:00 05/19/20 21:31 Lipitor - PO 80 mg HS JONE Administration Heparin Sodium (Porcine) 5,000 unit 05/20/20 10:00 Heparin - SQ TID JONE Insulin Aspart 1 vial 05/19/20 22:00 05/20/20 06:02 Novolog Vial Sliding Scale - SQ Not Given ACHS [facility] Protocol Labetalol HCl 200 mg 05/19/20 22:00 05/20/20 08:27 Normodyne - PO 200 mg BID JONE Administration Losartan Potassium 100 mg 05/19/20 12:15 05/19/20 13:10 Cozaar - PO 100 mg DAILY JONE Administration Triamterene/HCTZ 1 cap 05/19/20 12:15 05/19/20 14:05 Dyazide 25/37.5mg PO 1 cap DAILY JONE Administration Selected Entries 05/20/20 14:05 Blood Pressure 156/76 Laboratory Tests 11/18/18 05/18/20 05/19/20 11:40 23:00 05:48 Hemoglobin A1c % 7.4 H 6.6 H Urine Protein Trace Urine Blood Negative Impression 1. HTN 2. proteinuria 3. hld 4. DM 5. ear pain 6. CKD with reduced gfr and proteinuria Plan - bp is improved - will need outpt workup - pt will get a bp kit and record a bp log over the next few weeks - discussed low salt diet at length - cardio follow up - discussed with medical team
== END 2020-05-21 17:03 | disposition home or self-care (01) | DRG 305 ==
LOC: JER 13:08 → JERBED 15:33 → J4W 21:09
PROVIDERS: ADMIT Internal Medicine; ATTEND Internal Medicine
DX: I16.1 Hypertensive emergency (principal); E11.22 Type 2 diabetes mellitus with diabetic chronic kidney disease; I12.9 Hypertensive chronic kidney disease with stage 1 through stage 4 chronic kidney disease, or unspecified chronic kidney disease; N18.9 Chronic kidney disease, unspecified; E78.5 Hyperlipidemia, unspecified; E66.9 Obesity, unspecified; Z91.14 Patient's other noncompliance with medication regimen; H92.01 Otalgia, right ear; R80.9 Proteinuria, unspecified; Z91.11 Patient's noncompliance with dietary regimen; R79.89 Other specified abnormal findings of blood chemistry; Z68.38 Body mass index [BMI] 38.0-38.9, adult
CPT/HCPCS: 36415; 70450-TC; 71045-TC-FY; 78452-TC; 80048; 80053; 80061; 81003; 82550; 82553; 82962; 83036; 83721; 83735; 84100; 84443; 84484; 84703; 85025; 85027; 85651; 86140; 87086; 93005; 93010; 93017; 93306-TC; 99285-25; A9502; J1644; U0003

== ENCOUNTER 2020-05-25 16:25 | Inpatient (IN) | payer OTHER ==
--- NOTE | 2020-05-25 16:37 | PDOC ---
Rapid Medical Evaluation Chief Complaint: Nausea/Vomiting Time Seen by Provider: 05/25/20 16:32 Medical Evaluation: Allergies Allergy/AdvReac Type Severity Reaction Status Date / Time No Known Allergies Allergy Verified 01/20/20 11:14 05/25/20 16:35 I have performed a brief in-person evaluation of this patient. The patient presents with a chief complaint of: h/o poorly controlled HTN recently admitted and d/c 4 days ago with new dx of diabetes on admission and started on metformin present with complains of 3 days h/o N/V, lightheadedness and malaise with diarrhea which she is unsure if it is caused by the metformin. also report dyspnea of exertion. denies fever Pertinent physical exam findings: heart RRR. lungs CTAB. A&O x 3 in NAD. I have ordered the following: CBC, CMP, glucose check The patient will proceed to the ED for further evaluation. 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
[2020-05-25 17:17] LABS: BASO % 1.1 % (0-2.0); EOS % 0.9 % (0-4.5); HEMATOCRIT 42.6 % (32.4-45.2); HEMOGLOBIN 14.1 GM/dL (10.7-15.3); LYMPH % 18.9 % (8-40); MCH 29.4 pg (25.7-33.7); MCHC 33.1 g/dl (32.0-36.0); MEAN CELL VOLUME 88.8 fl (80-96); MEAN PLT VOLUME 10.2 fl (7.5-11.1); MONO % 7.7 % (3.8-10.2); NEUT % 71.4 % (42.8-82.8); PLATELET COUNT 313 K/MM3 (134-434); RDW 15.7 % (11.6-15.6); WHITE BLOOD COUNT 7.1 K/mm3 (4.0-10.0)
[2020-05-25] MEDS ORDERED: MAG HYDROX/AL HYDROX/SIMETH 30 ML UNIT-DOSE CUP PO ONE (17:29)
[2020-05-25] MEDS ORDERED: ACETAMINOPHEN 500 MG TABLET (FP) PO ONE (17:29)
[2020-05-25] MEDS ORDERED: ONDANSETRON 4 MG/2 ML VIAL IVPUSH ONE ×2 (17:29→20:41)
[2020-05-25] MEDS ORDERED: FAMOTIDINE 20 MG/50 ML IVPB 20 MG/50 ML MG IVPB ONE ×2 (17:29→17:33)
[2020-05-25] MEDS ORDERED: ACETAMINOPHEN 325 MG TABLET (FP) ONE (17:32)
[2020-05-25] MEDS ORDERED: MAG HYDROX/AL HYDROX/SIMETH 30 ML UNIT-DOSE CUP ONE (17:32)
[2020-05-25 18:05] LABS: ALBUMIN 4.2 g/dl (3.4-5.0); ALK PHOS 105 U/L (45-117); ANION GAP 13 MMOL/L (8-16); BILIRUBIN,TOTAL 0.6 mg/dL (0.2-1); CALCIUM 10.4 mg/dL (8.5-10.1); CHLORIDE 102 mmol/L (98-107); CO2 22 mmol/L (21-32); CREATININE 4.7 mg/dL (0.55-1.3); GLUCOSE,RANDOM 129 mg/dL (74-106); SGOT/AST 23 U/L (15-37); SGPT/ALT 35 U/L (13-61); SODIUM 136 mmol/L (136-145); TOT PROT 7.9 g/dl (6.4-8.2)
[2020-05-25 18:21] LABS: MAGNESIUM 2.7 mg/dL (1.8-2.4)
--- NOTE | 2020-05-25 18:26 | PDOC ---
History of Present Illness - General Chief Complaint: Nausea/Vomiting Stated Complaint: SOB/DIZZINESS/NAUSEA Time Seen by Provider: 05/25/20 16:32 - History of Present Illness Initial Comments: 05/25/20 18:25 HPI: 55 y/o F with hx of HTN and DM presenting with nausea and ALONSO. She was recently DCd from an admission 4 days ago from here after being found in hypertensive emergency with SBP 220s and elevated trop. She was DCd on several new meds including losartan, amlodipine, HCTZ, metformin. She reports nausea and emesis associted with nonradiating epigastric abd pain since DC that was a 3/10; not post prandial. She also reports increasing ALONSO without chest pain. No SOB at rest. Denies fever, chills, palp, dysuria, diarrhea, cough, wheeze PMHx: as noted above ROS: as noted SHx: Denies tobacco use; no alcohol use; no rec drugs Allergies: NKDA ROS: GENERAL/CONSTITUTIONAL: No fever or chills. No weakness. HEAD, EYES, EARS, NOSE AND THROAT: No change in vision. No ear pain or discharge. No sore throat. CARDIOVASCULAR: No chest pain; +shortness of breath RESPIRATORY: No cough, wheezing, or hemoptysis. GASTROINTESTINAL: +nausea, vomiting; no diarrhea or constipation. GENITOURINARY: No dysuria, frequency, or change in urination. MUSCULOSKELETAL: No joint or muscle swelling or pain. No neck or back pain. SKIN: No rash NEUROLOGIC: No headache, vertigo, loss of consciousness, or change in strength/sensation. ENDOCRINE: No increased thirst. No abnormal weight change HEMATOLOGIC/LYMPHATIC: No anemia, easy bleeding, or history of blood clots. ALLERGIC/IMMUNOLOGIC: No hives or skin allergy. PE: GENERAL: Awake, alert, and fully oriented, no acute distress HEAD: No signs of trauma, normocephalic, atraumatic EYES: EOMI, sclera anicteric, conjunctiva clear ENT: Auricles normal inspection, hearing grossly normal, nares patent, oropharynx clear without exudates. Moist mucosa NECK: Normal ROM, no lymphadenopathy LUNGS: No increased work of breathing, symmetrical chest rise, clear to auscultation bilaterally, no wheezes, crackles or rhonchi HEART: Regular rate, regular rhythm, normal S1 and S2, no murmur, peripheral pulses 2+ and equal bilaterally. ABDOMEN: Soft, nondistended, mild epigastric ttp. No guarding, no rebound. No masses. No CVAT MUSCULOSKELETAL: FROM NEUROLOGICAL: Cranial nerves II through XII grossly intact. Normal speech, stable gait, no focal sensorimotor deficits SKIN: Warm, Dry, normal turgor, no rashes or lesions noted Past History - Medical History Allergies/Adverse Reactions: Allergies Allergy/AdvReac Type Severity Reaction Status Date / Time No Known Allergies Allergy Verified 05/25/20 16:41 Home Medications: Ambulatory Orders Losartan Potassium 100 mg PO DAILY 06/15/17 Triamterene/Hydrochlorothiazid [Triamterene-Hctz 37.5-25 mg Cp] 1 each PO DAILY 06/16/17 Amlodipine Besylate [Norvasc -] 10 mg PO DAILY #30 tablet 05/21/20 Aspirin [ASA -] 81 mg PO DAILY #30 tab.chew 05/21/20 Atorvastatin Ca [Lipitor] 80 mg PO HS #30 tablet 05/21/20 Labetalol HCl [Normodyne -] 200 mg PO BID #60 tablet 05/21/20 Metformin HCl [Glucophage] 500 mg PO DAILY #30 tablet 05/21/20 COPD: No Diabetes: Yes HTN: Yes Hypercholesterolemia: Yes - Surgical History Abdominal Surgery: Yes (FIBROIDS, TUBAL LIGATION) - Reproductive History (#): 5 Para: 2 Therapeutic (s) & number: Yes (3) Tubal Ligation: Yes - Psycho-Social/Smoking History Smoking Status: No Smoking History: Unknown if ever smoked Have you smoked in the past 12 months: No Number of Cigarettes Smoked Daily: 0 - Substance Abuse Hx (Audit-C & DAST Scrn) How often the patient has a drink containing alcohol: Never Score: In Men: 4 or > Positive; In Women: 3 or > Positive: 0 Screen Result (Pos requires Nsg. Audit-10AR): Negative In the last yr the pt used illegal drug/Rx for NonMed reason: No Score: Yes response is considered Positive: 0 Screen Result (Positive result requires Nsg. DAST-10): Negative *Physical Exam - Vital Signs Last Vital Signs Temp Pulse Resp BP Pulse Ox 98.1 F 86 20 151/86 99 05/25/20 16:39 05/25/20 16:39 05/25/20 16:39 05/25/20 16:39 05/25/20 16:39 ED Treatment Course - LABORATORY CBC & Chemistry Diagram: 05/25/20 16:55 05/25/20 16:55 - ADDITIONAL ORDERS Additional order review: Laboratory Results 05/25/20 05/25/20 05/25/20 17:45 16:58 16:55 D-Dimer 289 Sodium 136 Potassium 5.0 Chloride 102 Carbon Dioxide 22 Anion Gap 13 Creatinine 4.7 H Est GFR (CKD-EPI)AfAm 11.47 Est GFR (CKD-EPI)NonAf 9.90 POC Glucometer 142 Random Glucose 129 H Calcium 10.4 H Magnesium 2.7 H Total Bilirubin 0.6 AST 23 ALT 35 Alkaline Phosphatase 105 Creatine Kinase 272 H Troponin I 0.10 H Total Protein 7.9 Albumin 4.2 05/25/20 05/25/20 16:58 16:55 RBC 4.80 MCV 88.8 MCHC 33.1 RDW 15.7 H MPV 10.2 Neutrophils % 71.4 D Lymphocytes % 18.9 D Monocytes % 7.7 Eosinophils % 0.9 Basophils % 1.1 POC Glucometer 142 - RADIOLOGY Radiology Studies Ordered: Category Date Time Status CHEST PA & LAT [RAD] Stat Radiology 05/25/20 17:21 Taken - Medications Given in the ED: ED Medications Discontinued Medications Generic Name Dose Route Start Last Admin Trade Name Freq PRN Reason Stop Dose Admin Acetaminophen 975 mg 05/25/20 17:29 05/25/20 17:43 Tylenol - PO 05/25/20 17:30 975 mg ONCE ONE Administration Al Hydroxide/Mg Hydroxide 30 ml 05/25/20 17:29 05/25/20 17:35 Mylanta Oral Suspension - PO 05/25/20 17:30 30 ml ONCE ONE Administration Famotidine/Sodium Chloride 20 mg in 50 mls @ 100 mls/hr 05/25/20 17:29 05/25/20 17:35 Pepcid 20 Mg Premixed Ivpb - IVPB 05/25/20 17:58 100 mls/hr ONCE ONE Administration Ondansetron HCl 4 mg 05/25/20 17:29 05/25/20 17:35 Zofran Injection IVPUSH 05/25/20 17:30 4 mg ONCE ONE Administration Medical Decision Making - Medical Decision Making 05/25/20 19:43 55 y/o F with hx of HTN and DM presenting with nausea and ALONSO. VSS, AF. PE with mild epigastric ttp. DDx includes atelectasis, pna, fluid shifts 2/2 new medications, acs. 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
--- NOTE | 2020-05-25 18:28 | PDOC ---
Attending Attestation - Resident Resident Name: Zoraida Beach - ED Attending Attestation I have performed the following: I have examined & evaluated the patient, The case was reviewed & discussed with the resident, I agree w/resident's findings & plan - HPI HPI: 05/25/20 18:27 [id number] with a significant past medical history of poorly controlled hypertension, newly diabetes (on Metformin), and recent hospitalization for hypertensive emergency () who presents to the ED with 3 days of SOB with exertion/ambulation, relieved with rest, nausea with NBNB clear emesis, lightheadedness, and generalized malaise. Patient notes associated dyspnea upon exertion which is alleviated with rest. As per patient and EMR, she was recently diagnosed with diabetes on admission and discharged on Metformin. No cp or cough, no dizziness, no headache, no neurologic changes; neg covid testing at that time when she was admitted.. Pt was recently admitted for HTN emergency, +trops. EKG showed NSR; sinus arrhythmia with a septal infarct noticed since at least 2014. Echo showed borderline concentric LVH, EF 60%. She was started on Labetolol and Amlodipine in addition to her own home BP meds. Nuclear stress test was done that showed no myocardial ischemia with EF 56%.. She was discharged home with the following medications: Amlodipine, HCTZ/Triamterene, Labetolol, Losartan, Atorvastatin, and Metformin. pt has been taking the medications, but has been feeling the side effects - such as nausea, dizziness; has only been eating small amounts and leo zoltan, could be feeling dehydrated Denies fever, chills, chest pain, palpitation, D, abdominal pain, bladder and bowel problems, focal weakness/paresthesias, leg swelling/pain, rash. No sick contacts or travel. No suspicious food intake Allergies: None Past Medical History/PSH: poorly controlled hypertension, newly diabetes (on Metformin), and recent hospitalization for hypertensive emergency () Social history: Lives with family. No tobacco, ETOH or drug use. Meds: as documented in EMR Family history: noncontributory PMD: Dr. Torres 05/25/20 18:43 - Physicial Exam PE: 05/25/20 18:27 Agree with the resident's HPI and PE as documented in the electronic medical record. NAD, well appearing, EOMI, PERRL, nl conjunctiva, anicteric; neck supple. lungs clear, no respiratory distress, RRR, abdomen soft nontender. obese abdomen, No rebound, no guarding. Back nontender. ESCALERA x4, no focal neuro deficits. No peripheral edema. normal color for ethnicity, WWP. 05/25/20 18:41 05/25/20 18:45 - Medical Decision Making 05/25/20 18:27 Vital Signs Temp Pulse Resp BP Pulse Ox 98.1 F 86 20 151/86 99 05/25/20 16:39 05/25/20 16:39 05/25/20 16:39 05/25/20 16:39 05/25/20 16:39 vitals reviewed, mild HTN, improved from previous admission recently neg cardiac workup, stress testing and echo with normal EF 56-60%. pt admits to poor hydration and eating/drinking in the past 4 days due to nausea. dimer is negative, low suspicion for PE, ruled out with low pretest and now post test probability. labs and lytes with now new NEGRA, Cr 4.6, baseline closer to 1.4 trop 0.1, likely old, given she has been higher before but also with renal insufficiency so can cause trop leak remainder of lytes normal cxr unremarkable, no acute pathology IVF hydration, promote renal perfusion and pt may have some level of dehydration given her side effects from multiple medication inpatient nephro cs admission warranted for continued medical management, for NEGRA and SOB workup, pt's symptoms could also be polypharmacy related 05/25/20 18:31 05/25/20 18:32 05/25/20 18:41 05/25/20 18:43 05/25/20 18:45 Heart Score/ECG Review #1 ECG reviewed & interpreted by me at: 17:50 General ECG Interpretation: Sinus Rhythm, Normal Rate 05/25/20 18:28 EKG normal sinus rhythm 74 bpm, no interval abnormalities, narrow QRS, ST and T wave segments and morphology normal. Nonspecific T wave abnormalities similar to previous EKGs Discharge - Discharge Information Problems reviewed: Yes Clinical Impression/Diagnosis: Malaise, NEGRA (acute kidney injury) Diabetes Qualifiers: Diabetes mellitus type: type 2 Diabetes mellitus skilled nursing insulin use: without skilled nursing use Diabetes mellitus complication status: without complication Qualified Code(s): E11.9 - Type 2 diabetes mellitus without complications Nausea & vomiting Qualifiers: Vomiting type: unspecified Vomiting Intractability: non-intractable Qualified Code(s): R11.2 - Nausea with vomiting, unspecified Condition: Stable - Admission Yes - Follow up/Referral Referrals: Michelle Torres MD [Primary Care Provider] - - Patient Discharge Instructions - Post Discharge Activity
[2020-05-25 18:51] LABS: BLOOD UREA NITROGEN 51.7 mg/dL (7-18)
[2020-05-25] MEDS ORDERED: SODIUM CHLORIDE 1,000 ML IV STA (18:59)
[2020-05-25 19:00] LABS: URINE APPEARANCE CLOUDY; URINE BILIRUBIN NEGATIVE (NEGATIVE); URINE COLOR YELLOW; URINE GLUCOSE (UA) NEGATIVE (NEGATIVE); URINE KETONE NEGATIVE (NEGATIVE); URINE LEUK ESTERASE TRACE (NEGATIVE); URINE NITRITE NEGATIVE (NEGATIVE); URINE PROTEIN NEGATIVE (NEGATIVE); URINE UROBILINOGEN 0.2 mg/dL (0.2-1.0)
--- NOTE | 2020-05-25 19:23 | PN ---
Teaching Attending Note Name of Resident: Jarret Fernando ATTENDING PHYSICIAN STATEMENT I saw and evaluated the patient. I reviewed the resident's note and discussed the case with the resident. I agree with the resident's findings and plan as documented. SUBJECTIVE: Patient is a 55 year old woman with a PMH of HTN and NIDDM presenting with nause a and ALONSO. She was recently discharged after being admitted on 05/18/2020 for hypertensive emergency with SBP in the 220s and elevated troponin. She was discharged on several new medications including Losartan, Amlodipine, HCTZ and Metformin. She reports nausea and vomiting associated with nonradiating epigastric abdominal pain since discharge. Also has increasing ALONSO without chest pain. Says she has had multiple bouts of diarrhea since she started Metformin. No SOB at rest. Denies fever, chills, palpitations, dysuria, cough, or wheezing. Tested negative for COVID-19 on 05/18/2020. Denies alcohol, tobacco or illicit drug use. No sick contacts or recent travels. Family history is unremarkable. OBJECTIVE: Alert Vital Signs Period Temp Pulse Resp BP Sys/Garcia Pulse Ox Last 24 Hr 98.1 F 86 20 151/86 99 HEENT: No Jaundice, eye redness or discharge, PERRLA, EOMI. Normocephalic, atraumatic. External ears are normal and hearing is grossly intact. No nasal discharge. Neck: Supple, nontender. No palpable adenopathy or thyromegaly. No JVD Chest: Good effort. Clear to auscultation and percussion. Heart: Regular. No S3, rub or murmur Abdomen: Not distended, soft, nontender and no HSM. No rebound or guarding. Normal bowel sounds. Ext: Peripheral pulses intact. No leg edema. Skin: Warm and dry. No petechiae, rash or ecchymosis. Neuro: Alert. Oriented x3. CN 2-12 grossly intact. Sensation grossly intact in all four extremities and DTR are symmetric. Psych: Appropriate mood and affect. Good insight. Home Medications Medication Instructions Recorded Losartan Potassium 100 mg PO DAILY 06/15/17 Triamterene/Hydrochlorothiazid 1 each PO DAILY 06/16/17 [Triamterene-Hctz 37.5-25 mg Cp] Amlodipine Besylate [Norvasc -] 10 mg PO DAILY #30 tablet 05/21/20 Aspirin [ASA -] 81 mg PO DAILY #30 tab.chew 05/21/20 Atorvastatin Ca [Lipitor] 80 mg PO HS #30 tablet 05/21/20 Labetalol HCl [Normodyne -] 200 mg PO BID #60 tablet 05/21/20 Metformin HCl [Glucophage] 500 mg PO DAILY #30 tablet 05/21/20 Abnormal Lab Results 05/25/20 05/25/20 05/25/20 16:55 16:55 18:35 RDW 15.7 H BUN 51.7 H Creatinine 4.7 H Random Glucose 129 H Calcium 10.4 H Magnesium 2.7 H Creatine Kinase 272 H Troponin I 0.10 H Ur Random Creatinine 201.0 H Current Medications Generic Name Dose Route Start Last Admin Trade Name Freq PRN Reason Stop Dose Admin Heparin Sodium (Porcine) 5,000 unit 05/25/20 22:00 Heparin - SQ TID JONE Hydralazine HCl 10 mg 05/25/20 20:57 Apresoline Injection - IVPUSH Q6H PRN HYPERTENSION Insulin Aspart 1 vial 05/25/20 22:00 Novolog Vial Sliding Scale - SQ ACHS JONE Protocol ASSESSMENT AND PLAN: 1. New onset CHF?/Rule out ACS - BP improved to 151/86 in the ER. Troponin is elevated at 0.10, but peaked at 0.42 on 05/18/2020 during her last admission. May signal demand ischemia and reduced clearance. EKG shows NSR at 74/minute and QTc [address]-T wave changes. No acute abnormality on CXR. ECHO on 05/18/2020 showed normal LV function with LVEF of 60%. Viral testing for COVID-19 ordered and patient placed on airborne, droplet and contact isolation. Hypercalcemia is unexplained. Will admit to telemetry, get PTH, encourage PO fluids, hold diuretics, trend troponin, get fasting lipids, restrict dietary salt intake, monitor renal function, monitor and replete electrolytes, get daily weight and consult Nephrology. Needs inpatient workup to rule out secondary hypertension - besides obesity. Consult Cardiology. Will continue comprehensive care for all of patients comorbid conditions. 2. Uncontrolled hypertension Will hold diuretics and Losartan. Restart suitable outpatient antihypertensive drugs when clinically appropriate. Subsequently, will revise regimen to ensure [id number] excellent BP control. Patient counseled on the injurious effects of uncontrolled hypertension. Nonpharmacologic measures to control hypertension like weight loss, salt restriction and exercise stressed. Importance of adherence to treatment regimen and attainment of normotension emphasized. 3. DM For now, we will hold Metformin - since it may be partly responsible for diarrhea. Consult Endocrine. Will implement sliding scale insulin regimen. Provide comprehensive diabetes care with patient teaching and counseling about the importance of adherence to prescribed diabetes regimen, euglycemia, eye care and foot care. 4. NEGRA superimposed on CKD? Has multiple risk factors for CKD. Diuresis and diarrheal fluid loss may explain NEGRA. Will get kidney sonogram, hydrate gently, monitor urine output and consult Nephrology. Avoid nephrotoxic agents such as NSAIDS, aminoglycosides, contrast dyes and certain Alternative medicine products. 5. Obesity Counseled on the risks associated with obesity. Will provide patient all the necessary assistance, counseling and positive reinforcement to facilitate weight loss. Consult machine marker. 6. DVT prophylaxis - Heparin 5000u sq tid. 7. Advance directives - Full code
[2020-05-25 19:45] LABS: EPI CELLS 75.6 /uL (0-25.1); URINE RBC 63.8 /uL (0-23.9); URINE WBC 33.7 /uL (0-25.8)
[2020-05-25 19:46] LABS: HYALINE CASTS 1.28 /uL (0-3.1); URINE BACTERIA 1270.4 /uL (0-1359)
[2020-05-25 19:55] LABS: N-TERMINAL BNP 13.1 pg/ml (5-125)
--- NOTE | 2020-05-25 20:41 | HP ---
CHIEF COMPLAINT: Abdominal pain and SOB PCP: HISTORY OF PRESENT ILLNESS: Patient is a 55 y/o F with a significant past medical history of NIDDM and HTN who [facility] due to dyspnea on exertion and abdominal pain. Patient endorses that she was recently discharged from our hospital this past Wednesday where she was treated for Hypertensive Emergency. Patient was discharged on Losartan, Amlodipine, Tramterne/HCTZ, Labetalol, and Metformin. Patient endorses that since starting Metformin, she has experienced GI upset as well as copious amounts of diarrhea. Furthermore, on , patient states she began to feel short of breath especially on exertion. Patient endorses nausea and vomiting associated with nonradiating epigastric abdominal pain. ER course was notable for: (1) Creatinine of 4.7 (2) Trop .10 (3) Calcium 10.4 Recent Travel: PAST MEDICAL HISTORY: As above PAST SURGICAL HISTORY: Tubal ligation, Uterine Artery Embolization Social History: Smoking:Iker Alcohol: Social Drugs: Denies Allergies No Known Allergies Allergy (Verified 05/25/20 16:41) HOME MEDICATIONS: Home Medications Medication Instructions Recorded Losartan Potassium 100 mg PO DAILY 06/15/17 Triamterene/Hydrochlorothiazid 1 each PO DAILY 06/16/17 [Triamterene-Hctz 37.5-25 mg Cp] Amlodipine Besylate [Norvasc -] 10 mg PO DAILY #30 tablet 05/21/20 Aspirin [ASA -] 81 mg PO DAILY #30 tab.chew 05/21/20 Atorvastatin Ca [Lipitor] 80 mg PO HS #30 tablet 05/21/20 Labetalol HCl [Normodyne -] 200 mg PO BID #60 tablet 05/21/20 Metformin HCl [Glucophage] 500 mg PO DAILY #30 tablet 05/21/20 REVIEW OF SYSTEMS CONSTITUTIONAL: Absent: fever, chills, diaphoresis, generalized weakness, malaise, loss of appetite, weight change HEENT: Absent: rhinorrhea, nasal congestion, throat pain, throat swelling, difficulty swallowing, mouth swelling, ear pain, eye pain, visual changes CARDIOVASCULAR: Absent: chest pain, syncope, palpitations, irregular heart rate, lightheadedness, peripheral edema RESPIRATORY: present: dyspnea with exertion GASTROINTESTINAL: present: abdominal pain, nausea, vomiting, diarrhea GENITOURINARY: Absent: dysuria, frequency, urgency, hesitancy, hematuria, flank pain, genital pain MUSCULOSKELETAL: Absent: myalgia, arthralgia, joint swelling, back pain, neck pain SKIN: Absent: rash, itching, pallor HEMATOLOGIC/IMMUNOLOGIC: Absent: easy bleeding, easy bruising, lymphadenopathy, frequent infections ENDOCRINE: Absent: unexplained weight gain, unexplained weight loss, heat intolerance, cold intolerance NEUROLOGIC: Absent: headache, focal weakness or paresthesias, dizziness, unsteady gait, seizure, mental status changes, bladder or bowel incontinence PSYCHIATRIC: Absent: anxiety, depression, suicidal or homicidal ideation, hallucinations. PHYSICAL EXAMINATION Vital Signs - 24 hr 05/25/20 16:39 Temperature 98.1 F Pulse Rate 86 Respiratory 20 Rate Blood Pressure 151/86 O2 Sat by Pulse 99 Oximetry (%) GENERAL: NAD HEAD: Normal with no signs of trauma. EYES: EOMI Sclera Clear EARS, NOSE, THROAT:MMM LUNGS: CTAB HEART: RRR S1S2 ABDOMEN: Obese, NDNT LOWER EXTREMITIES: No CCE NEUROLOGICAL: Cranial nerves II-XII intact. Normal speech PSYCHIATRIC: Cooperative. Good eye contact. Appropriate mood and affect. Laboratory Results - last 24 hr 05/25/20 05/25/20 05/25/20 16:55 16:55 16:58 WBC 7.1 RBC 4.80 Hgb 14.1 Hct 42.6 MCV 88.8 MCH 29.4 MCHC 33.1 RDW 15.7 H Plt Count 313 MPV 10.2 Absolute Neuts (auto) 5.1 Neutrophils % 71.4 D Lymphocytes % 18.9 D Monocytes % 7.7 Eosinophils % 0.9 Basophils % 1.1 Nucleated RBC % 0 D-Dimer Sodium 136 Potassium 5.0 Chloride 102 Carbon Dioxide 22 Anion Gap 13 BUN 51.7 H Creatinine 4.7 H Est GFR (CKD-EPI)AfAm 11.47 Est GFR (CKD-EPI)NonAf 9.90 POC Glucometer 142 Random Glucose 129 H Calcium 10.4 H Magnesium 2.7 H Total Bilirubin 0.6 AST 23 ALT 35 Alkaline Phosphatase 105 Creatine Kinase 272 H Creatine Kinase Index No Result Required. CK-MB (CK-2) < 1.0 Troponin I 0.10 H B-Natriuretic Peptide 13.1 Total Protein 7.9 Albumin 4.2 Urine Color Urine Appearance Urine pH Ur Specific [place] Urine Protein Urine Glucose (UA) Urine Ketones Urine Blood Urine Nitrite Urine Bilirubin Urine Urobilinogen Ur Leukocyte Esterase Urine WBC (Auto) Urine RBC (Auto) Urine Casts (Auto) U Epithel Cells (Auto) Urine Bacteria (Auto) Ur Random Creatinine Ur Random Sodium 05/25/20 05/25/20 05/25/20 17:45 18:35 18:35 WBC RBC Hgb Hct MCV MCH MCHC RDW Plt Count MPV Absolute Neuts (auto) Neutrophils % Lymphocytes % Monocytes % Eosinophils % Basophils % Nucleated RBC % D-Dimer 289 Sodium Potassium Chloride Carbon Dioxide Anion Gap BUN Creatinine Est GFR (CKD-EPI)AfAm Est GFR (CKD-EPI)NonAf POC Glucometer Random Glucose Calcium Magnesium Total Bilirubin AST ALT Alkaline Phosphatase Creatine Kinase Creatine Kinase Index CK-MB (CK-2) Troponin I B-Natriuretic Peptide Total Protein Albumin Urine Color Yellow Urine Appearance Cloudy Urine pH 5.0 Ur Specific [place] 1.012 Urine Protein Negative Urine Glucose (UA) Negative Urine Ketones Negative Urine Blood Negative Urine Nitrite Negative Urine Bilirubin Negative Urine Urobilinogen 0.2 Ur Leukocyte Esterase Trace Urine WBC (Auto) 33.7 Urine RBC (Auto) 63.8 Urine Casts (Auto) 1.28 U Epithel Cells (Auto) 75.6 Urine Bacteria (Auto) 1270.4 Ur Random Creatinine 201.0 H Ur Random Sodium 43 ASSESSMENT/PLAN: Patient is a 55 y/o F with a significant past medical history of NIDDM and HTN who presented to [facility] due to dyspnea on exertion and abdominal pain. #ALONSO. R/O new onset CHF. ? ACS -BNP WNL -Trop slightly elevated. Trend -Echocardiogram from 04/2020--> LVEF 60% -Tele Monitoring -Cardiology Consult -EKG NSR at 74/minute and QTc [address]-T wave changes -Repeat EKG #NEGRA on CKD -Cr 4.7. Was 1.4 on discharge. -Renal Sono -Renal Consult -Avoid nephrotoxic agents -Will hold diuretic meds -Encourage PO intake. Cautious use of IVF as patient endorsing ALONSO. -BMP in am #Hypercalcemia -Calcium 10.4 -PTH level #HTN Amlodipine and Labetalol #NIDDM -Hold metformin. -ISS -Consider alternate agents such as GLP-1 Agonists as positive side effect weight loss (Trulicity, Ozempic) #FEN Encourage PO intake Monitor Electrolytes Sodium Controlled/Diabetic Diet #DVT ppx: HepSQTID #Dispo Tele Visit type - Emergency Visit Emergency Visit: Yes ED Registration Date: 05/25/20 Care time: The patient presented to the Emergency Department on the above date and was hospitalized for further evaluation of their emergent condition. - New Patient This patient is new to me today: Yes Date on this admission: 05/25/20 - Critical Care Critical Care patient: No ATTENDING PHYSICIAN STATEMENT I saw and evaluated the patient. I reviewed the resident's note and discussed the case with the resident. I agree with the resident's findings and plan as documented. SUBJECTIVE: OBJECTIVE: ASSESSMENT AND PLAN:
[2020-05-25] MEDS ORDERED: hydrALAZINE HCL 20 MG/ML VIAL IVPUSH PRN ×2 (20:57→21:04)
[2020-05-25] MEDS ORDERED: LABETALOL HCL 100 MG TABLET (FP) ONE (21:30)
[2020-05-25] MEDS ORDERED: HEPARIN NA (PORCINE) 5,000 UNITS/ML 1ML VIAL ONE (21:30)
[2020-05-25] MEDS ORDERED: ATORVASTATIN CA 80 MG TABLET (FP) ONE (21:30)
[2020-05-25] MEDS ORDERED: INSULIN SLIDING SCALE (NOVOLOG) 1 VIAL SQ ONE (21:31)
[2020-05-25] MEDS: HEPARIN NA (PORCINE) 5,000 UNITS/ML 1ML VIAL SQ SCH (21:40)
[2020-05-25] MEDS: ATORVASTATIN CA 80 MG TABLET (FP) PO SCH (21:41)
[2020-05-25] MEDS: INSULIN SLIDING SCALE (NOVOLOG) 1 VIAL SQ SCH (21:41)
[2020-05-25] MEDS ORDERED: LABETALOL HCL 200 MG TABLET (FP) PO SCH (22:00)
[2020-05-25] MEDS ORDERED: METOCLOPRAMIDE HCL 10 MG TABLET (FP) PO ONE ×2 (23:12→23:43)
[2020-05-26] MEDS ORDERED: HEPARIN NA (PORCINE) 5,000 UNITS/ML 1ML VIAL ONE ×2 (06:17→13:22)
[2020-05-26] MEDS: INSULIN SLIDING SCALE (NOVOLOG) 1 VIAL SQ SCH ×4 (06:37→21:48)
[2020-05-26] MEDS: HEPARIN NA (PORCINE) 5,000 UNITS/ML 1ML VIAL SQ SCH ×3 (06:38→21:46)
[2020-05-26 07:55] LABS: HEMATOCRIT 40.6 % (32.4-45.2); MCH 28.7 pg (25.7-33.7); MCHC 32.1 g/dl (32.0-36.0); MEAN CELL VOLUME 89.4 fl (80-96); MEAN PLT VOLUME 10.1 fl (7.5-11.1); PLATELET COUNT 276 K/MM3 (134-434); RBC 4.54 M/mm3 (3.60-5.2); RDW 16.1 % (11.6-15.6); WHITE BLOOD COUNT 6.4 K/mm3 (4.0-10.0)
[2020-05-26 08:03] LABS: INR 1.03 (0.83-1.09); PROTHROMBIN TIME (PATIENT) 12.1 SEC (9.7-13.0)
[2020-05-26 08:06] LABS: ACTIVATED PTT 36.5 SECONDS (25.2-36.5)
[2020-05-26 08:10] LABS: ALBUMIN 4.3 g/dl (3.4-5.0); BILIRUBIN,TOTAL 0.6 mg/dL (0.2-1); BLOOD UREA NITROGEN 47.3 mg/dL (7-18); CALCIUM 10.4 mg/dL (8.5-10.1); CREATININE 4.4 mg/dL (0.55-1.3); PHOSPHOROUS 4.6 mg/dL (2.5-4.9); POTASSIUM 4.5 mmol/L (3.5-5.1); TOT PROT 7.9 g/dl (6.4-8.2)
--- NOTE | 2020-05-26 08:26 | PN ---
Progress Note, Physician Chief Complaint: Seen and examined in ED. Dyspnea is resolving. Nausea is improved and no emesis over night. COVID PCR pending but tested negative previously History of Present Illness: Patient is a 55 y/o F with a significant past medical history of NIDDM and HTN who presented to [facility] due to dyspnea on exertion and abdominal pain. - Current Medication List Current Medications: Active Medications Amlodipine Besylate (Norvasc -) 10 mg PO DAILY [facility] Aspirin (Asa -) 81 mg PO DAILY JONE Atorvastatin Calcium (Lipitor -) 80 mg PO HS [facility] Last Admin: 05/25/20 21:41 Dose: 80 mg Documented by: Heparin Sodium (Porcine) (Heparin -) 5,000 unit SQ TID JONE Last Admin: 05/26/20 06:38 Dose: 5,000 unit Documented by: Hydralazine HCl (Apresoline Injection -) 5 mg IVPUSH Q6H PRN PRN Reason: HYPERTENSION Insulin Aspart (Novolog Vial Sliding Scale -) 1 vial SQ [facility]; Protocol Last Admin: 05/26/20 06:37 Dose: Not Given Documented by: Labetalol HCl (Normodyne -) 200 mg PO BID [facility] - Objective Vital Signs: Vital Signs Temperature 97.9 F 05/26/20 06:00 Pulse Rate 81 05/26/20 06:00 Respiratory Rate 15 05/26/20 06:00 Blood Pressure 111/73 05/26/20 06:00 O2 Sat by Pulse Oximetry (%) 99 05/26/20 06:00 Constitutional: Yes: Well Nourished, No Distress, Calm Eyes: Yes: WNL, Conjunctiva Clear, EOM Intact HENT: Yes: WNL, Atraumatic, Normocephalic Neck: Yes: WNL, Supple, Trachea Midline Cardiovascular: Yes: WNL, Regular Rate and Rhythm Respiratory: Yes: Regular, CTA Bilaterally, Diminished (at bases) Gastrointestinal: Yes: Normal Bowel Sounds, Soft, Abdomen, Obese ...Rectal Exam: Yes: Deferred Genitourinary: Yes: WNL Breast(s): Yes: WNL Musculoskeletal: Yes: WNL Extremities: Yes: WNL Edema: Yes Edema: LLE: Trace, RLE: Trace Peripheral Pulses WNL: Yes Peripheral Pulses: Left Radial: 2+, Right Radial: 2+, Left Doralis Pedis: 2+, Right Dorsalis Pedis: 2+, Left Femoral: 2+, Right Femoral: 2+ Neurological: Yes: WNL, Alert, Oriented ...Motor Strength: WNL Psychiatric: Yes: WNL Labs: CBC, BMP 05/26/20 07:00 05/26/20 07:00 INR, PTT INR 1.03 (0.83-1.09) 05/26/20 07:00 - ....Imaging Chest X-ray: Image Reviewed (CXR: no effusions/infiltrates) Ultrasound: Report Reviewed (Kenyatta;:both kisdney unremarkable) Problem List - Problems (1) HTN (hypertension) Assessment/Plan: normotensive c/w labetolol, hydralazine if needed avoid BRITNI/ARB with elevated Cr Code(s): I10 - ESSENTIAL (PRIMARY) HYPERTENSION (2) Shortness of breath Assessment/Plan: resolving maintain SPO2 > 88% supplemental O2 prn Code(s): R06.02 - SHORTNESS OF BREATH (3) Abdominal pain Assessment/Plan: reolved US umarkable LFts normal Code(s): R10.9 - UNSPECIFIED ABDOMINAL PAIN (4) Prophylactic measure Assessment/Plan: FEN Fluids: no additional IVF Electrolytes: monitor & replete as needed Nutrition: low sodium diet DVT moderate risk sq heparin Dispo Maintain as inpatient full code discharge planning Code(s): Z29.9 - ENCOUNTER FOR PROPHYLACTIC MEASURES, UNSPECIFIED (5) Person under investigation for COVID-19 Assessment/Plan: COVID Suspicion low On RA strict airborne/droplet precautions until resulted Code(s): Z20.828 - CONTACT W AND EXPOSURE TO OTH VIRAL COMMUNICABLE DISEASES (6) Diarrhea Assessment/Plan: resolved if returns send for Cdif Code(s): R19.7 - DIARRHEA, UNSPECIFIED (7) Diabetes Assessment/Plan: BGM AC/HS with novolog sliding scale diabetic diet Code(s): E11.9 - TYPE 2 DIABETES MELLITUS WITHOUT COMPLICATIONS Qualifiers: Diabetes mellitus type: type 2 Diabetes mellitus senior care insulin use: 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 pending in setting of elevated Cr will remain elevated no c/o chest pain c/t trend Code(s): R74.8 - ABNORMAL LEVELS OF OTHER SERUM ENZYMES Visit type - Emergency Visit Emergency Visit: Yes ED Registration Date: 05/25/20 Care time: The patient presented to the Emergency Department on the above date and was hospitalized for further evaluation of their emergent condition. - New Patient This patient is new to me today: Yes Date on this admission: 05/26/20 - Critical Care Critical Care patient: No - Discharge Referral Referred to [facility] Med [facility] No
[2020-05-26] MEDS ORDERED: ASPIRIN 81 MG CHEWABLE TABLETS ONE (09:47)
[2020-05-26] MEDS ORDERED: LABETALOL HCL 100 MG TABLET (FP) ONE (09:47)
--- NOTE | 2020-05-26 10:06 | EKG ---
Test Reason : Blood Pressure : / mmHG Vent. Rate : 074 BPM Atrial Rate : 074 BPM P-R Int : 186 ms QRS Dur : 074 ms QT Int : 368 ms P-R-T Axes : 052 -04 051 degrees QTc Int : 408 ms NORMAL SINUS RHYTHM SEPTAL INFARCT (CITED ON OR BEFORE 03-APR-2015) ABNORMAL ECG WHEN COMPARED WITH ECG OF 20-MAY-2020 09:35, NO SIGNIFICANT CHANGE WAS FOUND Confirmed by MARCELLA DE JESUS, PAO ([id number]) on 05/26/2020 10:06:13 AM Referred By: Confirmed By:PAO NARANJO MD
[2020-05-26] MEDS: LABETALOL HCL 100 MG TABLET (FP) PO SCH ×2 (10:15→21:46)
[2020-05-26] MEDS: ASPIRIN 81 MG CHEWABLE TABLETS PO SCH (10:16)
[2020-05-26] MEDS: amLODIPine BESYLATE 10 MG TABLET (FP) PO SCH (10:16)
--- NOTE | 2020-05-26 10:24 | CON.CARD ---
Consult Consult Specialty:: Cardiology (coverage for Dr. Aries Sommers) Referred by:: Hospitalist service Reason for Consultation:: Cardiac evaluation - History of Present Illness Chief Complaint: Nausea, dyspnea on exertion History of Present Illness: Patient is a 55 year old female (seen by Dr. Sommers recently during h ospitalization) with underlying history of DM, HTN, hypercholesterolemia and exogenous obesity who presented to ED with dyspnea on exertion, nausea and abdominal discomfort. She was reported as having nausea and vomiting with epigastric discomfort. Cr was found to be elevated to 4.5 from 1.4 last visit to the hospital on 05/21/20. She denies chest pain or palpitations. She denies fever or chills. She denies dizziness at this time. She denies chest pain at this time. She states that she has been drinking fluids. 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: Other (headache (chronic)) Cardio/Vascular: Yes: HTN, Hyperlipdemia, Other ...LMP: 07/07/15 - Past Surgical History Past Surgical History: Yes: Tubal Ligation - Alcohol/Substance Use Hx Alcohol Use: Yes - Smoking History Smoking history: Unknown if ever smoked Have you smoked in the past 12 months: No Aproximately how many cigarettes per day: 0 Home Medications - Allergies Allergies/Adverse Reactions: Allergies Allergy/AdvReac Type Severity Reaction Status Date / Time No Known Allergies Allergy Verified 05/25/20 16:41 - Home Medications Home Medications: Ambulatory Orders Losartan Potassium 100 mg PO DAILY 06/15/17 Triamterene/Hydrochlorothiazid [Triamterene-Hctz 37.5-25 mg Cp] 1 each PO DAILY 06/16/17 Amlodipine Besylate [Norvasc -] 10 mg PO DAILY #30 tablet 05/21/20 Aspirin [ASA -] 81 mg PO DAILY #30 tab.chew 05/21/20 Atorvastatin Ca [Lipitor] 80 mg PO HS #30 tablet 05/21/20 Labetalol HCl [Normodyne -] 200 mg PO BID #60 tablet 05/21/20 Metformin HCl [Glucophage] 500 mg PO DAILY #30 tablet 05/21/20 Family Medical History Other Family History: hypercholesterolemia Review of Systems - Review of Systems Constitutional: denies: Chills, Fever Cardiovascular: reports: Shortness of Breath. denies: Chest Pain, Palpitations Respiratory: reports: SOB, SOB on Exertion. denies: Cough, Hemoptysis, Orthopnea, PND, Wheezing Gastrointestinal: reports: Abdominal Pain, Diarrhea, Nausea, Vomiting. denies: Constipation, Melena, Rectal Bleeding Genitourinary: denies: Dysuria, Hematuria Musculoskeletal: denies: Back Pain, Joint Pain Neurological: reports: Headache. denies: Dizziness, Seizure, Syncope Vital Signs: Vital Signs Temperature 98.2 F 05/26/20 08:15 Pulse Rate 74 05/26/20 08:15 Respiratory Rate 18 05/26/20 08:15 Blood Pressure 121/75 05/26/20 08:15 O2 Sat by Pulse Oximetry (%) 100 05/26/20 08:15 Eyes: Yes: PERRL HENT: Yes: Atraumatic Neck: Yes: Supple Respiratory: Yes: CTA Bilaterally Gastrointestinal: Yes: Normal Bowel Sounds, Soft. No: Tenderness Cardiovascular: Yes: Regular Rate and Rhythm JVD: No PMI: Non-Displaced Heart Sounds: Yes: S1, S2. No: Gallop Murmur: No: Systolic Murmur Edema: No - Other Data Labs, Other Data: CBC, BMP 05/26/20 07:00 05/26/20 07:00 INR, PTT INR 1.03 (0.83-1.09) 05/26/20 07:00 Troponin, BNP 05/25/20 16:55 Troponin I 0.10 H B-Natriuretic Peptide 13.1 Laboratory Results - last 24 hr 05/25/20 05/25/20 05/25/20 16:55 16:55 16:58 WBC 7.1 RBC 4.80 Hgb 14.1 Hct 42.6 MCV 88.8 MCH 29.4 MCHC 33.1 RDW 15.7 H Plt Count 313 MPV 10.2 Absolute Neuts (auto) 5.1 Neutrophils % 71.4 D Lymphocytes % 18.9 D Monocytes % 7.7 Eosinophils % 0.9 Basophils % 1.1 Nucleated RBC % 0 PT with INR INR PTT (Actin FS) D-Dimer Sodium 136 Potassium 5.0 Chloride 102 Carbon Dioxide 22 Anion Gap 13 BUN 51.7 H Creatinine 4.7 H Est GFR (CKD-EPI)AfAm 11.47 Est GFR (CKD-EPI)NonAf 9.90 POC Glucometer 142 Random Glucose 129 H Calcium 10.4 H Phosphorus Magnesium 2.7 H Ferritin Total Bilirubin 0.6 AST 23 ALT 35 Alkaline Phosphatase 105 LD Total Creatine Kinase 272 H Creatine Kinase Index No Result Required. CK-MB (CK-2) < 1.0 Troponin I 0.10 H C-Reactive Protein B-Natriuretic Peptide 13.1 Total Protein 7.9 Albumin 4.2 Urine Color Urine Appearance Urine pH Ur Specific [place] Urine Protein Urine Glucose (UA) Urine Ketones Urine Blood Urine Nitrite Urine Bilirubin Urine Urobilinogen Ur Leukocyte Esterase Urine WBC (Auto) Urine RBC (Auto) Urine Casts (Auto) U Epithel Cells (Auto) Urine Bacteria (Auto) Ur Random Creatinine Ur Random Sodium 05/25/20 05/25/20 05/25/20 17:45 18:35 18:35 WBC RBC Hgb Hct MCV MCH MCHC RDW Plt Count MPV Absolute Neuts (auto) Neutrophils % Lymphocytes % Monocytes % Eosinophils % Basophils % Nucleated RBC % PT with INR INR PTT (Actin FS) D-Dimer 289 Sodium Potassium Chloride Carbon Dioxide Anion Gap BUN Creatinine Est GFR (CKD-EPI)AfAm Est GFR (CKD-EPI)NonAf POC Glucometer Random Glucose Calcium Phosphorus Magnesium Ferritin Total Bilirubin AST ALT Alkaline Phosphatase LD Total Creatine Kinase Creatine Kinase Index CK-MB (CK-2) Troponin I C-Reactive Protein B-Natriuretic Peptide Total Protein Albumin Urine Color Yellow Urine Appearance Cloudy Urine pH 5.0 Ur Specific [place] 1.012 Urine Protein Negative Urine Glucose (UA) Negative Urine Ketones Negative Urine Blood Negative Urine Nitrite Negative Urine Bilirubin Negative Urine Urobilinogen 0.2 Ur Leukocyte Esterase Trace Urine WBC (Auto) 33.7 Urine RBC (Auto) 63.8 Urine Casts (Auto) 1.28 U Epithel Cells (Auto) 75.6 Urine Bacteria (Auto) 1270.4 Ur Random Creatinine 201.0 H Ur Random Sodium 43 05/25/20 05/26/20 05/26/20 21:36 06:32 07:00 WBC 6.4 RBC 4.54 Hgb 13.0 Hct 40.6 MCV 89.4 MCH 28.7 MCHC 32.1 RDW 16.1 H Plt Count 276 MPV 10.1 Absolute Neuts (auto) Neutrophils % Lymphocytes % Monocytes % Eosinophils % Basophils % Nucleated RBC % PT with INR INR PTT (Actin FS) D-Dimer Sodium Potassium Chloride Carbon Dioxide Anion Gap BUN Creatinine Est GFR (CKD-EPI)AfAm Est GFR (CKD-EPI)NonAf POC Glucometer 114 123 Random Glucose Calcium Phosphorus Magnesium Ferritin Total Bilirubin AST ALT Alkaline Phosphatase LD Total Creatine Kinase Creatine Kinase Index CK-MB (CK-2) Troponin I C-Reactive Protein B-Natriuretic Peptide Total Protein Albumin Urine Color Urine Appearance Urine pH Ur Specific [place] Urine Protein Urine Glucose (UA) Urine Ketones Urine Blood Urine Nitrite Urine Bilirubin Urine Urobilinogen Ur Leukocyte Esterase Urine WBC (Auto) Urine RBC (Auto) Urine Casts (Auto) U Epithel Cells (Auto) Urine Bacteria (Auto) Ur Random Creatinine Ur Random Sodium 05/26/20 05/26/20 07:00 07:00 WBC RBC Hgb Hct MCV MCH MCHC RDW Plt Count MPV Absolute Neuts (auto) Neutrophils % Lymphocytes % Monocytes % Eosinophils % Basophils % Nucleated RBC % PT with INR 12.10 INR 1.03 PTT (Actin FS) 36.5 D-Dimer Sodium 137 Potassium 4.5 Chloride 104 Carbon Dioxide 26 Anion Gap 8 BUN 47.3 H Creatinine 4.4 H Est GFR (CKD-EPI)AfAm 12.42 Est GFR (CKD-EPI)NonAf 10.72 POC Glucometer Random Glucose 121 H Calcium 10.4 H Phosphorus 4.6 Magnesium 3.0 H Ferritin 103.4 Total Bilirubin 0.6 AST 16 ALT 32 Alkaline Phosphatase 104 LD Total 156 Creatine Kinase Creatine Kinase Index CK-MB (CK-2) Troponin I C-Reactive Protein 1.1 H B-Natriuretic Peptide Total Protein 7.9 Albumin 4.3 Urine Color Urine Appearance Urine pH Ur Specific [place] Urine Protein Urine Glucose (UA) Urine Ketones Urine Blood Urine Nitrite Urine Bilirubin Urine Urobilinogen Ur Leukocyte Esterase Urine WBC (Auto) Urine RBC (Auto) Urine Casts (Auto) U Epithel Cells (Auto) Urine Bacteria (Auto) Ur Random Creatinine Ur Random Sodium Normal sinus rhythm with ?septal infarct Imaging - Results Chest X-ray: Report Reviewed (Unremarkable) Ultrasound: Report Reviewed (Renal US unremarkable) EKG: Report Reviewed Problem List - Problems (1) NEGRA (acute kidney injury) Code(s): N17.9 - ACUTE KIDNEY FAILURE, UNSPECIFIED (2) Xxmtq-dq-tstnutr kidney injury Code(s): N17.9 - ACUTE KIDNEY FAILURE, UNSPECIFIED; N18.9 - CHRONIC KIDNEY DISEASE, UNSPECIFIED (3) Diabetes Code(s): E11.9 - TYPE 2 DIABETES MELLITUS WITHOUT COMPLICATIONS Qualifiers: Diabetes mellitus type: type 2 Diabetes mellitus halfway insulin use: without halfway use Diabetes mellitus complication status: without complication Qualified Code(s): E11.9 - Type 2 diabetes mellitus without complications (4) HTN (hypertension) Code(s): I10 - ESSENTIAL (PRIMARY) HYPERTENSION (5) Hypercalcemia Code(s): E83.52 - HYPERCALCEMIA (6) Elevated troponin Code(s): R74.8 - ABNORMAL LEVELS OF OTHER SERUM ENZYMES Assessment/Plan 1. Acute on CKD, worsened Cr, etiology to be determined 2. HTN 3. Hypercholesterolemia 4. DM 5. Exogenous obesity 6. Demand ischema PLAN: 1. Labetalol 200 mg BID and was given Amlodipine 10 mg QD (patient states that she had used Amlodipine previously and was stopped due to pedal edema). Avoid ACEI or ARB for now due to increase in Cr (patient had been on Losartan) 2. Hydralazine can be used for added BP control as needed 3. Atorvastatin currently at 80 mg QHS (follow lipid panel) 4. Further management for DM to follow 5. Follow renal function. Renal input to follow 6. Trend troponin Further plans are to follow Dr. Sommers to resume care Wednesday Dionte Alfredo MD
--- NOTE | 2020-05-26 16:03 | CON.NEP ---
Consult Consult Specialty:: nephrology Reason for Consultation:: negra - History of Present Illness Chief Complaint: dyspnea History of Present Illness: This is a 55 year old woman with a history of HTN, obesity, dm and ckd who presentred with dyspnea on exertion, nausea and weakness. She was discharged 5 days ago after being admitted with a hypertensive emergency and having be discovered to be diabetic. She was started on metformin and her bp was cont rolled and she was discharged. Has no other new meds. Does not smoke. Has not used any illicit substances. 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 HAND: Yes: Other (headache (chronic)) Cardio/Vascular: Yes: HTN, Hyperlipdemia, Other ...LMP: 07/07/15 Endocrine: Yes: Diabetes Mellitus - Past Surgical History Past Surgical History: Yes: Tubal Ligation - Alcohol/Substance Use Hx Alcohol Use: Yes - Smoking History Smoking history: Unknown if ever smoked Have you smoked in the past 12 months: No Aproximately how many cigarettes per day: 0 Home Medications - Allergies Allergies/Adverse Reactions: Allergies Allergy/AdvReac Type Severity Reaction Status Date / Time No Known Allergies Allergy Verified 05/25/20 16:41 - Home Medications Home Medications: Ambulatory Orders Losartan Potassium 100 mg PO DAILY 06/15/17 Triamterene/Hydrochlorothiazid [Triamterene-Hctz 37.5-25 mg Cp] 1 each PO DAILY 06/16/17 Amlodipine Besylate [Norvasc -] 10 mg PO DAILY #30 tablet 05/21/20 Aspirin [ASA -] 81 mg PO DAILY #30 tab.chew 05/21/20 Atorvastatin Ca [Lipitor] 80 mg PO HS #30 tablet 05/21/20 Labetalol HCl [Normodyne -] 200 mg PO BID #60 tablet 05/21/20 Metformin HCl [Glucophage] 500 mg PO DAILY #30 tablet 05/21/20 Family Medical History Family History: Unremarkable Review of Systems - Review of Systems Constitutional: reports: Weakness Eyes: reports: No Symptoms HENT: reports: No Symptoms Neck: reports: No Symptoms Cardiovascular: reports: Shortness of Breath Respiratory: reports: SOB Gastrointestinal: reports: No Symptoms Genitourinary: reports: No Symptoms Breasts: reports: No Symptoms Reported Musculoskeletal: reports: No Symptoms Neurological: reports: No Symptoms Endocrine: reports: No Symptoms Hematology/Lymphatic: reports: No Symptoms Nephrology Consult - Height Height: 5 ft 6 in - Weight Weight: 246 lb 14.684 oz - BMI Body Mass Index (BMI): 39.8 - Lab Results CBC,BMP: CBC, BMP 05/26/20 07:00 05/26/20 07:00 Anion Gap: Anion Gap Anion Gap 8 MMOL/L (8-16) 05/26/20 07:00 - Imaging Chest X-ray: Report Reviewed Ultrasound: Report Reviewed - Physical Examination Vital Signs: Vital Signs Temperature 98.2 F 05/26/20 13:52 Pulse Rate 81 05/26/20 13:52 Respiratory Rate 18 05/26/20 13:52 Blood Pressure 102/62 05/26/20 13:52 O2 Sat by Pulse Oximetry (%) 99 05/26/20 13:52 Assessment/Plan NEGRA with no protein in urine and fena of 0.69- likely prerenal state PLAN would hydrate and observe cardiology evaluating pt sonogram already done and negative avoid nephrotoxins and hypotension agree to hold acei MV
[2020-05-26 18:34] VITALS: BMI 38.9
[2020-05-26] MEDS: ATORVASTATIN CA 80 MG TABLET (FP) PO SCH (21:46)
[2020-05-26] MEDS: SODIUM CHLORIDE 1,000 ML IV SCH (21:48)
[2020-05-27] MEDS: HEPARIN NA (PORCINE) 5,000 UNITS/ML 1ML VIAL SQ SCH ×3 (06:02→21:11)
[2020-05-27] MEDS: INSULIN SLIDING SCALE (NOVOLOG) 1 VIAL SQ SCH ×2 (06:44→11:54)
[2020-05-27] MEDS: SODIUM CHLORIDE 1,000 ML IV SCH (06:52)
--- NOTE | 2020-05-27 07:34 | PN ---
Progress Note, Physician History of Present Illness: Patient is a 55 year old female (seen by Dr. Sommers recently during hospitalization) with underlying history of DM, HTN, hypercholesterolemia and exogenous obesity who presented to ED with dyspnea on exertion, nausea and abdominal discomfort. She was reported as having nausea and vomiting with epigastric discomfort. Cr was found to be elevated to 4.5 from 1.4 last visit to the hospital on 05/21/20. She denies chest pain or palpitations. She denies fever or chills. She denies dizziness at this time. She denies chest pain at this time. She states that she has been drinking fluids. - Current Medication List Current Medications: Active Medications Amlodipine Besylate (Norvasc -) 10 mg PO DAILY [facility] Last Admin: 05/26/20 10:16 Dose: 10 mg Documented by: Aspirin (Asa -) 81 mg PO DAILY [facility] Last Admin: 05/26/20 10:16 Dose: 81 mg Documented by: Atorvastatin Calcium (Lipitor -) 80 mg PO HS [facility] Last Admin: 05/26/20 21:46 Dose: 80 mg Documented by: Heparin Sodium (Porcine) (Heparin -) 5,000 unit SQ TID [facility] Last Admin: 05/27/20 06:02 Dose: 5,000 unit Documented by: Hydralazine HCl (Apresoline Injection -) 5 mg IVPUSH Q6H PRN PRN Reason: HYPERTENSION Sodium Chloride (Normal Saline -) 1,000 mls @ 100 mls/hr IV ASDIR [facility] Last Admin: 05/27/20 06:52 Dose: 100 mls/hr Documented by: Insulin Aspart (Novolog Vial Sliding Scale -) 1 vial SQ ACHS [facility]; Protocol Last Admin: 05/27/20 06:44 Dose: Not Given Documented by: Labetalol HCl (Normodyne -) 200 mg PO BID [facility] Last Admin: 05/26/20 21:46 Dose: 200 mg Documented by: - Objective Vital Signs: Vital Signs Temperature 97.9 F 05/27/20 05:00 Pulse Rate 76 05/27/20 05:00 Respiratory Rate 16 05/27/20 05:00 Blood Pressure 120/75 05/27/20 05:00 O2 Sat by Pulse Oximetry (%) 100 05/26/20 18:15 Eyes: Yes: WNL, Conjunctiva Clear, EOM Intact HENT: Yes: WNL, Atraumatic, Normocephalic Neck: Yes: WNL, Supple, Trachea Midline Cardiovascular: Yes: WNL, Regular Rate and Rhythm Respiratory: Yes: WNL, Regular, CTA Bilaterally Gastrointestinal: Yes: WNL, Normal Bowel Sounds Genitourinary: Yes: WNL Musculoskeletal: Yes: WNL Extremities: Yes: WNL Edema: No Integumentary: Yes: WNL Neurological: Yes: WNL, Alert, Oriented ...Motor Strength: WNL Psychiatric: Yes: WNL Labs: CBC, BMP 05/26/20 07:00 05/26/20 07:00 INR, PTT INR 1.03 (0.83-1.09) 05/26/20 07:00 Problem List - Problems (1) NEGRA (acute kidney injury) Code(s): N17.9 - ACUTE KIDNEY FAILURE, UNSPECIFIED (2) Abdominal pain Code(s): R10.9 - UNSPECIFIED ABDOMINAL PAIN (3) Qhipl-gk-dzbpryo kidney injury Code(s): N17.9 - ACUTE KIDNEY FAILURE, UNSPECIFIED; N18.9 - CHRONIC KIDNEY DISEASE, UNSPECIFIED (4) Diabetes Code(s): E11.9 - TYPE 2 DIABETES MELLITUS WITHOUT COMPLICATIONS Qualifiers: Diabetes mellitus type: type 2 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: without longterm use Diabetes mellitus complication status: without complication Qualified Code(s): E11.9 - Type 2 diabetes mellitus without complications (5) Diarrhea Code(s): R19.7 - DIARRHEA, UNSPECIFIED (6) HTN (hypertension) Code(s): I10 - ESSENTIAL (PRIMARY) HYPERTENSION (7) Hypercalcemia Code(s): E83.52 - HYPERCALCEMIA (8) Malaise Code(s): R53.81 - OTHER MALAISE (9) Nausea & vomiting Code(s): R11.2 - NAUSEA WITH VOMITING, UNSPECIFIED Qualifiers: Vomiting type: unspecified Vomiting Intractability: non-intractable Qualified Code(s): R11.2 - Nausea with vomiting, unspecified (10) Person under investigation for COVID-19 Code(s): Z20.828 - CONTACT W AND EXPOSURE TO OTH VIRAL COMMUNICABLE DISEASES (11) Prophylactic measure Code(s): Z29.9 - ENCOUNTER FOR PROPHYLACTIC MEASURES, UNSPECIFIED (12) Shortness of breath Code(s): R06.02 - SHORTNESS OF BREATH (13) Ankle sprain Code(s): S93.409A - SPRAIN OF UNSP LIGAMENT OF UNSPECIFIED ANKLE, INIT ENCNTR (14) Bronchitis Code(s): J40 - BRONCHITIS, NOT SPECIFIED ACUTE OR CHRONIC (15) Chest pain Code(s): R07.9 - CHEST PAIN, UNSPECIFIED Qualifiers: Chest pain type: unspecified Qualified Code(s): R07.9 - Chest pain, unspecified (16) Costochondral chest pain Code(s): R07.1 - CHEST PAIN ON BREATHING (17) Cough Code(s): R05 - COUGH (18) EKG abnormality Code(s): R94.31 - ABNORMAL ELECTROCARDIOGRAM [ECG] [EKG] (19) Elevated troponin Code(s): R74.8 - ABNORMAL LEVELS OF OTHER SERUM ENZYMES (20) Epicondylitis, lateral, left Code(s): M77.12 - LATERAL EPICONDYLITIS, LEFT ELBOW (21) Headache Code(s): R51 - HEADACHE (22) Hypertensive emergency Code(s): I16.1 - HYPERTENSIVE EMERGENCY (23) Left ankle injury Code(s): S99.912A - UNSPECIFIED INJURY OF LEFT ANKLE, INITIAL ENCOUNTER Qualifiers: Encounter type: initial encounter Qualified Code(s): S99.912A - Unspecified injury of left ankle, initial encounter (24) Left anterior shoulder pain Code(s): M25.512 - PAIN IN LEFT SHOULDER (25) Proteinuria Code(s): R80.9 - PROTEINURIA, UNSPECIFIED (26) Fibroid uterus Code(s): D25.9 - LEIOMYOMA OF UTERUS, UNSPECIFIED (27) Hemorrhagic cyst Code(s): CIL1751 - (28) Hyperlipidemia Code(s): E78.5 - HYPERLIPIDEMIA, UNSPECIFIED (29) Sleep apnea Code(s): G47.30 - SLEEP APNEA, UNSPECIFIED Assessment/Plan 1. Acute on CKD, worsened Cr, etiology to be determined 2. HTN 3. Hypercholesterolemia 4. DM 5. Exogenous obesity 6. Demand ischema 7. ECHO lvh nl EF PLAN: 1. Labetalol 200 mg BID and was given Amlodipine 10 mg QD (patient states that she had used Amlodipine previously and was stopped due to pedal edema). Avoid ACEI or ARB for now due to increase in Cr (patient had been on Losartan) 2. Hydralazine can be used for added BP control as needed 3. Atorvastatin currently at 80 mg QHS (follow lipid panel) 4. Further management for DM to follow 5. Follow renal function. Renal input to follow 6. Trend troponin
[2020-05-27 08:22] LABS: BASO % 0.7 % (0-2.0); EOS % 4.2 % (0-4.5); HEMATOCRIT 37.8 % (32.4-45.2); HEMOGLOBIN 12.3 GM/dL (10.7-15.3); LYMPH % 36.5 % (8-40); MCH 28.6 pg (25.7-33.7); MCHC 32.4 g/dl (32.0-36.0); MEAN CELL VOLUME 88.2 fl (80-96); MEAN PLT VOLUME 10.1 fl (7.5-11.1); MONO % 9.9 % (3.8-10.2); NEUT % 48.7 % (42.8-82.8); PLATELET COUNT 274 K/MM3 (134-434); RBC 4.29 M/mm3 (3.60-5.2); RDW 15.4 % (11.6-15.6); WHITE BLOOD COUNT 5.7 K/mm3 (4.0-10.0)
[2020-05-27 08:33] LABS: INR 1.03 (0.83-1.09); PROTHROMBIN TIME (PATIENT) 12.2 SEC (9.7-13.0)
--- NOTE | 2020-05-27 08:37 | PN ---
Progress Note, Physician Chief Complaint: Seen and examined in ED. Ambulating in room without difficulty. No futher n/v. Started on IVF overnight. COVID PCR negative History of Present Illness: Patient is a 55 y/o F with a significant past medical history of NIDDM and HTN who presented to [facility] due to dyspnea on exertion and abdominal pain. - Current Medication List Current Medications: Active Medications Amlodipine Besylate (Norvasc -) 10 mg PO DAILY [facility] Last Admin: 05/26/20 10:16 Dose: 10 mg Documented by: Aspirin (Asa -) 81 mg PO DAILY [facility] Last Admin: 05/26/20 10:16 Dose: 81 mg Documented by: Atorvastatin Calcium (Lipitor -) 80 mg PO HS [facility] Last Admin: 05/26/20 21:46 Dose: 80 mg Documented by: Heparin Sodium (Porcine) (Heparin -) 5,000 unit SQ TID [facility] Last Admin: 05/27/20 06:02 Dose: 5,000 unit Documented by: Hydralazine HCl (Apresoline Injection -) 5 mg IVPUSH Q6H PRN PRN Reason: HYPERTENSION Sodium Chloride (Normal Saline -) 1,000 mls @ 100 mls/hr IV ASDIR [facility] Last Admin: 05/27/20 06:52 Dose: 100 mls/hr Documented by: Insulin Aspart (Novolog Vial Sliding Scale -) 1 vial SQ ACHS [facility]; Protocol Last Admin: 05/27/20 06:44 Dose: Not Given Documented by: Labetalol HCl (Normodyne -) 200 mg PO BID [facility] Last Admin: 05/26/20 21:46 Dose: 200 mg Documented by: - Objective Vital Signs: Vital Signs Temperature 97.9 F 05/27/20 05:00 Pulse Rate 76 05/27/20 05:00 Respiratory Rate 16 05/27/20 05:00 Blood Pressure 120/75 05/27/20 05:00 O2 Sat by Pulse Oximetry (%) 100 05/26/20 18:15 Additional Findings/Remarks: Constitutional: Yes: Well Nourished, No Distress, Calm Eyes: Yes: WNL, Conjunctiva Clear, EOM Intact HENT: Yes: WNL, Atraumatic, Normocephalic Neck: Yes: WNL, Supple, Trachea Midline Cardiovascular: Yes: WNL, Regular Rate and Rhythm Respiratory: Yes: Regular, CTA Bilaterally, Diminished (at bases) Gastrointestinal: Yes: Normal Bowel Sounds, Soft, Abdomen, Obese ...Rectal Exam: Yes: Deferred Genitourinary: Yes: WNL Breast(s): Yes: WNL Musculoskeletal: Yes: WNL Extremities: Yes: WNL Edema: Yes Edema: LLE: Trace, RLE: Trace Peripheral Pulses WNL: Yes Peripheral Pulses: Left Radial: 2+, Right Radial: 2+, Left Doralis Pedis: 2+, Right Dorsalis Pedis: 2+, Left Femoral: 2+, Right Femoral: 2+ Neurological: Yes: WNL, Alert, Oriented ...Motor Strength: WNL Psychiatric: Yes: WNL Labs: CBC, BMP 05/27/20 06:45 INR, PTT INR 1.03 (0.83-1.09) 05/27/20 06:45 - ....Imaging Chest X-ray: Image Reviewed Ultrasound: Report Reviewed Problem List - Problems (1) HTN (hypertension) Assessment/Plan: remains normotensive c/w labetolol, hydralazine if needed avoid BRITNI/ARB with elevated Cr Code(s): I10 - ESSENTIAL (PRIMARY) HYPERTENSION (2) Shortness of breath Assessment/Plan: resolved maintain SPO2 > 88% ambulating on RA supplemental O2 prn Code(s): R06.02 - SHORTNESS OF BREATH (3) Abdominal pain Assessment/Plan: reolved US umarkable LFts normal Code(s): R10.9 - UNSPECIFIED ABDOMINAL PAIN (4) Prophylactic measure Assessment/Plan: FEN Fluids: c/w IVR Electrolytes: monitor & replete as needed Nutrition: low sodium diet DVT moderate risk sq heparin Dispo Maintain as inpatient full code discharge planning Code(s): Z29.9 - ENCOUNTER FOR PROPHYLACTIC MEASURES, UNSPECIFIED (5) Person under investigation for COVID-19 Assessment/Plan: negative PCR Code(s): Z20.828 - CONTACT W AND EXPOSURE TO OTH VIRAL COMMUNICABLE DISEASES (6) Diarrhea Assessment/Plan: resolved Code(s): R19.7 - DIARRHEA, UNSPECIFIED (7) Diabetes Assessment/Plan: BGM well controlled BGM AC/HS with novolog sliding scale diabetic diet Code(s): E11.9 - TYPE 2 DIABETES MELLITUS WITHOUT COMPLICATIONS Qualifiers: Diabetes mellitus type: type 2 Diabetes mellitus correction insulin use: without correction use Diabetes mellitus complication status: without complication Qualified Code(s): E11.9 - Type 2 diabetes mellitus without complications (8) [id number] kidney injury Assessment/Plan: Cr 3.2 FENA .6% prerenal in setting of dehydration r/t diarrhea US without acute pathology c/w IVF c/t trend Cr avoid nephrotoxic agents appreciate nephrology consult Code(s): N17.9 - ACUTE KIDNEY FAILURE, UNSPECIFIED; N18.9 - CHRONIC KIDNEY DISEASE, UNSPECIFIED (9) Hypercalcemia Assessment/Plan: Ca 9.7 c/t trend PTH pending Code(s): E83.52 - HYPERCALCEMIA (10) Elevated troponin Assessment/Plan: trop .10/.10/0.09 in setting of elevated Cr will remain elevated no c/o chest pain not suspeciuos for ACS-no need for further trending Code(s): R74.8 - ABNORMAL LEVELS OF OTHER SERUM ENZYMES Visit type - Emergency Visit Emergency Visit: Yes ED Registration Date: 05/25/20 Care time: The patient presented to the Emergency Department on the above date and was hospitalized for further evaluation of their emergent condition. - New Patient This patient is new to me today: No - Critical Care Critical Care patient: No - Discharge Referral Referred to [facility] Med P.C.: No
[2020-05-27 09:14] LABS: ALBUMIN 3.9 g/dl (3.4-5.0); BLOOD UREA NITROGEN 41.9 mg/dL (7-18); CALCIUM 9.7 mg/dL (8.5-10.1); CREATININE 3.2 mg/dL (0.55-1.3); MAGNESIUM 2.7 mg/dL (1.8-2.4); POTASSIUM 4.2 mmol/L (3.5-5.1); TOT PROT 7.1 g/dl (6.4-8.2)
[2020-05-27] MEDS: ASPIRIN 81 MG CHEWABLE TABLETS PO SCH (10:22)
[2020-05-27] MEDS: LABETALOL HCL 100 MG TABLET (FP) PO SCH ×2 (10:22→21:11)
[2020-05-27] MEDS: amLODIPine BESYLATE 10 MG TABLET (FP) PO SCH (10:22)
--- NOTE | 2020-05-27 14:39 | PN ---
Progress Note, Physician History of Present Illness: Pt seen and examined at bedside. She is awake and alert. She denies shortness of breath. - Current Medication List Current Medications: Active Medications Amlodipine Besylate (Norvasc -) 10 mg PO DAILY [facility] Last Admin: 05/27/20 10:22 Dose: 10 mg Documented by: Aspirin (Asa -) 81 mg PO DAILY [facility] Last Admin: 05/27/20 10:22 Dose: 81 mg Documented by: Atorvastatin Calcium (Lipitor -) 80 mg PO HS [facility] Last Admin: 05/26/20 21:46 Dose: 80 mg Documented by: Heparin Sodium (Porcine) (Heparin -) 5,000 unit SQ TID [facility] Last Admin: 05/27/20 06:02 Dose: 5,000 unit Documented by: Hydralazine HCl (Apresoline Injection -) 5 mg IVPUSH Q6H PRN PRN Reason: HYPERTENSION Sodium Chloride (Normal Saline -) 1,000 mls @ 100 mls/hr IV ASDIR [facility] Last Admin: 05/27/20 06:52 Dose: 100 mls/hr Documented by: Insulin Aspart (Novolog Vial Sliding Scale -) 1 vial SQ ACHS [facility]; Protocol Last Admin: 05/27/20 11:54 Dose: Not Given Documented by: Labetalol HCl (Normodyne -) 200 mg PO BID [facility] Last Admin: 05/27/20 10:22 Dose: 200 mg Documented by: - Objective Vital Signs: Vital Signs Temperature 98.6 F 05/27/20 08:44 Pulse Rate 80 05/27/20 08:44 Respiratory Rate 18 05/27/20 08:44 Blood Pressure 122/78 05/27/20 08:44 O2 Sat by Pulse Oximetry (%) 100 05/27/20 08:44 Constitutional: Yes: Calm Eyes: Yes: Conjunctiva Clear HENT: Yes: Atraumatic Neck: Yes: Supple Cardiovascular: Yes: S1, S2 Respiratory: Yes: CTA Bilaterally Gastrointestinal: Yes: Soft Genitourinary: Yes: WNL Musculoskeletal: Yes: WNL Edema: No Neurological: Yes: Oriented Psychiatric: Yes: Oriented Labs: CBC, BMP 05/27/20 06:45 05/27/20 06:45 INR, PTT INR 1.03 (0.83-1.09) 05/27/20 06:45 Assessment/Plan Current Medications Generic Name Dose Route Start Last Admin Trade Name Panfiloq PRN Reason Stop Dose Admin Amlodipine Besylate 10 mg 05/26/20 10:00 05/27/20 10:22 Norvasc - PO 10 mg DAILY [facility] Administration Aspirin 81 mg 05/26/20 10:00 05/27/20 10:22 Asa - PO 81 mg DAILY [facility] Administration Atorvastatin Calcium 80 mg 05/25/20 22:00 05/26/20 21:46 Lipitor - PO 80 mg HS [facility] Administration Heparin Sodium (Porcine) 5,000 unit 05/25/20 22:00 05/27/20 06:02 Heparin - SQ 5,000 unit TID [facility] Administration Hydralazine HCl 5 mg 05/25/20 21:04 Apresoline Injection - IVPUSH Q6H PRN HYPERTENSION Sodium Chloride 1,000 mls @ 100 mls/hr 05/26/20 18:15 05/27/20 06:52 Normal Saline - IV 100 mls/hr ASDIR [facility] Administration Insulin Aspart 1 vial 05/25/20 22:00 05/27/20 11:54 Novolog Vial Sliding Scale - SQ Not Given ACHS [facility] Protocol Labetalol HCl 200 mg 05/26/20 07:53 05/27/20 10:22 Normodyne - PO 200 mg BID [facility] Administration Laboratory Tests 05/25/20 18:35 Urine Protein Negative Urine Blood Negative Impression 1. HTN 2. proteinuria 3. hld 4. DM 5. ear pain 6. CKD with reduced gfr and proteinuria 7. NEGRA Plan - renal function improving - bp stable - pt is off of diuretics - cont fluids, change to 1/2 ns - ua neg for blood or protein
[2020-05-27] MEDS ORDERED: SODIUM CHLORIDE 0.45% 1,000 ML IV SCH (14:45)
[2020-05-27] MEDS: ATORVASTATIN CA 80 MG TABLET (FP) PO SCH (21:11)
[2020-05-28] MEDS: HEPARIN NA (PORCINE) 5,000 UNITS/ML 1ML VIAL SQ SCH ×2 (06:13→13:57)
[2020-05-28] MEDS: INSULIN SLIDING SCALE (NOVOLOG) 1 VIAL SQ SCH ×2 (06:23→11:43)
[2020-05-28 06:58] LABS: EOS % 4.2 % (0-4.5); HEMATOCRIT 36.4 % (32.4-45.2); HEMOGLOBIN 11.7 GM/dL (10.7-15.3); LYMPH % 34.4 % (8-40); MCH 28.4 pg (25.7-33.7); MCHC 32.1 g/dl (32.0-36.0); MEAN CELL VOLUME 88.6 fl (80-96); MEAN PLT VOLUME 10.6 fl (7.5-11.1); MONO % 7.9 % (3.8-10.2); NEUT % 52.5 % (42.8-82.8); PLATELET COUNT 282 K/MM3 (134-434); RBC 4.11 M/mm3 (3.60-5.2); RDW 15.3 % (11.6-15.6); WHITE BLOOD COUNT 6.1 K/mm3 (4.0-10.0)
[2020-05-28 07:05] LABS: ALBUMIN 3.7 g/dl (3.4-5.0); BILIRUBIN,TOTAL 0.4 mg/dL (0.2-1); BLOOD UREA NITROGEN 33.5 mg/dL (7-18); CALCIUM 9.6 mg/dL (8.5-10.1); CREATININE 2.2 mg/dL (0.55-1.3); MAGNESIUM 2.4 mg/dL (1.8-2.4); POTASSIUM 4.2 mmol/L (3.5-5.1)
[2020-05-28] MEDS: amLODIPine BESYLATE 10 MG TABLET (FP) PO SCH (10:09)
[2020-05-28] MEDS: ASPIRIN 81 MG CHEWABLE TABLETS PO SCH (10:09)
[2020-05-28] MEDS: LABETALOL HCL 100 MG TABLET (FP) PO SCH (10:10)
--- NOTE | 2020-05-28 10:59 | PN ---
Physical Exam: SUBJECTIVE: Patient seen and examined OBJECTIVE: Vital Signs Period Temp Pulse Resp BP Sys/Garcia Pulse Ox Last 24 Hr 97.8 F-98.2 F 73-83 16-20 126-141/48-82 97 GENERAL: The patient is awake, alert, and fully oriented, in no acute distress. HEAD: Normal with no signs of trauma. EYES: PERRL, extraocular movements intact, sclera anicteric, conjunctiva clear. No ptosis. ENT: Ears normal, nares patent, oropharynx clear without exudates, moist mucous membranes. NECK: Trachea midline, full range of motion, supple. LUNGS: Breath sounds equal, clear to auscultation bilaterally, no wheezes, no crackles, no accessory muscle use. HEART: Regular rate and rhythm, S1, S2 without murmur, rub or gallop. ABDOMEN: Soft, nontender, nondistended, normoactive bowel sounds, no guarding, no rebound, no hepatosplenomegaly, no masses. EXTREMITIES: 2+ pulses, warm, well-perfused, no edema. NEUROLOGICAL: Cranial nerves II through XII grossly intact. Normal speech, gait not observed. PSYCH: Normal mood, normal affect. SKIN: Warm, dry, normal turgor, no rashes or lesions noted Laboratory Results - last 24 hr 05/26/20 05/27/20 05/27/20 10:35 06:45 11:12 WBC RBC Hgb Hct MCV MCH MCHC RDW Plt Count MPV Absolute Neuts (auto) Neutrophils % Lymphocytes % Monocytes % Eosinophils % Basophils % Nucleated RBC % Sodium Potassium Chloride Carbon Dioxide Anion Gap BUN Creatinine Est GFR (CKD-EPI)AfAm Est GFR (CKD-EPI)NonAf POC Glucometer Random Glucose Calcium Magnesium Total Bilirubin AST ALT Alkaline Phosphatase Troponin I 0.09 H C-Reactive Protein 1.6 H Total Protein Albumin COVID-19 (GISELLA) Not detected 05/27/20 05/27/20 05/28/20 12:16 21:17 05:45 WBC 6.1 RBC 4.11 Hgb 11.7 Hct 36.4 MCV 88.6 MCH 28.4 MCHC 32.1 RDW 15.3 Plt Count 282 MPV 10.6 Absolute Neuts (auto) 3.2 Neutrophils % 52.5 Lymphocytes % 34.4 Monocytes % 7.9 Eosinophils % 4.2 Basophils % 1.0 Nucleated RBC % 0 Sodium Potassium Chloride Carbon Dioxide Anion Gap BUN Creatinine Est GFR (CKD-EPI)AfAm Est GFR (CKD-EPI)NonAf POC Glucometer 87 118 Random Glucose Calcium Magnesium Total Bilirubin AST ALT Alkaline Phosphatase Troponin I C-Reactive Protein Total Protein Albumin COVID-19 (GISELLA) 05/28/20 05/28/20 05:45 06:18 WBC RBC Hgb Hct MCV MCH MCHC RDW Plt Count MPV Absolute Neuts (auto) Neutrophils % Lymphocytes % Monocytes % Eosinophils % Basophils % Nucleated RBC % Sodium 139 Potassium 4.2 Chloride 107 Carbon Dioxide 26 Anion Gap 6 L BUN 33.5 H Creatinine 2.2 H Est GFR (CKD-EPI)AfAm 28.71 Est GFR (CKD-EPI)NonAf 24.77 POC Glucometer 109 Random Glucose 100 Calcium 9.6 Magnesium 2.4 Total Bilirubin 0.4 AST 15 ALT 26 Alkaline Phosphatase 94 Troponin I 0.10 H C-Reactive Protein Total Protein 7.0 Albumin 3.7 COVID-19 (GISELLA) Active Medications Generic Name Dose Route Start Last Admin Trade Name Panfiloq PRN Reason Stop Dose Admin Amlodipine Besylate 10 mg 05/26/20 10:00 05/28/20 10:09 Norvasc - PO 10 mg DAILY [facility] Administration Aspirin 81 mg 05/26/20 10:00 05/28/20 10:09 Asa - PO 81 mg DAILY [facility] Administration Atorvastatin Calcium 80 mg 05/25/20 22:00 05/27/20 21:11 Lipitor - PO 80 mg HS [facility] Administration Heparin Sodium (Porcine) 5,000 unit 05/25/20 22:00 05/28/20 06:13 Heparin - SQ 5,000 unit TID [facility] Administration Hydralazine HCl 5 mg 05/25/20 21:04 Apresoline Injection - IVPUSH Q6H PRN HYPERTENSION Sodium Chloride 1,000 mls @ 83 mls/hr 05/27/20 14:45 05/27/20 17:35 1/2 Normal Saline IV 83 mls/hr ASDIR [facility] Administration Insulin Aspart 1 vial 05/25/20 22:00 05/28/20 06:23 Novolog Vial Sliding Scale - SQ Not Given ACHS [facility] Protocol Labetalol HCl 200 mg 05/26/20 07:53 05/28/20 10:10 Normodyne - PO 200 mg BID [facility] Administration ASSESSMENT/PLAN:
--- NOTE | 2020-05-28 14:03 | PN ---
Progress Note, Physician Chief Complaint: Pt A&Ox3; no chest pain or dyspnea; no dysuria;nausea is minimal now, and less frequent. History of Present Illness: Ms. Gonzales is a 55 y/o black woman with PMhx of HTN, DM, morbid obesity, sedentary, now presenting with nausea and ALONSO. (She was recently DCd from an admission 4 days ago from here after being found in hypertensive emergency with SBP 220s and elevated trop. She was DCd on several new meds including losartan, amlodipine, HCTZ, metformin; stress Lexiscan MIBI was negative for ischemia). She reports nausea and emesis associated with nonradiating epigastric abd pain since DC that was a 01/29; not post-prandial. She also reports increasing ALONSO without chest pain. No SOB at rest. Denies fever, chills, palp, dysuria, diarrhea, cough, wheeze PMHx: as noted above ROS: as noted SHx: Denies tobacco use; no alcohol use; no rec drugs Allergies: NKDA - Current Medication List Current Medications: Active Medications Amlodipine Besylate (Norvasc -) 10 mg PO DAILY [facility] Last Admin: 05/28/20 10:09 Dose: 10 mg Documented by: Aspirin (Asa -) 81 mg PO DAILY [facility] Last Admin: 05/28/20 10:09 Dose: 81 mg Documented by: Atorvastatin Calcium (Lipitor -) 80 mg PO HS [facility] Last Admin: 05/27/20 21:11 Dose: 80 mg Documented by: Heparin Sodium (Porcine) (Heparin -) 5,000 unit SQ TID [facility] Last Admin: 05/28/20 13:57 Dose: 5,000 unit Documented by: Hydralazine HCl (Apresoline Injection -) 5 mg IVPUSH Q6H PRN PRN Reason: HYPERTENSION Sodium Chloride (1/2 Normal Saline) 1,000 mls @ 83 mls/hr IV ASDIR [facility] Last Admin: 05/27/20 17:35 Dose: 83 mls/hr Documented by: Insulin Aspart (Novolog Vial Sliding Scale -) 1 vial SQ ACHS [facility]; Protocol Last Admin: 05/28/20 11:43 Dose: Not Given Documented by: Labetalol HCl (Normodyne -) 200 mg PO BID [facility] Last Admin: 05/28/20 10:10 Dose: 200 mg Documented by: - Objective Vital Signs: Vital Signs Temperature 97.8 F 05/28/20 09:00 Pulse Rate 80 05/28/20 09:00 Respiratory Rate 18 05/28/20 09:00 Blood Pressure 126/53 L 05/28/20 09:00 O2 Sat by Pulse Oximetry (%) 97 05/28/20 09:00 Constitutional: Yes: Anxious Eyes: Yes: WNL HENT: Yes: WNL Neck: Yes: WNL Cardiovascular: Yes: S1, S2 Respiratory: Yes: WNL Gastrointestinal: Yes: Soft. No: Tenderness ...Rectal Exam: Yes: Deferred Genitourinary: No: Anuria Breast(s): Yes: WNL Musculoskeletal: Yes: WNL Extremities: Yes: WNL Edema: No Integumentary: Yes: WNL Neurological: Yes: WNL ...Motor Strength: WNL Psychiatric: Yes: WNL Labs: CBC, BMP 05/28/20 05:45 05/28/20 05:45 INR, PTT INR 1.03 (0.83-1.09) 05/27/20 06:45 - ....Imaging Chest X-ray: Image Reviewed EKG: Image Reviewed Assessment/Plan Acute renal dysfunction Nausea (pt feels diabetic medication was principal cause) HTN DM morbid obesity fatty liver chronic mildly elevated TNI (stress MIBI 04/2020 negative for myocardial ischemia) 1. On Labetalol 200 mg BID and Amlodipine 10 mg QD. Avoid ACEI or ARB and diuretics for now due to increase in Cr (patient had been on Losartan) 2. She has been on IVF, with improved renal function; encourage PO intake. 3. Atorvastatin currently at 80 mg QHS (follow lipid panel) 4. Further management for DM to follow: medication change; diet modification, weight loss, increase in exercise. 5. 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 6. TNI (0.1) lower than on previous recent admission (0.37). 7. Fatty liver; LFTs WNL. Pt rarely has an alcoholic drink. Diet change, weight loss encouraged.
--- NOTE | 2020-05-28 14:08 | PN ---
Progress Note, Physician History of Present Illness: Pt seen and examined at bedside. She is awake and alert. She denies shortness of breath. - Current Medication List Current Medications: Active Medications Amlodipine Besylate (Norvasc -) 10 mg PO DAILY [facility] Last Admin: 05/28/20 10:09 Dose: 10 mg Documented by: Aspirin (Asa -) 81 mg PO DAILY [facility] Last Admin: 05/28/20 10:09 Dose: 81 mg Documented by: Atorvastatin Calcium (Lipitor -) 80 mg PO HS [facility] Last Admin: 05/27/20 21:11 Dose: 80 mg Documented by: Heparin Sodium (Porcine) (Heparin -) 5,000 unit SQ TID [facility] Last Admin: 05/28/20 13:57 Dose: 5,000 unit Documented by: Hydralazine HCl (Apresoline Injection -) 5 mg IVPUSH Q6H PRN PRN Reason: HYPERTENSION Sodium Chloride (1/2 Normal Saline) 1,000 mls @ 83 mls/hr IV ASDIR [facility] Last Admin: 05/27/20 17:35 Dose: 83 mls/hr Documented by: Insulin Aspart (Novolog Vial Sliding Scale -) 1 vial SQ ACHS [facility]; Protocol Last Admin: 05/28/20 11:43 Dose: Not Given Documented by: Labetalol HCl (Normodyne -) 200 mg PO BID [facility] Last Admin: 05/28/20 10:10 Dose: 200 mg Documented by: - Objective Vital Signs: Vital Signs Temperature 97.8 F 05/28/20 09:00 Pulse Rate 80 05/28/20 09:00 Respiratory Rate 18 05/28/20 09:00 Blood Pressure 126/53 L 05/28/20 09:00 O2 Sat by Pulse Oximetry (%) 97 05/28/20 09:00 Constitutional: Yes: Calm Eyes: Yes: Conjunctiva Clear HENT: Yes: Atraumatic Neck: Yes: Supple Cardiovascular: Yes: S1, S2 Respiratory: Yes: CTA Bilaterally Gastrointestinal: Yes: Soft Genitourinary: Yes: WNL Extremities: Yes: WNL Edema: No Neurological: Yes: Oriented Psychiatric: Yes: Oriented Labs: CBC, BMP 05/28/20 05:45 05/28/20 05:45 INR, PTT INR 1.03 (0.83-1.09) 05/27/20 06:45 Assessment/Plan Current Medications Generic Name Dose Route Start Last Admin Trade Name Viktoria PRN Reason Stop Dose Admin Amlodipine Besylate 10 mg 05/26/20 10:00 05/28/20 10:09 Norvasc - PO 10 mg DAILY JONE Administration Aspirin 81 mg 05/26/20 10:00 05/28/20 10:09 Asa - PO 81 mg DAILY JONE Administration Atorvastatin Calcium 80 mg 05/25/20 22:00 05/27/20 21:11 Lipitor - PO 80 mg HS JONE Administration Heparin Sodium (Porcine) 5,000 unit 05/25/20 22:00 05/28/20 13:57 Heparin - SQ 5,000 unit TID JONE Administration Hydralazine HCl 5 mg 05/25/20 21:04 Apresoline Injection - IVPUSH Q6H PRN HYPERTENSION Sodium Chloride 1,000 mls @ 83 mls/hr 05/27/20 14:45 05/27/20 17:35 1/2 Normal Saline IV 83 mls/hr ASDIR JONE Administration Insulin Aspart 1 vial 05/25/20 22:00 05/28/20 11:43 Novolog Vial Sliding Scale - SQ Not Given ACHS JONE Protocol Labetalol HCl 200 mg 05/26/20 07:53 05/28/20 10:10 Normodyne - PO 200 mg BID JONE Administration Impression 1. HTN 2. proteinuria 3. hld 4. DM 5. ear pain 6. CKD with reduced gfr and proteinuria 7. 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
[2020-05-28 14:54] VITALS: BP 122/60; PULSE 72; TEMP 98
--- NOTE | 2020-05-28 15:27 | DS ---
Physical Exam: SUBJECTIVE: Patient seen and examined. Feels better, denies any further dyspnea or abdominal pain. OBJECTIVE: Patient is a 55 year old female with a significant past medical history of NIDDM and HTN who presented to [facility] on 05/25/2020 due to dyspnea on exertion and abdominal pain. Patient recently discharged from [facility] when she was treated for hypertensive emergency. Patient was discharged on Losartan, Amlodipine, Tramterne/HCTZ, Labetalol, and Metformin. Patient endorses that since starting Metformin, she has experienced GI upset as well as copious amounts of diarrhea. Furthermore, on , patient states she began to feel short of breath especially on exertion. Patient endorses nausea and vomiting associated with nonradiating epigastric abdominal pain. Patient to be discharged home today. She has a follow up appointment with her PCP this Wednesday at 1pm and will have follow up labs then. She is refusing to continue taking Metformin and will be sent home on Glimerpride low dose to be followed up by her PCP whether to continue this medication. Her hmga1c is stable at 7.2. She has been instructed not to take any diuretics or ARBs/BRITNI until she follows up with renal (Dr. Butler). Patient has agreed to follow up and is stable for discharge home. Vital Signs Period Temp Pulse Resp BP Sys/Garcia Pulse Ox Last 24 Hr 97.8 F-98.2 F 72-83 16-20 122-141/48-82 97 PHYSICAL EXAM GENERAL: The patient is awake, alert, and fully oriented, in no acute distress. HEAD: Normal with no signs of trauma. EYES: PERRL, extraocular movements intact, sclera anicteric, conjunctiva clear. ENT: Ears normal, nares patent, oropharynx clear without exudates, moist mucous membranes. NECK: Trachea midline, full range of motion, supple. LUNGS: Breath sounds equal, clear to auscultation bilaterally, no wheezes, no crackles, no accessory muscle use. HEART: Regular rate and rhythm, S1, S2 without murmur, rub or gallop. ABDOMEN: Soft, nontender, nondistended, normoactive bowel sounds, no guarding, no rebound, no hepatosplenomegaly, no masses. EXTREMITIES: 2+ pulses, warm, well-perfused, no edema. NEUROLOGICAL: Cranial nerves II through XII grossly intact. Normal speech, gait not observed. PSYCH: Normal mood, normal affect. SKIN: Warm, dry, normal turgor, no rashes or lesions noted. LABS Laboratory Results - last 24 hr 05/26/20 05/27/20 05/27/20 10:35 06:45 21:17 WBC RBC Hgb Hct MCV MCH MCHC RDW Plt Count MPV Absolute Neuts (auto) Neutrophils % Lymphocytes % Monocytes % Eosinophils % Basophils % Nucleated RBC % Sodium Potassium Chloride Carbon Dioxide Anion Gap BUN Creatinine Est GFR (CKD-EPI)AfAm Est GFR (CKD-EPI)NonAf POC Glucometer 118 Random Glucose Hemoglobin A1c % Calcium Magnesium Total Bilirubin AST ALT Alkaline Phosphatase Troponin I C-Reactive Protein 1.6 H Total Protein Albumin COVID-19 (GISELLA) Not detected 05/28/20 05/28/20 05/28/20 05:45 05:45 06:18 WBC 6.1 RBC 4.11 Hgb 11.7 Hct 36.4 MCV 88.6 MCH 28.4 MCHC 32.1 RDW 15.3 Plt Count 282 MPV 10.6 Absolute Neuts (auto) 3.2 Neutrophils % 52.5 Lymphocytes % 34.4 Monocytes % 7.9 Eosinophils % 4.2 Basophils % 1.0 Nucleated RBC % 0 Sodium 139 Potassium 4.2 Chloride 107 Carbon Dioxide 26 Anion Gap 6 L BUN 33.5 H Creatinine 2.2 H Est GFR (CKD-EPI)AfAm 28.71 Est GFR (CKD-EPI)NonAf 24.77 POC Glucometer 109 Random Glucose 100 Hemoglobin A1c % Calcium 9.6 Magnesium 2.4 Total Bilirubin 0.4 AST 15 ALT 26 Alkaline Phosphatase 94 Troponin I 0.10 H C-Reactive Protein Total Protein 7.0 Albumin 3.7 COVID-19 (GISELLA) 05/28/20 05/28/20 06:24 11:32 WBC RBC Hgb Hct MCV MCH MCHC RDW Plt Count MPV Absolute Neuts (auto) Neutrophils % Lymphocytes % Monocytes % Eosinophils % Basophils % Nucleated RBC % Sodium Potassium Chloride Carbon Dioxide Anion Gap BUN Creatinine Est GFR (CKD-EPI)AfAm Est GFR (CKD-EPI)NonAf POC Glucometer 97 Random Glucose Hemoglobin A1c % 7.2 H Calcium Magnesium Total Bilirubin AST ALT Alkaline Phosphatase Troponin I C-Reactive Protein Total Protein Albumin COVID-19 (GISELLA) HOSPITAL COURSE: Date of Admission:05/25/20 Date of Discharge: 05/28/20 Minutes to complete discharge: 45 Discharge Summary Problems reviewed: Yes Reason For Visit: SOB/DIZZY/NAUSEA/ACUTE KIDNEY INJ/MALAISE/VOMITING Current Active Problems NEGRA (acute kidney injury) (Acute) Abdominal pain (Acute) Ghmpz-bb-lhgbtkr kidney injury (Acute) Diabetes (Acute) Diarrhea (Acute) HTN (hypertension) (Acute) Hypercalcemia (Acute) Malaise (Acute) Nausea & vomiting (Acute) Person under investigation for COVID-19 (Acute) Prophylactic measure (Acute) Shortness of breath (Acute) Hospital Course: You were admitted to the hospital for acute kidney injury. You were given IV fluids and your kidney function has now improved. We discontinued your metformin due to your adverse side effects from the medication and have now been started on Glimepiride. please continue to check your blood sugars at home and keep a log of your results to show to your doctor when you follow up. Your HgbA1C is 7.2% Continue diabetic low sodium diet You need to make an appointment with your kidney doctor Dr Butler to have blood work to follow up on your kidney function Follow up with your PCP, you have an appointment Wednesday at 1pm Continue all other home medications Return to ER if: worsening symptoms fever 101 or greater Condition: Improved - Instructions Diet, Activity, Other Instructions: You were admitted to the hospital for acute kidney injury. You were given IV fluids and your kidney function has now improved. Acute Kidney Injury is a condition where your kidney suddenly can't filter waste from the blood. It is important that you follow up with Dr Butler and your PCP to have your blood work repeated to make sure your kidney function goes back to normal Do not take any diuretics or Losartan as this can make your kidney function worse For your blood pressure continue to take: Labetolol 200mg twice a day Amlodipine 10mg once a day We discontinued your metformin due to your adverse side effects from the medication and have now been started on Glimepiride 1mg once a day with meals. please continue to check your blood sugars at home and keep a log of your results to show to your doctor when you follow up. Your HgbA1C is 7.2% Continue diabetic low sodium diet You need to make an appointment with your kidney doctor Dr Butler to have blood work to follow up on your kidney function Follow up with your PCP, you have an appointment Wednesday at 1pm Continue all other home medications Return to ER if: worsening symptoms fever 101 or greater Referrals: Eleazar Butler MD [Staff Physician] - Disposition: HOME - Home Medications Comprehensive Discharge Medication List: Ambulatory Orders Amlodipine Besylate [Norvasc -] 10 mg PO DAILY #30 tablet 05/21/20 Aspirin [ASA -] 81 mg PO DAILY #30 tab.chew 05/21/20 Atorvastatin Ca [Lipitor] 80 mg PO HS #30 tablet 05/21/20 Labetalol HCl [Normodyne -] 200 mg PO BID #60 tablet 05/21/20 Glimepiride 1 mg PO DAILY #30 tablet 05/28/20 Problem List - Problems (1) NEGRA (acute kidney injury) Assessment/Plan: improved on 11/23 NS. to have repeat labs done this Wednesday. she agrees to follow up with Dr. Butler Code(s): N17.9 - ACUTE KIDNEY FAILURE, UNSPECIFIED (2) Abdominal pain Assessment/Plan: resolved. tolerating meals, no nausea/vomiting. Code(s): R10.9 - UNSPECIFIED ABDOMINAL PAIN (3) Nqsdc-it-pnoebvw kidney injury Assessment/Plan: improved. patient to have repeat labs outpatient. Code(s): N17.9 - ACUTE KIDNEY FAILURE, UNSPECIFIED; N18.9 - CHRONIC KIDNEY DISEA SE, UNSPECIFIED (4) Diabetes Assessment/Plan: a1c 7.2. refusing metformin. will start glimerpride low dose. patient to f/u with her pcp this Wednesday Code(s): E11.9 - TYPE 2 DIABETES MELLITUS WITHOUT COMPLICATIONS Qualifiers: Diabetes mellitus type: type 2 Diabetes mellitus electronics engineer insulin use: without electronics engineer use Diabetes mellitus complication status: without complication Qualified Code(s): E11.9 - Type 2 diabetes mellitus without complications (5) Nausea & vomiting Assessment/Plan: resolved Code(s): R11.2 - NAUSEA WITH VOMITING, UNSPECIFIED Qualifiers: Vomiting type: unspecified Vomiting Intractability: non-intractable Qualified Code(s): R11.2 - Nausea with vomiting, unspecified (6) Shortness of breath Assessment/Plan: tolerating room air, no shortness of breath, on room air. Code(s): R06.02 - SHORTNESS OF BREATH This patient is new to me today: Yes Date on this admission: 05/28/20 Emergency Visit: Yes ED Registration Date: 05/25/20 Care time: The patient presented to the Emergency Department on the above date and was hospitalized for further evaluation of their emergent condition. Critical Care patient: No - Discharge Referral Referred to [facility] No
== END 2020-05-28 15:33 | disposition home or self-care (01) | DRG 683 ==
LOC: JER 16:25 → JERBED 19:21 → UNDOADMIN 19:21 → J4W 05-26 18:14
PROVIDERS: ADMIT Internal Medicine; ATTEND Nurse Practitioner Family
DX: N17.9 Acute kidney failure, unspecified (principal); I24.8 Other forms of acute ischemic heart disease; I12.9 Hypertensive chronic kidney disease with stage 1 through stage 4 chronic kidney disease, or unspecified chronic kidney disease; N18.9 Chronic kidney disease, unspecified; E11.9 Type 2 diabetes mellitus without complications; E83.52 Hypercalcemia; R10.9 Unspecified abdominal pain; R19.7 Diarrhea, unspecified; R11.2 Nausea with vomiting, unspecified; R06.02 Shortness of breath; E78.5 Hyperlipidemia, unspecified; E66.01 Morbid (severe) obesity due to excess calories; Z68.39 Body mass index [BMI] 39.0-39.9, adult; K76.0 Fatty (change of) liver, not elsewhere classified; G47.30 Sleep apnea, unspecified
CPT/HCPCS: 36415; 71046-TC-FY; 76775-TC; 80053; 81003; 82550; 82553; 82565; 82728; 82962; 83036; 83615; 83735; 83880; 83970; 84100; 84300; 84484; 85025; 85027; 85379; 85610; 85730; 86140; 93005; 93010; 99285-25; J1644; U0003

== ENCOUNTER 2020-08-07 21:40 | Inpatient (IN) | payer OTHER ==
[2020-08-07 21:49] VITALS: TEMP 98.1; BMI 38.7
--- OUTSIDE RECORDS SUMMARY | 2020-08-07 21:58 | XMS ---
:1965 Author Organization [facility] Support Name Relationship Address Phone YOBE Unavailable [address] [place], [place] [id number] [place] [address] BOARD OF EDUCATION Unavailable [address] [place] [id number] YOLI ALEGRIA [address] [facility], [place] [address] REN, VELMA DAUGHTER [address] [place] [address] VELMA MCCLURE Child [address] [place] [address] Re-disclosure Warning The records that you are about to access may contain information from federally- assisted alcohol or drug abuse programs. If such information is present, then the following federally mandated warning applies: This information has been disclosed to you from records protected by federal confidentiality rules (42 CFR part 2). The federal rules prohibit you from making any further disclosure of this information unless further disclosure is expressly permitted by the written consent of the person to whom it pertains or as otherwise permitted by 42 CFR part 2. A general authorization for the release of medical or other information is NOT sufficient for this purpose. The Federal rules restrict any use of the information to criminally investigate or prosecute any alcohol or drug abuse patient.The records that you are about to access may contain highly sensitive health information, the redisclosure of which is protected by Article 27-F of the [facility] Public Health law. If you continue you may haveaccess to information: Regarding HIV / AIDS; Provided by facilities licensed or operated by the [facility] Office of Mental Health; or Provided by the [facility] Office for People With Developmental Disabilities. If such information is present, then the following [facility] mandated warning applies: This information has been disclosed to you from confidential records which are protected by state law. State law prohibits you from making any further disclosure of this information without the specific written consent of the person to whom it pertains, or as otherwise permitted by law. Any unauthorized further disclosure in violation of state law may result in a fine or group home sentence or both. A general authorization for the release of medical or other information is NOT sufficient authorization for further disclosure. 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 and reported by [facility]. ID Date Data Source [id number] 05/18/2020 06:00:00 PM EDT [facility] Name Value Range Interpretation Description Data Sup porting Code Source(s) Document(s ) SARS [facility] CORONAVIRUS 2 RNA This lab was ordered by [facility] and reported by [facility]. Procedure
[2020-08-07] MEDS ORDERED: hydrALAZINE HCL 20 MG/ML VIAL IVPUSH ONE (22:27)
[2020-08-07] MEDS ORDERED: hydrALAZINE HCL 50 MG TABLET (FP) PO ONE (22:33)
[2020-08-07] MEDS ORDERED: LABETALOL HCL 200 MG TABLET (FP) PO ONE (22:33)
--- NOTE | 2020-08-07 22:40 | PDOC ---
History of Present Illness - History of Present Illness Initial Comments: 55 yo female with PMH of HTN, HLD, DM, CKD presents with light headedness. Pt was with her mother who is being seen at the ED when she stood up and felt light headed. She also endorses a dull non-exertional non-radiating chest pressure. She denies gamboa, sob, nvd, abd pain. She states that she is eating/drinking normally but has missed dinner due to having to bring her mother in. She had a stress test on May 28 which she says was "normal". She takes Hydralazine 50 TID & Labetolol 200 BID, both of which are scheduled for night. She has been a dmitted for hypertensive emergency in the past. No family hx of early heart disease. No smoking hx. She is post-menopausal. 08/07/20 22:39 <Cory Garcia - Last Filed: 08/08/20 01:31> <Agustina Mcdonough - Last Filed: 08/08/20 02:49> - General Chief Complaint: Chest Pain Stated Complaint: HYPERTENSION Time Seen by Provider: 08/07/20 22:11 Past History - Medical History COPD: No Diabetes: Yes (NIDDM) HTN: Yes Hypercholesterolemia: Yes - Surgical History Abdominal Surgery: Yes (FIBROIDS, TUBAL LIGATION) - Reproductive History Is Patient Now?: No (#): 5 Para: 2 Therapeutic (s) & number: Yes (3) Tubal Ligation: Yes - Psycho-Social/Smoking History Smoking Status: No Smoking History: Never smoked Have you smoked in the past 12 months: No Number of Cigarettes Smoked Daily: 0 - Substance Abuse Hx (Audit-C & DAST Scrn) How often the patient has a drink containing alcohol: Never Score: In Men: 4 or > Positive; In Women: 3 or > Positive: 0 Screen Result (Pos requires Nsg. Audit-10AR): Negative <Cory Garcia - Last Filed: 08/08/20 01:31> <Agustina Mcdonough - Last Filed: 08/08/20 02:49> - Medical History Allergies/Adverse Reactions: Allergies Allergy/AdvReac Type Severity Reaction Status Date / Time No Known Allergies Allergy Verified 05/25/20 16:41 Home Medications: Ambulatory Orders Amlodipine Besylate [Norvasc -] 10 mg PO DAILY #30 tablet 05/21/20 Aspirin [ASA -] 81 mg PO DAILY #30 tab.chew 05/21/20 Atorvastatin Ca [Lipitor] 80 mg PO HS #30 tablet 05/21/20 Labetalol HCl [Normodyne -] 200 mg PO BID #60 tablet 05/21/20 Glimepiride 1 mg PO DAILY #30 tablet 05/28/20 Hydralazine HCl 50 mg PO TID 08/08/20 Losartan Potassium 100 mg PO DAILY 08/08/20 Review of Systems - Review of Systems Able to Perform ROS?: Yes Constitutional: No: Chills, Fever HEENTM: No: Recent change in vision, Double Vision Respiratory: No: Cough, Shortness of Breath Cardiac (ROS): Yes: Chest Pain, Lightheadedness. No: Palpitations, Syncope, Chest Tightness ABD/GI: No: Constipated, Diarrhea, Nausea, Vomiting : No: Burning, Dysuria Musculoskeletal: No: Joint Pain, Muscle Pain Integumentary: No: Erythema, Flushing, Lesions Neurological: No: Headache, Numbness, Paresthesia Psychiatric: No: Anxiety, Depression, Mood Swings Endocrine: No: Intolerance to Cold, Intolerance to Heat, Unexplained Weight Gain Hematologic/Lymphatic: No: Anemia, Easy Bruising <Cory Garcia - Last Filed: 08/08/20 01:31> *Physical Exam - Vital Signs Last Vital Signs Temp Pulse Resp BP Pulse Ox 98.1 F 80 18 219/120 H 96 08/07/20 21:47 08/07/20 22:30 08/07/20 22:30 08/07/20 22:30 08/07/20 22:30 <Cory Garcia - Last Filed: 08/08/20 01:31> - Vital Signs Last Vital Signs Temp Pulse Resp BP Pulse Ox 98.1 F 80 18 219/120 H 96 08/07/20 21:47 08/07/20 22:30 08/07/20 22:30 08/07/20 22:30 08/07/20 22:30 <Agustina Mcdonough - Last Filed: 08/08/20 02:49> ED Treatment Course - LABORATORY CBC & Chemistry Diagram: 08/07/20 22:50 08/07/20 22:50 <Edi Garciaroly - Last Filed: 08/08/20 01:31> - LABORATORY CBC & Chemistry Diagram: 08/07/20 22:50 08/07/20 22:50 - ADDITIONAL ORDERS Additional order review: Laboratory Results 08/07/20 22:50 Sodium 140 Potassium 4.4 Chloride 108 H Carbon Dioxide 26 Anion Gap 7 L BUN 14.8 Creatinine 1.0 Est GFR (CKD-EPI)AfAm 74.49 Est GFR (CKD-EPI)NonAf 64.27 Random Glucose 85 Calcium 10.2 H Total Bilirubin 0.3 AST 23 ALT 30 Alkaline Phosphatase 111 Creatine Kinase 372 H Troponin I 0.13 H Total Protein 8.0 Albumin 4.3 08/07/20 22:50 RBC 4.53 MCV 89.9 MCHC 32.7 RDW 16.4 H MPV 10.3 - RADIOLOGY Radiology Studies Ordered: Category Date Time Status CXRPORT [CHEST X-RAY PORTABLE*] [RAD] Stat Radiology 08/07/20 23:10 Taken - Medications Given in the ED: ED Medications Discontinued Medications Generic Name Dose Route Start Last Admin Trade Name Freq PRN Reason Stop Dose Admin Hydralazine HCl 10 mg 08/07/20 22:27 08/08/20 00:01 Apresoline Injection - IVPUSH 08/07/20 22:28 Not Given ONCE ONE Hydralazine HCl 50 mg 08/07/20 22:33 08/07/20 23:07 Apresoline - PO 08/07/20 22:34 50 mg ONCE ONE Administration Labetalol HCl 200 mg 08/07/20 22:33 08/07/20 23:07 Normodyne - PO 08/07/20 22:34 200 mg ONCE ONE Administration <Agustina Mcdonough - Last Filed: 08/08/20 02:49> Medical Decision Making - Medical Decision Making 55 yo female with PMH of HTN, HLD, DM, CKD presents with light headedness, chest pain, and hypertension EKG showed regular rate, regular rhythm, normal intervals, no st changes. -BP 219/120, -given her home dose of Labetolol (200) and Hydralazine (50) -BP 160/125 after meds CBC normal CMP normal Cardiac Profile showed elevated trop (0.13) which is consistent with her previous values. Repeat Troponin Spoke with Dr Bourne who is covering for Dr. Sommers who recommended not anticoagulating due to her chronic tropinemia without st changes and to continue trending troponin. Pt admitted for inpatient telemetry. <Cory Garcia - Last Filed: 08/08/20 01:31> Discharge <Cory Garcia - Last Filed: 08/08/20 01:31> - Discharge Information Problems reviewed: Yes <Agustina Mcdonough - Last Filed: 08/08/20 02:49> - Discharge Information Clinical Impression/Diagnosis: Chest pain Qualifiers: Chest pain type: unspecified Qualified Code(s): R07.9 - Chest pain, unspecified Vital Signs - Vital Signs Blood Pressure: 160/102 BP Location: Right Arm <Agustina Mcdonough - Last Filed: 08/08/20 02:49>
[2020-08-07] MEDS ORDERED: LABETALOL HCL 100 MG TABLET (FP) ONE (22:58)
[2020-08-07] MEDS ORDERED: hydrALAZINE HCL 25 MG TABLET (FP) ONE (22:59)
[2020-08-07 23:09] LABS: HEMATOCRIT 40.7 % (32.4-45.2); HEMOGLOBIN 13.3 GM/dL (10.7-15.3); MCH 29.4 pg (25.7-33.7); MCHC 32.7 g/dl (32.0-36.0); MEAN CELL VOLUME 89.9 fl (80-96); MEAN PLT VOLUME 10.3 fl (7.5-11.1); PLATELET COUNT 265 K/MM3 (134-434); RBC 4.53 M/mm3 (3.60-5.2); RDW 16.4 % (11.6-15.6); WHITE BLOOD COUNT 7.7 K/mm3 (4.0-10.0)
[2020-08-07 23:44] LABS: ALBUMIN 4.3 g/dl (3.4-5.0); BILIRUBIN,TOTAL 0.3 mg/dL (0.2-1); BLOOD UREA NITROGEN 14.8 mg/dL (7-18); CALCIUM 10.2 mg/dL (8.5-10.1); POTASSIUM 4.4 mmol/L (3.5-5.1)
--- NOTE | 2020-08-08 | PDOC ---
Documentation entered by Antonia Martines SCRIBE, acting as scribe for Tatiana Garsia MD. Tatiana Garsia MD: This documentation has been prepared by the scribeConrad Ana, SCRIBE, under my direction and personally reviewed by me in its entirety. I confirm that the documentation accurately reflects all work, treatment, procedures, and medical decision making performed by me. Attending Attestation - Resident Resident Name: Cory Garcia - ED Attending Attestation I have performed the following: I have examined & evaluated the patient, The case was reviewed & discussed with the resident, I agree w/resident's findings & plan, Exceptions are as noted - HPI HPI: 08/07/20 22:14 Patient is a 55 year old female with a significant past medical history of hypertensive emergency hospital admission, hypertension, hyperlipidemia, diabetes, and CKD, who presents to the ED with lightheadedness. Patient was already present in the ED with her mother who is being seen here and when patient stood up she began to feel lightheaded. Patient reports that she has been eating and drinking normally but that she missed dinner tonight due to being here with her mother. Pt. states she has not yet taken her PM dose of BP meds (labetolol and hydralazine) Patient endorses: current chest discomfort Patient denies: headache, nausea, vomiting, SOB, abdominal pain, diarrhea, smoking, or any other related symptoms. Allergies: NKDA - Physicial Exam PE: 08/07/20 23:53 General: NAD Chest: CTAB, good air entry, no wheezes rales or rhonchi CVS: + s1 s2, RRR - Medical Decision Making 08/07/20 23:54 55 yo F with lightheadedness and chest discomfort, BP very elevated however patient due for her PM dose of BP meds. Concern for ACS vs. hypertensive e mergency vs. dehydration. Plan: -labs -cxr -EKG -pt given home meds of hydralazine and labetolol -reassess This clinical encounter is taking place during a federal and state health care emergency attributable to the novel Alexandra Virus pandemic. The [employer] of the Department of Health and Human Services has declared, pursuant to the Public Health Service Act 319F-3 (42 U.S.C. 247d-6d), that a covered persons activities related to medical countermeasures against COVID-19 will be immune from liability under Federal and State law. 08/08/20 02:36 Pt. with +trop. Spoke with patient's head of research & insights who recommends hold a/c for now. recommended asa only so ordered for patient. Will admit to tele. Heart Score/ECG Review - ECG Impressions Comment:: 08/08/20 00:15 sinus, rate 77, narrow qrs, T wave flattening inferior and lateral leads Discharge - Discharge Information Problems reviewed: Yes Clinical Impression/Diagnosis: Chest pain Qualifiers: Chest pain type: unspecified Qualified Code(s): R07.9 - Chest pain, unspecified - Follow up/Referral - Patient Discharge Instructions - Post Discharge Activity
[2020-08-08] MEDS ORDERED: ASPIRIN COATED 81 MG TABLET.EC PO ONE (00:04)
[2020-08-08] MEDS ORDERED: ASPIRIN COATED 81 MG TABLET.EC ONE ×2 (00:17→00:20)
--- NOTE | 2020-08-08 01:04 | PN ---
Teaching Attending Note Name of Resident: Wilmer Muñoz ATTENDING PHYSICIAN STATEMENT I saw and evaluated the patient. I reviewed the resident's note and discussed the case with the resident. I agree with the resident's findings and plan as documented. SUBJECTIVE: Patient is a 55 year old woman with a PMH of Obesity, Hypertension, Fibroids, Tu bal ligation, Hyperlipidemia, NIDDM, Multiple hospital admissions for "uncontrolled" HTN and CKD, who presents to the ER with lightheadedness and associated chest discomfort. Patient was already present in the ER with her mother who is being seen here and when patient stood up she began to feel lightheaded. Patient reports that she has been eating and drinking normally but that she missed dinner tonight due to being here with her mother. States she has not yet taken her PM dose of BP medication (Labetolol and Hydralazine). Patient denies headache, nausea, vomiting, SOB, abdominal pain, diarrhea, headache, palpitations, fever, chills, nausea, vomiting, diarrhea, constipation, dysuria, frequency, urgency, melena, hematochezia or hematuria. Patient is postmenopausal. Denies alcohol, tobacco or illicit drug use. No sick contacts or recent travels. Family history is unremarkable. OBJECTIVE: Alert Vital Signs Period Temp Pulse Resp BP Sys/Garcia Pulse Ox Last 24 Hr 98.1 F 80-84 18-20 160-246/102-126 96-100 HEENT: No Jaundice, eye redness or discharge, PERRLA, EOMI. Normocephalic, atraumatic. External ears are normal and hearing is grossly intact. No nasal discharge. Neck: Supple, nontender. No palpable adenopathy or thyromegaly. No JVD Chest: Good effort. Clear to auscultation and percussion. Heart: Regular. No S3, rub or murmur Abdomen: Not distended, soft, nontender and no HSM. No rebound or guarding. Normal bowel sounds. Ext: Peripheral pulses intact. No leg edema. Skin: Warm and dry. No petechiae, rash or ecchymosis. Neuro: Alert. Oriented x3. CN 2-12 grossly intact. Sensation grossly intact in all four extremities and DTR are symmetric. Psych: Appropriate mood and affect. Good insight. Home Medications Medication Instructions Recorded Amlodipine Besylate [Norvasc -] 10 mg PO DAILY #30 tablet 06/30/20 Aspirin [ASA -] 81 mg PO DAILY #30 tab.chew 05/21/20 Atorvastatin Ca [Lipitor] 80 mg PO HS #30 tablet 05/21/20 Labetalol HCl [Normodyne -] 200 mg PO BID #60 tablet 05/21/20 Glimepiride 1 mg PO DAILY #30 tablet 05/28/20 Abnormal Lab Results 08/07/20 08/07/20 22:50 22:50 RDW 16.4 H Chloride 108 H Anion Gap 7 L Calcium 10.2 H Creatine Kinase 372 H Troponin I 0.13 H ASSESSMENT AND PLAN: 1. Chest pain/Hypertensive urgency - CXR shows cardiomegaly with no evidence of acute lung disease. EKG shows NSR at 77/minute and QTc 448, diffuse T wave flattening with no ischemic ST changes. Not significantly changed compared to prior EKG. Initial troponin is 0.13. Patient has chronic troponin elevation that peaked at 0.42 on 05/18/2020. Cardiac stress test from 05/18/2020 showed no EKG evidence of ischemia and LVEF of 56%. ECHO from 05/21/2020 showed borderline concentric LV hypertrophy and LVEF of 60%. Patient got Hydralazine 10 mg IV and 50 mg PO; Labetalol 200 mg PO in the ER and BP improved form 246/126 to 160/102. Patient has a long history of poorly controlled BP and just missing her evening medications does not explain her current BP spike. She needs workup for secondary hypertension, change in regimen to 200 mg Labetalol tid, addition of ARB - Losartan 100 mg q HS, Lasix 40 mg q am. Subsequently, will revise regimen to ensure [id number] excellent BP control. Patient counseled on the injurious effects of uncontrolled hypertension. Nonpharmacologic measures to control hypertension like weight loss, salt restriction and exercise stressed. Importance of adherence to treatment regimen and attainment of normotension emphasized. MUST KEEP STRESSING TO PATIENT THAT IN VIEW OF HER OTHER COMORBIDITIES, IF BP IS NOT WELL CONTROLLED CONSISTENTLY (<130/80), SHE WOULD RAPIDLY PROGRESS TO ESRD. Viral testing for COVID-19 ordered and patient placed on airborne, droplet and contact isolation. Will admit to telemetry, trend troponin, repeat EKG, consult consult Cardiology. Will continue comprehensive care for all of patients comorbid conditions. 2. Obesity Counseled on the risks associated with obesity. Will provide patient all the necessary assistance, counseling and positive reinforcement to facilitate weight loss. Consult dog warden. 3. DM For now, we will hold the home diabetes drugs and implement sliding scale insulin regimen. Provide comprehensive diabetes care with patient teaching and counseling about the importance of adherence to prescribed diabetes regimen, euglycemia, eye care and foot care. 4. CKD Has multiple risk factors. Kidney sonogram from 05/26/2020 was normal. Will consult Nephrology. Avoid nephrotoxic agents such as NSAIDS, aminoglycosides, contrast dyes and certain Alternative medicine products. 5. DVT prophylaxis - Heparin 5000u sq tid. 6. Advance directives - Full code
[2020-08-08] MEDS ORDERED: LOSARTAN POTASSIUM 50 MG TABLET (FP) PO ONE ×2 (02:31→02:43)
--- NOTE | 2020-08-08 03:01 | HP ---
CHIEF COMPLAINT: High blood pressure 246/126 with lightheadedness PCP: Dr. Torres HISTORY OF PRESENT ILLNESS: 55 year old female patient with past medical history that includes HTN, Hx of HTN Emergency, DM, and HLD, who presented to the emergency room with her mother. While her mother was being treated, the patient stood up and suddenly felt lightheaded, so she asked a nurse to check her blood pressure. The blood pressure reading was very high, 246/126, so the patient was also admitted to the hospital. She denies any headache, vision changes, weakness, numbness, or nausea. The patient hasn't eaten anything since lunch. She drinks a gallon of water a day with lemon. She takes Hydralazine 50mg TID, Labetalol 200 BID, and Losartan 100 Daily for her blood pressure, but missed her evening dose of medications because she was here at the emergency room for her mother. 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 Her destination coordinator is Dr. Sommers, and she has a Carotid Artery U/S scheduled for, she thinks, either the or the of this month. She had an Ankle-Brachial Index test done recently and believes that the results were within normal limits. She also believes that a stress test for her heart done in May 2020 was 'normal'. She was also told by one of her doctors that her calcium is high, so she will be seeing a doctor regarding her parathyroid glands. She also has an appointment for this Wednesday at 1:20 at [facility] to see her Sow Manager. In a recent admission at [facility] she had an NEGRA with a creatinine of 4.7 on 05/25/2020, which she believes was due to her being started on Metformin, and which caused her to have 'nausea and shortness of breath', so she no longer takes Metformin. ER course was notable for: (1) ECG (NSR 77bpm, DC 184ms, QTc 448ms) (2) Hydralazine 50MG, Labetalol 200MG, Aspirin 162MG (3) Troponin 0.13, CK 372 (4) Blood pressure 246/126 at 21:47, reduced to 219/120 at 22:30, and 160/102 at 02:49 Recent Travel: PAST MEDICAL HISTORY: HTN, Hx of HTN Emergency, DM, HLD PAST SURGICAL HISTORY: Fibroid embolization, Tubal ligation, 3x abortions Social History: Smoking: Denies Alcohol: 'Cup or 2' on wednesday or wednesday Drugs: Denies LMP: 5 years ago. 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 Food like apples, watermelon, chicken. Eats 1 teaspoon black seed oil daily for the past 2 weeks, which she gets from [employer]. Allergies No Known Allergies Allergy (Verified 05/25/20 16:41) HOME MEDICATIONS: Home Medications Medication Instructions Recorded Amlodipine Besylate [Norvasc -] 10 mg PO DAILY #30 tablet 05/21/20 Aspirin [ASA -] 81 mg PO DAILY #30 tab.chew 05/21/20 Atorvastatin Ca [Lipitor] 80 mg PO HS #30 tablet 05/21/20 Labetalol HCl [Normodyne -] 200 mg PO BID #60 tablet 05/21/20 Glimepiride 1 mg PO DAILY #30 tablet 05/28/20 Hydralazine HCl 50 mg PO TID 08/08/20 Losartan Potassium 100 mg PO DAILY 08/08/20 REVIEW OF SYSTEMS CONSTITUTIONAL: Fatigue Absent: denies fever/chills HEENT: Absent: denies headache CARDIOVASCULAR: Chest pain/soreness Absent: GASTROINTESTINAL: Absent: denies nausea/vomiting NEUROLOGIC: Absent: denies dizziness, denies vision changes, denies weakness, denies numbness PHYSICAL EXAMINATION Vital Signs - 24 hr 08/07/20 08/07/20 08/08/20 21:47 22:30 00:05 Temperature 98.1 F Pulse Rate 84 Pulse Rate [ 80 Left] Respiratory 20 18 Rate Blood Pressure 246/126 H 160/102 H Blood Pressure 219/120 H [Right Arm] O2 Sat by Pulse 100 96 Oximetry (%) GENERAL: Awake, alert, and fully oriented, in no acute distress. HEAD: Normal with no signs of trauma. EYES: Pupils equal, round and reactive to light, extraocular movements intact. No hemorrhage found on fundoscopic exam. No lid lag. EARS, NOSE, THROAT: Ears normal, nares patent, oropharynx clear without exudates. Moist mucous membranes. NECK: Normal range of motion, supple without lymphadenopathy, JVD, or masses. LUNGS: Breath sounds equal, clear to auscultation bilaterally. No wheezes, and no crackles. No accessory muscle use. HEART: Systolic murmur. Regular rate and rhythm, normal S1 and S2. ABDOMEN: Soft, nontender, not distended, normoactive bowel sounds, no guarding, no rebound, no masses. No renal bruits auscultated bilaterally. MUSCULOSKELETAL: Normal range of motion at all joints. No bony deformities or tenderness. UPPER EXTREMITIES: 2+ pulses, warm, well-perfused. No cyanosis. No clubbing. No peripheral edema. LOWER EXTREMITIES: 2+ pulses, warm, well-perfused. No calf tenderness. No peripheral edema. NEUROLOGICAL: Cranial nerves II-XII intact. Qkkyvn-Gniy-Zjdcqz Test Unremarkable. Normal speech. Muscle strength +5/5 in upper and lower extremities bilaterally. Sensation intact with no numbness in upper and lower extremities bilaterally. PSYCHIATRIC: Cooperative. Good eye contact. Appropriate mood and affect. SKIN: Warm, dry, normal turgor, no rashes or lesions noted, normal capillary refill. Laboratory Results - last 24 hr 08/07/20 08/07/20 22:50 22:50 WBC 7.7 RBC 4.53 Hgb 13.3 Hct 40.7 MCV 89.9 MCH 29.4 MCHC 32.7 RDW 16.4 H Plt Count 265 MPV 10.3 Sodium 140 Potassium 4.4 Chloride 108 H Carbon Dioxide 26 Anion Gap 7 L BUN 14.8 Creatinine 1.0 Est GFR (CKD-EPI)AfAm 74.49 Est GFR (CKD-EPI)NonAf 64.27 Random Glucose 85 Calcium 10.2 H Total Bilirubin 0.3 AST 23 ALT 30 Alkaline Phosphatase 111 Creatine Kinase 372 H Creatine Kinase Index 0.7 CK-MB (CK-2) 2.8 Troponin I 0.13 H Total Protein 8.0 Albumin 4.3 ASSESSMENT/PLAN: 55 year old female patient with past medical history that includes HTN, Hx of HTN Emergency, DM, and HLD, who was found in the emergency room to have a blood pressure of 246/126. 1. Hypertensive Urgency likely secondary to Secondary HTN - one time dose of Losartan 100mg ordered - Lasix 40mg qAM ordered - Labetalol 200 TID ordered - Losartan 100mg qHS ordered - Cardio consulted - Nephro consulted 2. Chest pain r/o ACS - Tele bed - repeat Troponin ordered - repeat AM EKG ordered - Lipid profile ordered 3. DM - A1C ordered - Novolog Sliding Scale ordered - Blood Glucose Monitoring ordered 4. Obesity - Maintenance And Custodian Supervisor consulted #FEN - Monitor Electrolytes. Diabetic Low Sodium Diet. DVT PPx - Heparin 5000 TID Med Rec - Pharmacy called to double check medications at 08/08/2020 01:25 Family Medical History Family History: As Documented Family Hx Cardiac Disorders: Mother (Heart Failure) Family Hx Respiratory Disorders: Mother (COPD) Visit type - Emergency Visit Emergency Visit: Yes ED Registration Date: 08/08/20 Care time: The patient presented to the Emergency Department on the above date and was hospitalized for further evaluation of their emergent condition. - New Patient This patient is new to me today: Yes Date on this admission: 08/08/20 - Critical Care Critical Care patient: No ATTENDING PHYSICIAN STATEMENT I saw and evaluated the patient. I reviewed the resident's note and discussed the case with the resident. I agree with the resident's findings and plan as documented. SUBJECTIVE: OBJECTIVE: ASSESSMENT AND PLAN:
[2020-08-08] MEDS ORDERED: LABETALOL HCL 100 MG TABLET (FP) ONE (05:09)
[2020-08-08] MEDS ORDERED: LOSARTAN POTASSIUM 50 MG TABLET (FP) ONE (05:09)
[2020-08-08] MEDS ORDERED: HEPARIN NA (PORCINE) 5,000 UNITS/ML 1ML VIAL ONE (05:09)
[2020-08-08] MEDS ORDERED: HEPARIN NA (PORCINE) 5,000 UNITS/ML 1ML VIAL SQ SCH (06:00)
[2020-08-08] MEDS ORDERED: LABETALOL HCL 200 MG TABLET (FP) PO SCH (06:00)
[2020-08-08] MEDS ORDERED: FUROSEMIDE 40 MG TABLET (FP) PO SCH ×2 (07:00)
[2020-08-08 07:03] LABS: BASO % 1.1 % (0-2.0); EOS % 2.4 % (0-4.5); HEMATOCRIT 36.2 % (32.4-45.2); HEMOGLOBIN 11.8 GM/dL (10.7-15.3); LYMPH % 28.5 % (8-40); MCHC 32.7 g/dl (32.0-36.0); MEAN CELL VOLUME 88.7 fl (80-96); MEAN PLT VOLUME 9.9 fl (7.5-11.1); MONO % 8.5 % (3.8-10.2); NEUT % 59.5 % (42.8-82.8); PLATELET COUNT 233 K/MM3 (134-434); RBC 4.09 M/mm3 (3.60-5.2); RDW 16.1 % (11.6-15.6); WHITE BLOOD COUNT 6.3 K/mm3 (4.0-10.0)
--- NOTE | 2020-08-08 07:15 | PN ---
Teaching Attending Note Name of Resident: Theodore Bliss (Nephrology) ATTENDING PHYSICIAN STATEMENT I saw and evaluated the patient. I reviewed the resident's note and discussed the case with the resident. I agree with the resident's findings and plan as documented. Nephrology Pt is a 55 year old female with pmhx of htn, darion, dm, hld who presents after being found to have elevated bp. She was with her mother in er and did not take her bp meds. She stood up and was light headed. She had them check her bp and it was elevated. She feels better now and her bp is improved. She says that she has been keeping a log of her bp and it has been about 120 to 130 over 80. pmhx dm htn darion ckd nkda social hx neg ros neg family hx non contrib Last Vital Signs Temp Pulse Resp BP Pulse Ox 98.1 F 84 18 148/96 98 08/08/20 09:05 08/08/20 11:55 08/08/20 11:55 08/08/20 11:55 08/08/20 11:55 Laboratory Tests 08/07/20 08/08/20 22:50 06:25 Creatinine 1.0 1.0 cardio s1s2 pulm clear Gi soft ext neg edema neuro awake and alert Impression 1. HTN 2. ckd 3. hld 4. DM Plan - bp improved - cont home meds - outpt follow up - pt will cont to keep a bp log - 2 gram sodium diet
[2020-08-08] MEDS ORDERED: FUROSEMIDE 40 MG TABLET (FP) ONE (07:20)
[2020-08-08 07:27] LABS: POTASSIUM 4.1 mmol/L (3.5-5.1)
[2020-08-08] MEDS: INSULIN SLIDING SCALE (NOVOLOG) 1 VIAL SQ SCH ×2 (07:30→11:55)
[2020-08-08 07:36] LABS: BLOOD UREA NITROGEN 14.4 mg/dL (7-18); CALCIUM 9.5 mg/dL (8.5-10.1); PHOSPHOROUS 3.6 mg/dL (2.5-4.9)
--- NOTE | 2020-08-08 09:21 | CON.CARD ---
Consult Consult Specialty:: cardiology Reason for Consultation:: hypertensive emergency - History of Present Illness Chief Complaint: Pt A&Ox3; sitting up at bedside. No chest pain, dizziness, blurry visioin, palpitations, or dyspnea. No leg swelling. History of Present Illness: Patient is a 55 year old black female with a significant past medical history of hypertensive emergency hospital admission, hypertension, hyperlipidemia, diabetes, elevated TNI (stress MIBI negative 2020), morbid obesity, CKD, who presents to the ED with lightheadedness. Patient was already present in the ED with her mother who is being seen here and when patient stood up she began to feel lightheaded. Patient reports that she has been eating and drinking normally but that she missed dinner tonight due to being here with her mother. Pt. states she has not yet taken her PM dose of BP meds (labetolol and hydralazine) Patient endorses: current chest discomfort Patient denies: headache, nausea, vomiting, SOB, abdominal pain, diarrhea, smoking, or any other related symptoms. Allergies: NKDA LMP: PMD: Dr. Torres Paperboard Boxes Estimator: Dr. 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)) Cardio/Vascular: Yes: HTN, Hyperlipdemia, Other ...LMP: 08/13/15 ...: No Endocrine: Yes: Diabetes Mellitus - Past Surgical History Past Surgical History: Yes: Tubal Ligation - Alcohol/Substance Use Hx Alcohol Use: Yes - Smoking History Smoking history: Never smoked Have you smoked in the past 12 months: No Aproximately how many cigarettes per day: 0 Home Medications - Allergies Allergies/Adverse Reactions: Allergies Allergy/AdvReac Type Severity Reaction Status Date / Time No Known Allergies Allergy Verified 05/25/20 16:41 - Home Medications Home Medications: Ambulatory Orders Amlodipine Besylate [Norvasc -] 10 mg PO DAILY #30 tablet 05/21/20 Aspirin [ASA -] 81 mg PO DAILY #30 tab.chew 05/21/20 Atorvastatin Ca [Lipitor] 80 mg PO HS #30 tablet 05/21/20 Labetalol HCl [Normodyne -] 200 mg PO BID #60 tablet 05/21/20 Glimepiride 1 mg PO DAILY #30 tablet 05/28/20 Hydralazine HCl 50 mg PO TID 08/08/20 Losartan Potassium 100 mg PO DAILY 08/08/20 Family Medical History Family Hx Cardiac Disorders: Mother (Heart Failure) Family Hx Respiratory Disorders: Mother (COPD) Review of Systems - Review of Systems Constitutional: reports: No Symptoms Eyes: reports: No Symptoms HENT: reports: No Symptoms Neck: reports: No Symptoms Cardiovascular: reports: No Symptoms Respiratory: reports: Exercise Intolerance Gastrointestinal: reports: No Symptoms Genitourinary: reports: No Symptoms Breasts: reports: No Symptoms Reported Musculoskeletal: reports: No Symptoms Integumentary: reports: No Symptoms Neurological: reports: No Symptoms Endocrine: reports: No Symptoms Hematology/Lymphatic: reports: No Symptoms Psychiatric: reports: No Symptoms - Risk Factors Known Risk Factors: Yes: Age, Hypercholesterolemia, Hypertension, Physical Inactivity, Race, Other (family hx CAD/CHF) Vital Signs: Vital Signs Temperature 98.1 F 08/08/20 09:05 Pulse Rate 82 08/08/20 09:05 Respiratory Rate 20 08/08/20 09:05 Blood Pressure 153/88 08/08/20 09:05 O2 Sat by Pulse Oximetry (%) 99 08/08/20 09:05 Constitutional: Yes: Calm, Obese Eyes: Yes: WNL HENT: Yes: WNL Neck: Yes: WNL Respiratory: Yes: WNL Gastrointestinal: Yes: Soft, Abdomen, Obese Renal/: No: Anuria Cardiovascular: Yes: WNL Heart Sounds: Yes: S1, S2, S4 Murmur: Yes: Systolic Murmur, Grade 1 Musculoskeletal: Yes: WNL Extremities: Yes: WNL Edema: No Peripheral Pulses WNL: Yes Integumentary: Yes: WNL Neurological: Yes: WNL ...Motor Strength: WNL Psychiatric: Yes: WNL - Other Data Labs, Other Data: CBC, BMP 08/08/20 06:25 08/08/20 06:25 Troponin, BNP 08/07/20 08/08/20 08/08/20 22:50 02:51 06:25 Troponin I 0.13 H 0.13 H 0.08 H Troponin, BNP 08/07/20 08/08/20 08/08/20 22:50 02:51 06:25 Troponin I 0.13 H 0.13 H 0.08 H Abnormal Lab Results 08/07/20 08/07/20 08/08/20 22:50 22:50 02:51 RDW 16.4 H Chloride 108 H Anion Gap 7 L Calcium 10.2 H Creatine Kinase 372 H Troponin I 0.13 H 0.13 H Total LDL Cholesterol 08/08/20 08/08/20 06:25 06:25 RDW 16.1 H Chloride 109 H Anion Gap 5 L Calcium Creatine Kinase Troponin I 0.08 H Total LDL Cholesterol 128 H Echo: Report Reviewed Ejection Fraction %: LVEF > or = 40 % Imaging - Results Chest X-ray: Image Reviewed EKG: Image Reviewed Assessment/Plan Uncontrolled HTN obesity chronically elevated TNI: likely secondary to demand ischemia, principally for markedly elevated BP HDL borderline elevated HGBA1c negative stress MIBI 04/2020 normal TSH elevated PTH Pl: On hydralazine; increase dose as needed. On labetolol: increase dose as needed. On losartan On furosemide; change to daily thiazide diuretic, e.g., chlorthalidone 25-50 mg daily. ECHO: normal LVEF; borderline LVH. Increase atorvastatin dose (LDL 128; HDL 40s mg/dL) COVID pending. Dietary consult. Plan for increase in exercise.
--- NOTE | 2020-08-08 09:53 | EKG ---
Test Reason : Blood Pressure : / mmHG Vent. Rate : 078 BPM Atrial Rate : 078 BPM P-R Int : 180 ms QRS Dur : 082 ms QT Int : 384 ms P-R-T Axes : 054 013 076 degrees QTc Int : 437 ms POOR DATA QUALITY, INTERPRETATION MAY BE ADVERSELY AFFECTED NORMAL SINUS RHYTHM POSSIBLE LEFT ATRIAL ENLARGEMENT ANTEROSEPTAL INFARCT (CITED ON OR BEFORE 03-APR-2015) ABNORMAL ECG WHEN COMPARED WITH ECG OF 25-MAY-2020 17:50, QUESTIONABLE CHANGE IN INITIAL FORCES OF ANTERIOR LEADS Confirmed by JENNY HU MD ([id number]) on 08/08/2020 9:53:21 AM Referred By: Confirmed By:JENNY HU MD
[2020-08-08] MEDS ORDERED: ENOXAPARIN NA (PORCINE) 40 MG/0.4 ML DISP.SYRIN SQ SCH (10:00)
[2020-08-08] MEDS ORDERED: CHLORTHALIDONE 25 MG TABLET PO SCH (11:15)
--- NOTE | 2020-08-08 11:56 | DS ---
Physical Exam: SUBJECTIVE: Patient seen and examined OBJECTIVE: Vital Signs Period Temp Pulse Resp BP Sys/Garcia Pulse Ox Last 24 Hr 98.1 F-98.1 F 78-84 18-20 142-246/88-126 96-100 PHYSICAL EXAM GENERAL: The patient is awake, alert, and fully oriented, in no acute distress. HEAD: Normal with no signs of trauma. EYES: PERRL, extraocular movements intact, sclera anicteric, conjunctiva clear. ENT: Ears normal, nares patent, oropharynx clear without exudates, moist mucous membranes. NECK: Trachea midline, full range of motion, supple. LUNGS: Breath sounds equal, clear to auscultation bilaterally, no wheezes, no crackles, no accessory muscle use. HEART: Regular rate and rhythm, S1, S2 without murmur, rub or gallop. ABDOMEN: Soft, nontender, nondistended, normoactive bowel sounds, no guarding, no rebound, no hepatosplenomegaly, no masses. EXTREMITIES: 2+ pulses, warm, well-perfused, no edema. NEUROLOGICAL: Cranial nerves II through XII grossly intact. Normal speech, gait not observed. PSYCH: Normal mood, normal affect. SKIN: Warm, dry, normal turgor, no rashes or lesions noted. LABS Laboratory Results - last 24 hr 08/07/20 08/07/20 08/08/20 22:50 22:50 02:51 WBC 7.7 RBC 4.53 Hgb 13.3 Hct 40.7 MCV 89.9 MCH 29.4 MCHC 32.7 RDW 16.4 H Plt Count 265 MPV 10.3 Absolute Neuts (auto) Neutrophils % Lymphocytes % Monocytes % Eosinophils % Basophils % Nucleated RBC % Sodium 140 Potassium 4.4 Chloride 108 H Carbon Dioxide 26 Anion Gap 7 L BUN 14.8 Creatinine 1.0 Est GFR (CKD-EPI)AfAm 74.49 Est GFR (CKD-EPI)NonAf 64.27 POC Glucometer Random Glucose 85 Hemoglobin A1c % Calcium 10.2 H Phosphorus Magnesium Total Bilirubin 0.3 AST 23 ALT 30 Alkaline Phosphatase 111 Creatine Kinase 372 H Creatine Kinase Index 0.7 CK-MB (CK-2) 2.8 Troponin I 0.13 H 0.13 H Total Protein 8.0 Albumin 4.3 Triglycerides Cholesterol Total LDL Cholesterol HDL Cholesterol 08/08/20 08/08/20 08/08/20 06:25 06:25 06:25 WBC 6.3 RBC 4.09 Hgb 11.8 Hct 36.2 MCV 88.7 MCH 29.0 MCHC 32.7 RDW 16.1 H Plt Count 233 MPV 9.9 Absolute Neuts (auto) 3.7 Neutrophils % 59.5 Lymphocytes % 28.5 Monocytes % 8.5 Eosinophils % 2.4 Basophils % 1.1 Nucleated RBC % 0 Sodium 141 Potassium 4.1 Chloride 109 H Carbon Dioxide 27 Anion Gap 5 L BUN 14.4 Creatinine 1.0 Est GFR (CKD-EPI)AfAm 74.49 Est GFR (CKD-EPI)NonAf 64.27 POC Glucometer Random Glucose 92 Hemoglobin A1c % 6.3 Calcium 9.5 Phosphorus 3.6 Magnesium 2.0 Total Bilirubin AST ALT Alkaline Phosphatase Creatine Kinase Creatine Kinase Index CK-MB (CK-2) Troponin I 0.08 H Total Protein Albumin Triglycerides 140 Cholesterol 198 Total LDL Cholesterol 128 H HDL Cholesterol 46 08/08/20 07:33 WBC RBC Hgb Hct MCV MCH MCHC RDW Plt Count MPV Absolute Neuts (auto) Neutrophils % Lymphocytes % Monocytes % Eosinophils % Basophils % Nucleated RBC % Sodium Potassium Chloride Carbon Dioxide Anion Gap BUN Creatinine Est GFR (CKD-EPI)AfAm Est GFR (CKD-EPI)NonAf POC Glucometer 90 Random Glucose Hemoglobin A1c % Calcium Phosphorus Magnesium Total Bilirubin AST ALT Alkaline Phosphatase Creatine Kinase Creatine Kinase Index CK-MB (CK-2) Troponin I Total Protein Albumin Triglycerides Cholesterol Total LDL Cholesterol HDL Cholesterol HOSPITAL COURSE: Date of Admission:08/08/20 Date of Discharge: 08/08/20 Minutes to complete discharge: 36 Discharge Summary Problems reviewed: Yes Reason For Visit: CHEST PAIN,HYPERTENSION Current Active Problems Chest pain (Acute) Condition: Improved - Instructions Diet, Activity, Other Instructions: You were in the ER when you became light headed and your blood pressure was found to be 246/126.. You were admitted to the hospital, and continued on your blood pressure medications. You are now stable for discharge Please continue your home medications as prescribed. Your dose of atorvastatin is increased to 40 mg nightly Please ensure to take your medications daily so that these symptoms do not recur, and your blood pressure stays under control. Please monitor your blood pressure daily at home. Please be sure to follow a healthy, low sodium diet . Please be sure to incorporate more exercise into your lifestyle Please follow up with your primary care physician, Dr. Torres, within 1 week for your overall health management. Please follow up with your door to door salesperson, Dr. Sommers, within 1 week. Please follow up with your pallet assembler, Dr. Butler within 1-2 weeks. If you have any new, changing or worsening symptoms please return to the ED or call 911. Referrals: Aries Sommers MD [Staff Physician] - Michelle Torres MD [Primary Care Provider] - Eleazar Butler MD [Staff Physician] - Disposition: HOME - Home Medications Comprehensive Discharge Medication List: Ambulatory Orders Amlodipine Besylate [Norvasc -] 10 mg PO DAILY #30 tablet 05/21/20 Aspirin [ASA -] 81 mg PO DAILY #30 tab.chew 05/21/20 Atorvastatin Ca [Lipitor] 80 mg PO HS #30 tablet 05/21/20 Labetalol HCl [Normodyne -] 200 mg PO BID #60 tablet 05/21/20 Glimepiride 1 mg PO DAILY #30 tablet 05/28/20 Hydralazine HCl 50 mg PO TID 08/08/20 Losartan Potassium 100 mg PO DAILY 08/08/20 This patient is new to me today: No Emergency Visit: Yes ED Registration Date: 08/08/20 Care time: The patient presented to the Emergency Department on the above date and was hospitalized for further evaluation of their emergent condition. Critical Care patient: No - Discharge Referral Referred to [facility] No ATTENDING PHYSICIAN STATEMENT I saw and evaluated the patient. I reviewed the resident's note and discussed the case with the resident. I agree with the resident's findings and plan as documented. SUBJECTIVE: OBJECTIVE: ASSESSMENT AND PLAN:
--- NOTE | 2020-08-08 11:57 | PN ---
Teaching Attending Note Name of Resident: Apryl Triplett ATTENDING PHYSICIAN STATEMENT I saw and evaluated the patient. I reviewed the resident's note and discussed the case with the resident. I agree with the resident's findings and plan as documented. SUBJECTIVE: pt seen and examined OBJECTIVE: Last Vital Signs Temp Pulse Resp BP Pulse Ox 98.1 F 82 20 153/88 99 08/08/20 09:05 08/08/20 09:05 08/08/20 09:05 08/08/20 09:05 08/08/20 09:05 GENERAL: Awake, alert, and fully oriented, in no acute distress. Obsese HEAD: Normal with no signs of trauma. EYES: Pupils equal, round and reactive to light, sclera anicteric, conjunctiva clear. LUNGS: Breath sounds equal, clear to auscultation bilaterally. No wheezes, and no crackles. No accessory muscle use. HEART: Regular rate and rhythm, normal S1 and S2 ABDOMEN: Soft, nontender, not distended MUSCULOSKELETAL: Normal range of motion at all joints. No bony deformities or tenderness. No CVA tenderness. UPPER EXTREMITIES: 2+ pulses, warm, well-perfused. No cyanosis. No clubbing. No peripheral edema. LOWER EXTREMITIES: 2+ pulses, warm, well-perfused. No calf tenderness. No peripheral edema. NEUROLOGICAL: Cranial nerves II-XII intact. Normal speech. CBCD WBC 6.3 K/mm3 (4.0-10.0) 08/08/20 06:25 RBC 4.09 M/mm3 (3.60-5.2) 08/08/20 06:25 Hgb 11.8 GM/dL (10.7-15.3) 08/08/20 06:25 Hct 36.2 % (32.4-45.2) 08/08/20 06:25 MCV 88.7 fl (80-96) 08/08/20 06:25 MCHC 32.7 g/dl (32.0-36.0) 08/08/20 06:25 RDW 16.1 % (11.6-15.6) H 08/08/20 06:25 Plt Count 233 K/MM3 (134-434) 08/08/20 06:25 MPV 9.9 fl (7.5-11.1) 08/08/20 06:25 CMP Sodium 141 mmol/L (136-145) 08/08/20 06:25 Potassium 4.1 mmol/L (3.5-5.1) 08/08/20 06:25 Chloride 109 mmol/L (98-107) H 08/08/20 06:25 Carbon Dioxide 27 mmol/L (21-32) 08/08/20 06:25 Anion Gap 5 MMOL/L (8-16) L 08/08/20 06:25 BUN 14.4 mg/dL (7-18) 08/08/20 06:25 Creatinine 1.0 mg/dL (0.55-1.3) 08/08/20 06:25 Calcium 9.5 mg/dL (8.5-10.1) 08/08/20 06:25 Total Bilirubin 0.3 mg/dL (0.2-1) 08/07/20 22:50 AST 23 U/L (15-37) 08/07/20 22:50 ALT 30 U/L (13-61) 08/07/20 22:50 Alkaline Phosphatase 111 U/L (45-117) 08/07/20 22:50 Total Protein 8.0 g/dl (6.4-8.2) 08/07/20 22:50 Albumin 4.3 g/dl (3.4-5.0) 08/07/20 22:50 Active Medications Atorvastatin Calcium (Lipitor -) [address] [facility] Chlorthalidone (Hygroton -) 25 mg PO DAILY [facility] Last Admin: 08/08/20 11:33 Dose: 25 mg Documented by: Heparin Sodium (Porcine) (Heparin -) 5,000 unit SQ TID [facility] Last Admin: 08/08/20 05:34 Dose: 5,000 unit Documented by: Insulin Aspart (Novolog Vial Sliding Scale -) 1 vial SQ [facility]; Protocol Last Admin: 08/08/20 07:30 Dose: Not Given Documented by: Labetalol HCl (Normodyne -) 200 mg PO TID [facility] Last Admin: 08/08/20 05:34 Dose: 200 mg Documented by: Losartan Potassium (Cozaar -) [address] [facility] ASSESSMENT AND PLAN: 55 year old female patient with past medical history that includes HTN, morbid obesity, DM, and HLD, who presented to the emergency room with family member and then was found to have HTN urgency. # HTN urgency - resolved BP 153/88, pt asymptomatic missed her evening dose when she was in ED discussed DASH diet, medication compliance, and exercise Cardiology consult appreciated Nephrology consult appreciated case discussed with consults DM HLD morbid obesity DVT prophylaxis
[2020-08-08 12:01] VITALS: BP 148/96; PULSE 84
--- NOTE | 2020-08-08 13:05 | CONSULT ---
Consultation: REQUESTING PROVIDER: Nephrology service- resident consult note CONSULT REQUEST: We have been asked to medically evaluate this patient for hypertension HISTORY OF PRESENT ILLNESS: Patient is a 55 year old female with history of hypertension, hyperlipidemia, diabetes mellitus, presented to ED with complaints of lightheadedness. Noted to be hypertensive to 246/ 126mmHg in the ED. Patient states she is adherent with her home antihypertensive regimen, and checks ambulatory blood pressure with re adings of 120-140/ 80-90mmHg. She endorses follow up with Principal Cyber Engineer in [facility], and has appointment scheduled for next week. Patient admits that she missed her afternoon Labetalol and Hydralazine as she had to leave work to immediately bring her mother to the hospital. She denies subjective fevers, chills, shotness of breath, chest pain, palpitations, abdominal pain, nausea, vomiting. Past medical history: hypertension, hyperlipidemia, diabetes mellitus Past surgical history: fibroid embolization, tubal ligation, X3 Family history Social:endorses 1-2 drinks on social occasion. Denies smoking cigarettes, denies illicit drug use. 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 REVIEW OF SYSTEMS: As per HPI PHYSICAL EXAMINATION Vital Signs - 24 hr 08/07/20 08/07/20 08/08/20 21:47 22:30 02:49 Temperature 98.1 F Pulse Rate 84 Pulse Rate [ 80 Left] Respiratory 20 18 Rate Blood Pressure 246/126 H 160/102 H Blood Pressure 219/120 H [Right Arm] O2 Sat by Pulse 100 96 Oximetry (%) 08/08/20 08/08/20 08/08/20 05:43 09:05 11:55 Temperature 98.1 F Pulse Rate Pulse Rate [ 78 82 84 Left] Respiratory 20 20 18 Rate Blood Pressure Blood Pressure 142/125 H 153/88 148/96 [Right Arm] O2 Sat by Pulse 96 99 98 Oximetry (%) GENERAL: The patient is awake, alert, and fully oriented, in no acute distress. HEAD: Normocephalic, atraumatic. EYES: PERRL, extraocular movements intact, sclera anicteric, conjunctiva clear. ENT: Oropharynx clear, without erythema or exudates. Moist mucous membranes. NECK: Trachea midline, full range of motion. Supple without lymphadenopathy. LUNGS: Breath sounds equal, clear to auscultation bilaterally. No wheezes, no crackles. No accessory muscle use. HEART: Regular rate and rhythm. S1, S2 without murmur, rub or gallop. ABDOMEN: Soft, nondistended, nontender to light and deep palpation x4 quadrants. No rebound tenderness, no guarding. Normoactive bowel sounds x4 quadrants. No hepatosplenomegaly, no masses appreciated. EXTREMITIES: 2+ radial, dorsalis pedis pulses bilaterally. Warm, well-perfused. No lower extremity edema bilaterally. NEUROLOGICAL: Cranial nerves II through XII grossly intact. Normal speech. No gross focal deficits. PSYCH: Normal mood, normal affect upon my encounter. SKIN: Warm, dry. Laboratory Results - last 24 hr 08/07/20 08/07/20 08/08/20 22:50 22:50 02:51 WBC 7.7 RBC 4.53 Hgb 13.3 Hct 40.7 MCV 89.9 MCH 29.4 MCHC 32.7 RDW 16.4 H Plt Count 265 MPV 10.3 Absolute Neuts (auto) Neutrophils % Lymphocytes % Monocytes % Eosinophils % Basophils % Nucleated RBC % Sodium 140 Potassium 4.4 Chloride 108 H Carbon Dioxide 26 Anion Gap 7 L BUN 14.8 Creatinine 1.0 Est GFR (CKD-EPI)AfAm 74.49 Est GFR (CKD-EPI)NonAf 64.27 POC Glucometer Random Glucose 85 Hemoglobin A1c % Calcium 10.2 H Phosphorus Magnesium Total Bilirubin 0.3 AST 23 ALT 30 Alkaline Phosphatase 111 Creatine Kinase 372 H Creatine Kinase Index 0.7 CK-MB (CK-2) 2.8 Troponin I 0.13 H 0.13 H Total Protein 8.0 Albumin 4.3 Triglycerides Cholesterol Total LDL Cholesterol HDL Cholesterol 08/08/20 08/08/20 08/08/20 06:25 06:25 06:25 WBC 6.3 RBC 4.09 Hgb 11.8 Hct 36.2 MCV 88.7 MCH 29.0 MCHC 32.7 RDW 16.1 H Plt Count 233 MPV 9.9 Absolute Neuts (auto) 3.7 Neutrophils % 59.5 Lymphocytes % 28.5 Monocytes % 8.5 Eosinophils % 2.4 Basophils % 1.1 Nucleated RBC % 0 Sodium 141 Potassium 4.1 Chloride 109 H Carbon Dioxide 27 Anion Gap 5 L BUN 14.4 Creatinine 1.0 Est GFR (CKD-EPI)AfAm 74.49 Est GFR (CKD-EPI)NonAf 64.27 POC Glucometer Random Glucose 92 Hemoglobin A1c % 6.3 Calcium 9.5 Phosphorus 3.6 Magnesium 2.0 Total Bilirubin AST ALT Alkaline Phosphatase Creatine Kinase Creatine Kinase Index CK-MB (CK-2) Troponin I 0.08 H Total Protein Albumin Triglycerides 140 Cholesterol 198 Total LDL Cholesterol 128 H HDL Cholesterol 46 08/08/20 08/08/20 07:33 11:56 WBC RBC Hgb Hct MCV MCH MCHC RDW Plt Count MPV Absolute Neuts (auto) Neutrophils % Lymphocytes % Monocytes % Eosinophils % Basophils % Nucleated RBC % Sodium Potassium Chloride Carbon Dioxide Anion Gap BUN Creatinine Est GFR (CKD-EPI)AfAm Est GFR (CKD-EPI)NonAf POC Glucometer 90 117 Random Glucose Hemoglobin A1c % Calcium Phosphorus Magnesium Total Bilirubin AST ALT Alkaline Phosphatase Creatine Kinase Creatine Kinase Index CK-MB (CK-2) Troponin I Total Protein Albumin Triglycerides Cholesterol Total LDL Cholesterol HDL Cholesterol ASSESSMENT/PLAN: Patient is a 55 year old female with history of hypertension, hyperlipidemia, diabetes mellitus, presented to ED with complaints of lightheadedness. Impression: Hypertensive urgency Hyperlipidemia Diabetes mellitus Chronic troponin elevation Obesity Plan: Reinstate home antihypertensives regimen. Blood pressure currently well controlled. Monitor vitals closely Discussed importance of medication adherence, and strict blood pressure control (BP les than 130/80mmHg). Counseled to keep a log of BP readings to discuss with primary care physician, thermodynamics teacher. Nephrology outpatient follow up. Will need to work up for secondary causes of hypertension. She was counselled to keep her scheduled appointment next week. Disposition: Thank you for this consultative opportunity. Visit type - Emergency Visit Emergency Visit: Yes ED Registration Date: 08/08/20 Care time: The patient presented to the Emergency Department on the above date and was hospitalized for further evaluation of their emergent condition. - New Patient This patient is new to me today: Yes Date on this admission: 08/08/20 - Critical Care Critical Care patient: No ATTENDING PHYSICIAN STATEMENT I saw and evaluated the patient. I reviewed the resident's note and discussed the case with the resident. I agree with the resident's findings and plan as documented. SUBJECTIVE: OBJECTIVE: ASSESSMENT AND PLAN:
[2020-08-08] MEDS ORDERED: ATORVASTATIN CA 40 MG TABLET (FP) PO SCH (22:00)
[2020-08-08] MEDS ORDERED: LOSARTAN POTASSIUM 50 MG TABLET (FP) PO SCH (22:00)
== END 2020-08-08 12:02 | disposition home or self-care (01) | DRG 305 ==
LOC: JER 21:40 → JERBED 08-08 00:19
PROVIDERS: ADMIT Internal Medicine; ATTEND Student in an Organized Health Care Education/Training Program
DX: I16.0 Hypertensive urgency (principal); I24.8 Other forms of acute ischemic heart disease; R07.89 Other chest pain; E78.5 Hyperlipidemia, unspecified; E66.9 Obesity, unspecified; Z68.38 Body mass index [BMI] 38.0-38.9, adult; I12.9 Hypertensive chronic kidney disease with stage 1 through stage 4 chronic kidney disease, or unspecified chronic kidney disease; E11.22 Type 2 diabetes mellitus with diabetic chronic kidney disease; N18.9 Chronic kidney disease, unspecified; R51 Headache
CPT/HCPCS: 36415; 71045-TC-FY; 80048; 80053; 80061; 82550; 82553; 82962; 83036; 83721; 83735; 84100; 84484; 85025; 85027; 93005; 93010; 99285-25; J1644; U0003

== ENCOUNTER 2021-02-05 20:57 | Emergency (ER) | payer OTHER ==
[2021-02-05 21:05] VITALS: BMI 37.3
[2021-02-05] MEDS ORDERED: ACETAMINOPHEN 1000 MG/100 ML VIAL (NON FORMULARY) IVPB ONE ×2 (22:42→23:44)
[2021-02-05] MEDS ORDERED: METOCLOPRAMIDE HCL INJECTION 10 MG/2 ML VIAL IVPUSH ONE ×2 (22:42→23:44)
[2021-02-05] MEDS ORDERED: ACETAMINOPHEN INJECTION 100 ML IVPB ONE (23:01)
[2021-02-05] MEDS ORDERED: METOCLOPRAMIDE HCL INJECTION 10 MG/2 ML VIAL ONE (23:01)
[2021-02-05] MEDS ORDERED: ACETAMINOPHEN 325 MG TABLET (FP) PO ONE (23:27)
[2021-02-05] MEDS ORDERED: METOCLOPRAMIDE HCL 10 MG TABLET (FP) PO ONE (23:27)
[2021-02-05 23:35] LABS: BASO % 1.2 % (0-2.0); EOS % 1.6 % (0-4.5); HEMATOCRIT 42.5 % (32.4-45.2); LYMPH % 25.9 % (8-40); MCH 28.6 pg (25.7-33.7); MCHC 32.8 g/dl (32.0-36.0); MEAN CELL VOLUME 87.1 fl (80-96); MEAN PLT VOLUME 9.9 fl (7.5-11.1); MONO % 7.7 % (3.8-10.2); NEUT % 63.6 % (42.8-82.8); PLATELET COUNT 292 K/MM3 (134-434); RBC 4.88 M/mm3 (3.60-5.2); RDW 14.7 % (11.6-15.6); WHITE BLOOD COUNT 8.4 K/mm3 (4.0-10.0)
[2021-02-05 23:48] LABS: POTASSIUM 5.4 mmol/L (3.5-5.1)
[2021-02-05 23:50] LABS: CALCIUM 11.6 mg/dL (8.5-10.1)
[2021-02-05 23:51] LABS: ALBUMIN 4.1 g/dl (3.4-5.0); BLOOD UREA NITROGEN 22.3 mg/dL (7-18)
[2021-02-05 23:54] LABS: CREATININE 1.3 mg/dL (0.55-1.3)
[2021-02-05 23:55] LABS: BILIRUBIN,TOTAL 0.4 mg/dL (0.2-1)
[2021-02-06] MEDS ORDERED: SODIUM CHLORIDE 0.9% 1000 ML INFUS.BAG IV ONE (00:09)
[2021-02-06 00:23] VITALS: BP 142/94
[2021-02-06 00:29] VITALS: PULSE 97; TEMP 98.2
== END 2021-02-06 00:45 | disposition home or self-care (01) ==
LOC: JER 20:57
PROC: 3E0333Z Introduction of Anti-inflammatory into Peripheral Vein, Percutaneous Approach (ICD-10-PCS; principal; 2021-02-05)
PROC: 3E033GC Introduction of Other Therapeutic Substance into Peripheral Vein, Percutaneous Approach (ICD-10-PCS; 2021-02-05)
DX: R51.9 Headache, unspecified (principal); R07.9 Chest pain, unspecified; R73.9 Hyperglycemia, unspecified
CPT/HCPCS: 36415; 71046-TC-FY; 80053; 82550; 82553; 84484; 85025; 93005; 93010; 99285-25; J0131

== ENCOUNTER 2021-04-29 09:41 | Emergency (ER) | payer OTHER ==
[2021-04-29 09:49] VITALS: BP 193/132; PULSE 93; TEMP 98.3; BMI 37.5
[2021-04-29] MEDS ORDERED: ACETAMINOPHEN 325 MG TABLET (FP) PO ONE (10:31)
[2021-04-29] MEDS ORDERED: IBUPROFEN 400 MG TABLET (FP) PO ONE ×2 (10:33→10:40)
[2021-04-29] MEDS ORDERED: ACETAMINOPHEN 325 MG TABLET (FP) ONE (10:40)
== END 2021-04-29 12:32 | disposition home or self-care (01) ==
LOC: JER 09:41
DX: R51.9 Headache, unspecified (principal)
CPT/HCPCS: 99284-25

== ENCOUNTER 2021-11-15 08:21 | Emergency (ER) | payer OTHER ==
[2021-11-15 08:31] VITALS: BP 153/87; PULSE 86; TEMP 97.9; BMI 37.3
[2021-11-15] MEDS ORDERED: DEXAMETHASONE LIQUID 0.5 MG/5 ML PO ONE (09:14)
[2021-11-15] MEDS ORDERED: FAMOTIDINE 20 MG TABLET PO ONE (09:15)
[2021-11-15] MEDS ORDERED: diphenhydrAMINE HCL 25 MG CAPSULE (FP) PO ONE ×2 (09:15→09:22)
[2021-11-15] MEDS ORDERED: DEXAMETHASONE SOD PHOSPHATE 10 MG/1 ML VIAL ONE (09:22)
[2021-11-15] MEDS ORDERED: FAMOTIDINE 20 MG TABLET ONE (09:22)
== END 2021-11-15 09:41 | disposition home or self-care (01) ==
LOC: JER 08:21 → JERFT 08:21
DX: T78.40XA Allergy, unspecified, initial encounter (principal)
CPT/HCPCS: 99283-25

== ENCOUNTER 2022-07-07 07:54 | Inpatient (IN) | payer OTHER ==
[2022-07-07] MEDS ORDERED: ACETAMINOPHEN 325 MG TABLET (FP) PO ONE (08:21)
[2022-07-07] MEDS ORDERED: METOCLOPRAMIDE HCL INJECTION 10 MG/2 ML VIAL IVPB ONE (08:21)
[2022-07-07 08:40] LABS: HEMATOCRIT 41.4 % (32.4-45.2); HEMOGLOBIN 13.8 GM/dL (10.7-15.3); MCH 28.3 pg (25.7-33.7); MCHC 33.4 g/dl (32.0-36.0); MEAN CELL VOLUME 84.6 fl (80-96); MEAN PLT VOLUME 9.8 fl (7.5-11.1); PLATELET COUNT 260 10^3/uL (134-434); RDW 16.4 % (11.6-15.6); WHITE BLOOD COUNT 6.5 K/mm3 (4.0-10.0)
[2022-07-07] MEDS ORDERED: LOSARTAN POTASSIUM 50 MG TABLET ONE ×2 (08:58→09:05)
[2022-07-07] MEDS ORDERED: hydrALAZINE HCL 25 MG TABLET (FP) ONE (08:58)
[2022-07-07] MEDS ORDERED: METOCLOPRAMIDE HCL INJECTION 10 MG/2 ML VIAL ONE (08:58)
[2022-07-07] MEDS ORDERED: ACETAMINOPHEN 325 MG TABLET (FP) ONE ×2 (08:58→22:36)
[2022-07-07 08:59] LABS: CHLORIDE 107 mmol/L (98-107); SODIUM 139 mmol/L (136-145)
[2022-07-07 09:01] LABS: BLOOD UREA NITROGEN 14.5 mg/dL (7-18)
[2022-07-07 09:02] LABS: ALBUMIN 3.9 g/dl (3.4-5.0); ANION GAP 8 MMOL/L (8-16); CO2 24 mmol/L (21-32); GLUCOSE,RANDOM 86 mg/dL (74-106); MAGNESIUM 2.2 mg/dL (1.8-2.4)
[2022-07-07 09:04] LABS: SGPT/ALT 32 U/L (13-61)
[2022-07-07 09:05] LABS: SGOT/AST 48 U/L (15-37)
[2022-07-07] MEDS ORDERED: LOSARTAN POTASSIUM 50 MG TABLET PO ONE (09:05)
[2022-07-07] MEDS ORDERED: hydrALAZINE HCL 50 MG TABLET (FP) PO ONE (09:05)
[2022-07-07 09:06] LABS: BILIRUBIN,TOTAL 0.6 mg/dL (0.2-1)
[2022-07-07 09:07] LABS: ALK PHOS 96 U/L (45-117)
[2022-07-07] MEDS ORDERED: ASPIRIN 81 MG CHEWABLE TABLETS PO ONE (09:54)
[2022-07-07] MEDS ORDERED: ASPIRIN 81 MG CHEWABLE TABLETS ONE (10:13)
[2022-07-07 10:33] LABS: ANISOCYTOSIS 0; HELMET CELLS 0; HOWELL-JOLLY BODIES 0; MACROCYTOSIS 0; OVALOCYTE 0; ROULEAU 0; SICKELED CELLS 0; TARGET CELLS 0; TEAR DROP CELLS 0; TOXIC GRANULATION 0
[2022-07-07] MEDS ORDERED: LABETALOL HCL 5 MG/1 ML (100MG/20 ML VIAL) IVPUSH ONE ×2 (11:10→11:11)
[2022-07-07] MEDS ORDERED: LABETALOL HCL 5 MG/1 ML (100MG/20 ML VIAL) ONE (11:13)
[2022-07-07] MEDS ORDERED: LABETALOL HCL 100 MG TABLET (FP) PO ONE (11:44)
[2022-07-07] MEDS ORDERED: LABETALOL HCL 100 MG TABLET (FP) ONE ×2 (11:53→22:32)
[2022-07-07] MEDS ORDERED: LABETALOL HCL 5 MG/1 ML (100MG/20 ML VIAL) IVPUSH PRN (15:13)
[2022-07-07] MEDS ORDERED: ACETAMINOPHEN 325 MG TABLET (FP) PO PRN (15:18)
[2022-07-07] MEDS: INSULIN SLIDING SCALE (NOVOLOG) 1 VIAL SQ SCH ×2 (20:59→22:29)
[2022-07-07] MEDS ORDERED: LABETALOL HCL 100 MG TABLET (FP) PO SCH (22:00)
[2022-07-07] MEDS ORDERED: hydrALAZINE HCL 50 MG TABLET (FP) ONE (22:33)
[2022-07-07] MEDS ORDERED: ATORVASTATIN CA 40 MG TABLET (FP) ONE (22:33)
[2022-07-07] MEDS: ATORVASTATIN CA 20 MG TABLET (FP) PO SCH (22:40)
[2022-07-07] MEDS: hydrALAZINE HCL 50 MG TABLET (FP) PO SCH (22:40)
[2022-07-08 00:16] VITALS: BMI 36.3
[2022-07-08] MEDS: hydrALAZINE HCL 50 MG TABLET (FP) PO SCH ×3 (06:41→21:52)
[2022-07-08] MEDS: INSULIN SLIDING SCALE (NOVOLOG) 1 VIAL SQ SCH ×4 (06:41→21:53)
[2022-07-08 06:57] LABS: BASO % 0.9 % (0-2.0); EOS % 1.2 % (0-4.5); HEMATOCRIT 38.4 % (32.4-45.2); HEMOGLOBIN 12.8 GM/dL (10.7-15.3); LYMPH % 25.7 % (8-40); MCH 28.5 pg (25.7-33.7); MCHC 33.3 g/dl (32.0-36.0); MEAN CELL VOLUME 85.6 fl (80-96); MEAN PLT VOLUME 9.1 fl (7.5-11.1); MONO % 7.6 % (3.8-10.2); NEUT % 64.6 % (42.8-82.8); PLATELET COUNT 259 10^3/uL (134-434); RBC 4.48 M/mm3 (3.60-5.2); RDW 16.1 % (11.6-15.6); WHITE BLOOD COUNT 5.8 K/mm3 (4.0-10.0)
[2022-07-08 07:21] LABS: ALBUMIN 3.5 g/dl (3.4-5.0); CALCIUM 9.7 mg/dL (8.5-10.1)
[2022-07-08 07:22] LABS: BLOOD UREA NITROGEN 17.2 mg/dL (7-18); MAGNESIUM 2.2 mg/dL (1.8-2.4)
[2022-07-08 07:24] LABS: PHOSPHOROUS 4.1 mg/dL (2.5-4.9)
[2022-07-08 07:25] LABS: CREATININE 0.9 mg/dL (0.55-1.3)
[2022-07-08 07:26] LABS: BILIRUBIN,TOTAL 0.5 mg/dL (0.2-1); TOT PROT 6.6 g/dl (6.4-8.2)
[2022-07-08] MEDS: LABETALOL HCL 100 MG TABLET (FP) PO SCH ×2 (09:13→21:53)
[2022-07-08] MEDS: ASPIRIN COATED 81 MG TABLET.EC PO SCH (09:13)
[2022-07-08] MEDS: LOSARTAN POTASSIUM 50 MG TABLET PO SCH (09:13)
[2022-07-08] MEDS: ENOXAPARIN NA (PORCINE) 40 MG/0.4 ML DISP.SYRIN SQ SCH (09:13)
[2022-07-08] MEDS: ATORVASTATIN CA 20 MG TABLET (FP) PO SCH (21:52)
[2022-07-09] MEDS: hydrALAZINE HCL 50 MG TABLET (FP) PO SCH ×2 (06:02→14:29)
[2022-07-09] MEDS: INSULIN SLIDING SCALE (NOVOLOG) 1 VIAL SQ SCH ×3 (06:06→15:50)
[2022-07-09 06:08] VITALS: TEMP 98.2
[2022-07-09 09:47] VITALS: BP 159/86; PULSE 90; RESP 16
[2022-07-09 10:29] LABS: CHOLESTEROL 228 mg/dL (50-200)
[2022-07-09 10:30] LABS: LDL CHOLESTEROL (ONLY SJRH) 151 mg/dL (5-100); TRIGLYCERIDES 142 mg/dL (0-150)
[2022-07-09] MEDS: LOSARTAN POTASSIUM 50 MG TABLET PO SCH (10:30)
[2022-07-09 10:33] LABS: HDL CHOLESTEROL 49 mg/dL (40-60)
[2022-07-09] MEDS: LABETALOL HCL 100 MG TABLET (FP) PO SCH (14:27)
[2022-07-09] MEDS: ASPIRIN COATED 81 MG TABLET.EC PO SCH (14:28)
[2022-07-09] MEDS: ENOXAPARIN NA (PORCINE) 40 MG/0.4 ML DISP.SYRIN SQ SCH (14:29)
[2022-07-09] MEDS ORDERED: amLODIPine BESYLATE 2.5 MG TABLET (FP) PO SCH (15:15)
== END 2022-07-09 17:22 | disposition home or self-care (01) | DRG 305 ==
LOC: JER 07:54 → JERBED 09:13 → J4W 23:53
PROVIDERS: ADMIT Internal Medicine; ATTEND Internal Medicine
DX: I16.1 Hypertensive emergency (principal); E11.9 Type 2 diabetes mellitus without complications; R07.9 Chest pain, unspecified; R51.9 Headache, unspecified; I16.0 Hypertensive urgency
CPT/HCPCS: 36415; 71045-TC-FY; 78452-TC; 80053; 80061; 82962; 83036; 83735; 84100; 84443; 84484; 85025; 93005; 93010; 93017; 93306-TC; 99285-25; A9502; C9803-CS; U0003; U0005

== ENCOUNTER 2024-06-12 11:27 | Emergency (ER) | payer OTHER ==
[2024-06-12 11:31] VITALS: BP 148/93; PULSE 83; RESP 18; TEMP 98.1; BMI 36.0
[2024-06-12] MEDS ORDERED: KETOROLAC TROMETHAMINE 30 MG/1 ML VIAL ONE (12:31)
[2024-06-12] MEDS ORDERED: LIDOCAINE 4% PATCH TP ONE (12:31)
[2024-06-12] MEDS: KETOROLAC TROMETHAMINE 30 MG/1 ML VIAL IM ONE (12:36)
[2024-06-12] MEDS: LIDOCAINE 4% PATCH TP ONE (12:37)
[2024-06-12] MEDS ORDERED: LIDOCAINE PATCH REMOVAL MC SCH (22:00)
== END 2024-06-12 12:56 | disposition home or self-care (01) ==
LOC: JERFT 11:27
PROC: 3E0233Z Introduction of Anti-inflammatory into Muscle, Percutaneous Approach (ICD-10-PCS; principal; 2024-06-12)
DX: M54.50 Low back pain, unspecified (principal); M62.830 Muscle spasm of back
CPT/HCPCS: 99284-25

== ENCOUNTER 2024-08-08 06:52 | Observation (INO) | payer OTHER ==
[2024-08-08] MEDS ORDERED: ACETAMINOPHEN 500 MG TABLET (FP) ONE (08:11)
[2024-08-08] MEDS: ACETAMINOPHEN 500 MG TABLET (FP) PO ONE (08:18)
[2024-08-08 08:30] LABS: INR 0.96 (0.83-1.09); PROTHROMBIN TIME (PATIENT) 10.9 SEC (9.7-13.0)
[2024-08-08 08:33] LABS: ACTIVATED PTT 51.2 SECONDS (25.2-36.5)
[2024-08-08 08:38] LABS: BASO % 1.3 % (0-2.0); EOS % 1.7 % (0-4.5); HEMATOCRIT 42.4 % (32.4-45.2); MCHC 33.1 g/dl (32.0-36.0); MEAN CELL VOLUME 87.8 fl (80-96); MEAN PLT VOLUME 9.6 fl (7.5-11.1); MONO % 6.6 % (3.8-10.2); NEUT % 63.4 % (42.8-82.8); PLATELET COUNT 304 10^3/uL (134-434); RBC 4.83 M/mm3 (3.60-5.2); RDW 15.1 % (11.6-15.6); WHITE BLOOD COUNT 5.9 K/mm3 (4.0-10.0)
[2024-08-08 08:54] LABS: POTASSIUM 4.2 mmol/L (3.5-5.1)
[2024-08-08 08:57] LABS: ALBUMIN 4.1 g/dl (3.4-5.0)
[2024-08-08 09:01] LABS: BILIRUBIN,TOTAL 0.6 mg/dL (0.2-1)
[2024-08-08 09:02] LABS: TOT PROT 7.4 g/dl (6.4-8.2)
[2024-08-08] MEDS ORDERED: MORPHINE SULFATE 2 MG/ML SYRINGE ONE (09:36)
[2024-08-08] MEDS ORDERED: ASPIRIN 81 MG CHEWABLE TABLETS ONE (09:36)
[2024-08-08] MEDS: ASPIRIN 81 MG CHEWABLE TABLETS PO ONE (09:41)
[2024-08-08] MEDS: morphine CARPU-JECT 2 MG/1 ML DISP.SYRIN IVPUSH ONE (09:41)
[2024-08-08 11:03] VITALS: BMI 37.3
[2024-08-08] MEDS: INSULIN ASPART SLIDING SCALE (NOVOLOG) 1 VIAL SQ SCH (13:28)
[2024-08-08] MEDS: ACETAMINOPHEN 325 MG TABLET (FP) PO PRN (14:05)
[2024-08-08] MEDS: ATORVASTATIN CA 80 MG TABLET (FP) PO ONE (14:05)
[2024-08-08 15:19] VITALS: RESP 18
[2024-08-08] MEDS: LABETALOL HCL 100 MG TABLET (FP) PO SCH (21:17)
[2024-08-08] MEDS ORDERED: ATORVASTATIN CA 20 MG TABLET (FP) PO SCH (22:00)
[2024-08-09 09:07] LABS: POTASSIUM 4.6 mmol/L (3.5-5.1)
[2024-08-09 09:11] LABS: BLOOD UREA NITROGEN 18.4 mg/dL (7-18)
[2024-08-09 09:12] LABS: MAGNESIUM 2.3 mg/dL (1.8-2.4)
[2024-08-09 09:13] LABS: CALCIUM 11.2 mg/dL (8.5-10.1)
[2024-08-09 09:14] LABS: CREATININE 1.1 mg/dL (0.55-1.3)
[2024-08-09] MEDS: ENOXAPARIN NA (PORCINE) 40 MG/0.4 ML DISP.SYRIN SQ SCH (10:32)
[2024-08-09] MEDS: NIFEdipine E.R. 30 MG TABLET PO SCH (10:32)
[2024-08-09] MEDS: LOSARTAN POTASSIUM 50 MG TABLET PO SCH (10:32)
[2024-08-09] MEDS ORDERED: SODIUM CHLORIDE 1,000 ML IV SCH ×2 (11:45)
[2024-08-09] MEDS: SODIUM CHLORIDE 500 ML IV SCH (11:54)
[2024-08-09 15:33] VITALS: BP 128/83; PULSE 75; TEMP 98.2
[2024-08-09] MEDS ORDERED: ATORVASTATIN CA 80 MG TABLET (FP) PO SCH (22:00)
== END 2024-08-09 16:07 | disposition home or self-care (01) ==
LOC: JER 06:52 → JERBED 09:39 → J4W 10:22
PROVIDERS: ADMIT Internal Medicine; ATTEND Internal Medicine
PROC: 3E023GC Introduction of Other Therapeutic Substance into Muscle, Percutaneous Approach (ICD-10-PCS; principal; 2024-08-08)
PROC: 3E033NZ Introduction of Analgesics, Hypnotics, Sedatives into Peripheral Vein, Percutaneous Approach (ICD-10-PCS; 2024-08-08)
PROC: 3E0337Z Introduction of Electrolytic and Water Balance Substance into Peripheral Vein, Percutaneous Approach (ICD-10-PCS; 2024-08-08)
DX: R07.9 Chest pain, unspecified (principal); E83.52 Hypercalcemia; R79.89 Other specified abnormal findings of blood chemistry; I10 Essential (primary) hypertension; E11.9 Type 2 diabetes mellitus without complications; Z29.89 Encounter for other specified prophylactic measures; E78.5 Hyperlipidemia, unspecified; F41.9 Anxiety disorder, unspecified; E66.9 Obesity, unspecified
CPT/HCPCS: 36415; 71046-TC-FY; 80048; 80053; 80061; 82306; 82962; 83036; 83735; 83970; 84439; 84443; 84484; 85025; 85610; 85730; 93005; 93010; 93306-TC; 96361; 96372; 96374; 99285-25; G0378

== ENCOUNTER 2025-08-09 09:29 | Observation (INO) | payer OTHER ==
[2025-08-09 10:16] LABS: MCHC 32.6 g/dl (32.2-35.5); MEAN CELL VOLUME 87.6 fl (79.4-94.8); MEAN PLT VOLUME 11.5 fl (9.4-12.3); RDW 13.9 % (12.3-16.6)
[2025-08-09] MEDS ORDERED: LABETALOL HCL 20 MG/4 ML VIAL ONE (10:20)
[2025-08-09 10:26] LABS: INR 0.95 (0.83-1.09); PROTHROMBIN TIME (PATIENT) 10.4 SEC (9.7-13.0)
[2025-08-09] MEDS: LABETALOL HCL 20 MG/4 ML VIAL IVPUSH ONE (10:26)
[2025-08-09 10:29] LABS: ACTIVATED PTT 47.0 SECONDS (25.2-36.5)
[2025-08-09 10:56] LABS: GLUCOSE,RANDOM 91.0 mg/dL (74-106)
[2025-08-09 10:57] LABS: CO2 23.0 mmol/L (21-32); TOT PROT 7.5 g/dl (6.4-8.2)
[2025-08-09 10:59] LABS: ALK PHOS 102.0 U/L (40-150)
[2025-08-09 11:02] LABS: CREATININE 0.81 mg/dL (0.55-1.3); SGOT/AST 23.0 U/L (5-34); SGPT/ALT 36.0 U/L (0-55)
[2025-08-09 11:20] LABS: HCV DIAGNOSTIC IN-HOUSE W/RFLX NON-REACTIVE (NONREACTIVE); HIV INTERPRETATION NEGATIVE (NEGATIVE)
[2025-08-09] MEDS ORDERED: LABETALOL HCL 200 MG TABLET (FP) ONE (11:22)
[2025-08-09] MEDS: SODIUM CHLORIDE 0.9% 500 ML INFUS.BAG IV ONE (11:22)
[2025-08-09] MEDS: LABETALOL HCL 200 MG TABLET (FP) PO ONE (11:25)
[2025-08-09] MEDS ORDERED: ACETAMINOPHEN INJECTION 100 ML ONE (12:31)
[2025-08-09 12:47] LABS: EPI CELLS >36 /uL (0-25.1); HYALINE CASTS 1 /uL (0-3.1); URINE APPEARANCE CLOUDY; URINE BACTERIA 4604 /uL (0-1359); URINE BILIRUBIN NEGATIVE (NEGATIVE); URINE COLOR YELLOW; URINE GLUCOSE (UA) NEGATIVE (NEGATIVE); URINE KETONE NEGATIVE (NEGATIVE); URINE LEUK ESTERASE NEGATIVE (NEGATIVE); URINE NITRITE NEGATIVE (NEGATIVE); URINE PROTEIN 3+ (NEGATIVE); URINE RBC 16 /uL (0-23.9); URINE UROBILINOGEN 0.2 mg/dL (0.2-1.0); URINE WBC 23 /uL (0-25.8)
[2025-08-09] MEDS: ACETAMINOPHEN 1000 MG/100 ML BAG IVPB ONE (12:56)
[2025-08-09 13:17] LABS: URINE CRYSTALS CA OXALATE FEW /hpf
[2025-08-09] MEDS ORDERED: ENOXAPARIN NA (PORCINE) 30 MG/0.3 ML DISP.SYRIN SQ ONE (16:22)
[2025-08-09] MEDS ORDERED: METOCLOPRAMIDE HCL INJECTION 10 MG/2 ML VIAL ONE (16:22)
[2025-08-09] MEDS ORDERED: NIFEdipine E.R. 30 MG TABLET PO ONE (16:22)
[2025-08-09] MEDS: ENOXAPARIN NA (PORCINE) 30 MG/0.3 ML DISP.SYRIN SQ SCH (16:36)
[2025-08-09] MEDS: METOCLOPRAMIDE HCL INJECTION 10 MG/2 ML VIAL IVPUSH ONE (16:36)
[2025-08-09] MEDS: NIFEdipine E.R. 30 MG TABLET PO ONE (16:36)
[2025-08-09] MEDS ORDERED: ACETAMINOPHEN 500 MG TABLET (FP) ONE (19:23)
[2025-08-09] MEDS: LABETALOL HCL 100 MG TABLET (FP) PO SCH (21:52)
[2025-08-09 23:52] VITALS: BMI 35.9
[2025-08-10] MEDS: ACETAMINOPHEN 500 MG TABLET (FP) PO PRN (04:08)
[2025-08-10] MEDS: NIFEdipine E.R 60 MG TABLET PO SCH (06:39)
[2025-08-10 09:13] LABS: MCHC 31.7 g/dl (32.2-35.5); MEAN CELL VOLUME 88.9 fl (79.4-94.8); MEAN PLT VOLUME 11.3 fl (9.4-12.3); RDW 14.3 % (12.3-16.6)
[2025-08-10 09:34] VITALS: RESP 18
[2025-08-10] MEDS ORDERED: NIFEdipine E.R. 30 MG TABLET PO SCH (10:00)
[2025-08-10 10:11] LABS: GLUCOSE,RANDOM 117.0 mg/dL (74-106); TOT PROT 7.0 g/dl (6.4-8.2)
[2025-08-10 10:12] LABS: CO2 24.0 mmol/L (21-32)
[2025-08-10 10:14] LABS: ALK PHOS 97.0 U/L (40-150)
[2025-08-10 10:17] LABS: CREATININE 0.8 mg/dL (0.55-1.3); SGOT/AST 20.0 U/L (5-34); SGPT/ALT 22.0 U/L (0-55)
[2025-08-10] MEDS ORDERED: LOSARTAN POTASSIUM 25 MG TABLET PO SCH (10:45)
[2025-08-10] MEDS: LOSARTAN POTASSIUM 50 MG TABLET PO SCH (11:40)
[2025-08-10 15:15] VITALS: BP 156/86; PULSE 81; TEMP 98.8
[2025-08-10] MEDS ORDERED: ATORVASTATIN CA 20 MG TABLET (FP) PO SCH (22:00)
== END 2025-08-10 16:43 | disposition home or self-care (01) ==
LOC: JER 09:29 → JERBED 14:24 → J6W TELE 21:24
PROVIDERS: ADMIT Student in an Organized Health Care Education/Training Program; ATTEND Internal Medicine
DX: I16.1 Hypertensive emergency (principal); I10 Essential (primary) hypertension; R80.9 Proteinuria, unspecified; R79.89 Other specified abnormal findings of blood chemistry; E78.5 Hyperlipidemia, unspecified; E55.9 Vitamin D deficiency, unspecified; Z79.899 Other long term (current) drug therapy; Z79.82 Long term (current) use of aspirin
CPT/HCPCS: 36415; 70450-TC; 70496-TC; 71045-TC-FY; 80053; 81003; 83735; 83880; 84100; 84484; 85025; 85027; 85610; 85730; 86803; 87389; 93005; 93010; 99291; G0378; Q9967